=== PATIENT | female | born 1940 | race Two or more races ===

== ENCOUNTER 2017-09-30 10:02 | Inpatient (IN) | payer MEDICARE, MEDICAID ==
[~2017-09-30] VITALS: Ht 162.6 cm; Wt 64.0 kg
[~2017-09-30 10:02] MED LIST: ACET325T82 PO; BUME1TAB PO; CIPR-173 PO; LEVO200I5 IV; METO1TAB9 PO; SPIR50TA23 PO
[2017-09-30] MEDS ORDERED: MORPHINE SULFATE 4 MG/ML SYR/VIAL IV PRN (11:15)
[2017-09-30] MEDS ORDERED: NITROGLYCERIN 0.4 MG SL TAB SL PRN (11:15)
[2017-09-30] MEDS ORDERED: ERTAPENEM SOD INJ 1 GM in SODIUM CHL 0.9% 50 ML IV ONE (11:15)
[2017-09-30 11:34] VITALS: BP 128/70
[2017-09-30 11:45] VITALS: BP 128/70
[2017-09-30] MEDS ORDERED: METO-158 PO (11:56)
[2017-09-30] MEDS ORDERED: LEVO75TA6 PO (11:56)
[2017-09-30] MEDS ORDERED: SPIR25TA89 PO (11:56)
[2017-09-30 12:13] LABS: Basophils # (auto) 0.1 uL; Eosinophils # (auto) 0.2 uL; Eosinophils % (auto) 2.4 % (0.0-7.0); Hematocrit 41.2 % (36.0-46.0); Hemoglobin 13.4 g/dL (12.2-16.2); Lymphocytes # (auto) 3.3 uL; Mean Corpuscular Hemoglobin 27.5 pg (28.0-32.0); Mean Corpuscular Hgb Conc. 32.4 g/dL (32.0-36.0); Mean Corpuscular Volume 84.8 fL (80.0-100.0); Monocytes # (auto) 0.6 uL; Monocytes % (auto) 6.6 % (0.0-12.0); Neutrophils # (auto) 4.7 uL; Nucleated Red Blood Cells % 0.1 %; Platelet Count (auto) 329 10^3/uL (140-450); Red Blood Cells 4.86 10^6/uL (4.0-5.20); Red Cell Distribution Width 14.8 % (11.8-14.3); White Blood Cell 8.8 10^3/uL (4.4-10.8)
[2017-09-30 12:35] LABS: Albumin 3.6 g/dL (3.4-5.0); BUN/Creatinine Ratio 20.8; Calcium 9.3 mg/dL (8.5-10.1); Potassium 4.6 mmol/L (3.5-5.1)
[2017-09-30 12:38] LABS: Bilirubin, Total 0.3 mg/dL (0.2-1.0); Total Protein 7.9 g/dL (6.4-8.2)
[2017-09-30 13:04] LABS: Urine Bacteria NONE SEEN /hpf (None Seen); Urine Blood Negative /uL (Negative); Urine Specific Gravity 1.004 (1.001-1.035); Urine WBC <1 /hpf (0 - 5)
[2017-09-30] MEDS ORDERED: LIDOCAINE 1% HCL (LOCAL ANESTH.) INJ 20ML MDV ID ONE (14:45)
[2017-09-30 17:12] VITALS: BP 117/67
[2017-09-30 22:00] VITALS: BP 111/67
[2017-09-30] MEDS: SODIUM CHLOR 0.9% PF (SALINE LOCK) 10ML VIAL IV SCH (22:00)
[2017-09-30] MEDS: METOPROLOL TARTRATE 25 MG TAB PO SCH (22:15)
[2017-10-01 06:00] VITALS: BP 135/72
[2017-10-01] MEDS ORDERED: LEVOTHYROXINE SODIUM 25 MCG TAB PO SCH (07:00)
[2017-10-01 09:13] VITALS: BP 112/52
[2017-10-01] MEDS: ERTAPENEM SOD INJ 1 GM in SODIUM CHL 0.9% 50 ML IV SCH (11:32)
[2017-10-01] MEDS: BUMETANIDE 1 MG TAB PO SCH (11:33)
[2017-10-01] MEDS: SPIRONOLACTONE 25 MG TAB PO SCH (11:33)
[2017-10-01] MEDS: METOPROLOL TARTRATE 25 MG TAB PO SCH ×2 (11:33→21:21)
[2017-10-01] MEDS: SODIUM CHLOR 0.9% PF (SALINE LOCK) 10ML VIAL IV SCH ×2 (11:34→21:21)
[2017-10-01] MEDS: DOCUSATE SOD 100 MG CAP PO PRN (11:58)
[2017-10-01] MEDS: ACETAMINOPHEN 500 MG TAB PO PRN ×2 (12:17→18:01)
[2017-10-01 12:30] VITALS: BP 127/75
[2017-10-01 17:00] VITALS: BP 109/60
[2017-10-01 21:32] VITALS: BP 120/71
[2017-10-02 05:24] VITALS: BP 109/67
[2017-10-02] MEDS ORDERED: LEVOTHYROXINE SODIUM 25 MCG TAB PO SCH (07:00)
[2017-10-02 08:00] VITALS: BP 124/98
[2017-10-02] MEDS: SPIRONOLACTONE 25 MG TAB PO SCH (10:52)
[2017-10-02] MEDS: DOCUSATE SOD 100 MG CAP PO PRN (10:52)
[2017-10-02] MEDS: BUMETANIDE 1 MG TAB PO SCH (10:53)
[2017-10-02] MEDS: SODIUM CHLOR 0.9% PF (SALINE LOCK) 10ML VIAL IV SCH (10:53)
[2017-10-02] MEDS: ERTAPENEM SOD INJ 1 GM in SODIUM CHL 0.9% 50 ML IV SCH (10:53)
[2017-10-02] MEDS: METOPROLOL TARTRATE 25 MG TAB PO SCH (10:55)
[2017-10-02 12:00] VITALS: BP 105/50
[2017-10-02 12:02] VITALS: BP 124/98
== END 2017-10-02 13:15 | disposition home or self-care (01) | DRG 463 ==
LOC: TELE-WESTW 10:02
PROVIDERS: ADMIT Internal Medicine; ATTEND Internal Medicine
PROC: 02HV33Z Insertion of Infusion Device into Superior Vena Cava, Percutaneous Approach (ICD-10-PCS; principal; 2017-09-30)
DX: N39.0 Urinary tract infection, site not specified (principal); I42.0 Dilated cardiomyopathy; B96.20 Unspecified Escherichia coli [E. coli] as the cause of diseases classified elsewhere; E03.9 Hypothyroidism, unspecified; Z79.899 Other long term (current) drug therapy
CPT/HCPCS: 36415; 36569; 71045; 80053; 81001; 84443; 85025; J1335

== ENCOUNTER 2018-08-30 04:15 | Inpatient (IN) | payer MEDICAID, MEDICARE ==
[~2018-08-30] VITALS: Ht 160 cm; Wt 67.7 kg
[~2018-08-30 04:15] MED LIST changes: -CIPR-173 PO; -LEVO200I5 IV; +LEVO75TA6 PO; +METO-158 PO; -METO1TAB9 PO; +SPIR25TA8 PO; -SPIR50TA23 PO
[2018-08-30 05:48] LABS: Basophils # (auto) 0.1 uL; Basophils % (auto) 0.7 % (0.0-2.0); Eosinophils # (auto) 0.1 uL; Eosinophils % (auto) 1.3 % (0.0-7.0); Hematocrit 41.9 % (36.0-46.0); Hemoglobin 13.6 g/dL (12.2-16.2); Lymphocytes # (auto) 1.7 uL; Lymphocytes % (auto) 21.1 % (10.0-50.0); Mean Corpuscular Hemoglobin 27.8 pg (28.0-32.0); Mean Corpuscular Hgb Conc. 32.4 g/dL (32.0-36.0); Mean Corpuscular Volume 85.7 fL (80.0-100.0); Monocytes # (auto) 0.6 uL; Monocytes % (auto) 7.5 % (0.0-12.0); Neutrophils # (auto) 5.5 uL; Neutrophils % (auto) 69.4 % (37.0-80.0); Platelet Count (auto) 300 10^3/uL (140-450); Red Blood Cells 4.88 10^6/uL (4.0-5.20); Red Cell Distribution Width 15.5 % (11.8-14.3); White Blood Cell 7.9 10^3/uL (4.4-10.8)
[2018-08-30 06:10] LABS: Albumin 3.2 g/dL (3.4-5.0); Calcium 8.3 mg/dL (8.5-10.1); Potassium 4.1 mmol/L (3.5-5.1)
[2018-08-30 06:16] LABS: BUN/Creatinine Ratio 18.3; Bilirubin, Total 0.3 mg/dL (0.2-1.0)
[2018-08-30 07:01] LABS: Urine Bacteria NONE SEEN /hpf (None Seen); Urine Blood Negative /uL (Negative); Urine Specific Gravity 1.013 (1.001-1.035); Urine WBC <1 /hpf (0 - 5)
[2018-08-30] MEDS ORDERED: FUROSEMIDE 20 MG/2 ML VIAL IV ONE (08:15)
[2018-08-30] MEDS ORDERED: ALBUTEROL SULF 2.5 MG/0.5ML(0.5%) NEB SOLN NEB PRN (09:45)
[2018-08-30] MEDS ORDERED: LORazepam 0.5 MG TAB PO PRN (09:45)
[2018-08-30] MEDS ORDERED: ACETAMINOPHEN 500 MG TAB PO PRN (09:45)
[2018-08-30] MEDS ORDERED: TEMAZEPAM 15 MG CAP PO PRN (09:45)
[2018-08-30] MEDS ORDERED: HYDROcodone-ACET 5/325MG TAB PO PRN (09:45)
[2018-08-30] MEDS ORDERED: LACTULOSE 20Gm/30ML SOLN PO PRN (09:45)
[2018-08-30] MEDS ORDERED: PROMETHAZINE HCL 25 MG/ML 1ML IV PRN (09:45)
[2018-08-30] MEDS ORDERED: MORPHINE SULFATE 10 MG/ML INJ 1ML SDV IV PRN ×2 (09:45)
[2018-08-30] MEDS ORDERED: NITROGLYCERIN 0.4 MG SL TAB SL PRN (09:45)
[2018-08-30] MEDS ORDERED: POTASSIUM CHL 20 Meq TABLET PO SCH (10:00)
[2018-08-30] MEDS ORDERED: METOPROLOL TARTRATE 50 MG TAB PO SCH (10:00)
[2018-08-30] MEDS: FUROSEMIDE 40 MG/4 ML VIAL IV SCH (10:00)
--- NOTE | 2018-08-30 10:38 | NUR ---
Respiratory note: ASSESSED PATIENT FOR PRN TX. PATIENT IS SLIGHTLY SHORT OF BREATH, PT IS AWAKE AND ALERT. BREATH SOUNDS ARE CLEAR, HR 88, RR 16, SPO2 100% ON 2 L NASAL CANNULA. PATIENT TOLERATED TX WELL, NO ADVERSE REACTIONS NOTED. PATIENT AND PATIENT FAMILY IS AWARE TO HAVE RESPIRATORY PAGED IF BREATHING TX IS NEEDED. WILL CONTINUE TO MONITOR PATIENT.
[2018-08-30 10:59] VITALS: BP 112/62
[2018-08-30] MEDS: SPIRONOLACTONE 25 MG TAB PO SCH (11:12)
[2018-08-30] MEDS: PANTOPRAZOLE 40 MG TAB PO SCH (11:12)
[2018-08-30] MEDS: ENOXAPARIN SOD 40 MG/0.4 ML SYRINGE SC SCH (11:13)
[2018-08-30] MEDS: SODIUM CHLOR 0.9% PF (SALINE LOCK) 10ML VIAL/SYR IV SCH ×2 (14:13→23:28)
--- NOTE | 2018-08-30 14:45 | NUR ---
Telemetry admit from [facility] admitted to Telemetry unit after SBAR received. Patient oriented to Kenia Ventura, primary RN, unit, room, bed, and unit policies regarding patient care and visiting hours. Patient now on continuous telemetry monitoring, tele box # HC1 and telemetry reading on arrival to unit is . Patient placed on bedside oxygen, weighed by bedscale and encouraged to call if they need something. All questions and concerns addressed, patient verbalized understanding. Note: PT SPEAKS RESTORATION AND CAN ONLY SPEAK AND UNDERSTAND VERY VERY LITTLE JAPANESE. SON WAS AT BEDSIDE TO INTERPRET FOR PT. SON'S CONTACT INFORMATION ON FILE.
[2018-08-30] MEDS ORDERED: ALLO100T PO (15:08)
[2018-08-30] MEDS ORDERED: METO25TA5 PO (15:08)
[2018-08-30] MEDS ORDERED: DOCU100T15 PO (15:08)
[2018-08-30] MEDS ORDERED: LEVO100T8 PO (15:08)
[2018-08-30 16:58] VITALS: BP 104/61
--- NOTE | 2018-08-30 19:00 | NUR ---
Opening Shift Note Assumed care of patient, awake and alert. Family on bedside No S/S of distress/SOB or pain. Instructed on POC and to call for assist PRN, will continue to monitor for changes Q1hr and PRN.
--- NOTE | 2018-08-30 19:28 | NUR ---
Respiratory note: ASSESSMENT FOR MED NEB TX. PT PRESENTING NO RESPIRATORY DISTRESS AT THIS TIME. HR 88, SPO2 96% ON ROOM AIR, RR 20, BS CLEAR/DIMINISHED. MED NEB TX NOT INDICATED AT THIS TIME, WILL CONTINUE TO MONITOR.
[2018-08-30 20:00] VITALS: BP 103/65
[2018-08-30 22:00] VITALS: BP 103/65
[2018-08-31 05:00] VITALS: BP 107/59
[2018-08-31 05:15] LABS: Albumin 3.2 g/dL (3.4-5.0); Calcium 8.4 mg/dL (8.5-10.1); Potassium 4.4 mmol/L (3.5-5.1)
[2018-08-31 05:20] LABS: BUN/Creatinine Ratio 19.3; Bilirubin, Total 0.6 mg/dL (0.2-1.0); Total Protein 6.7 g/dL (6.4-8.2)
[2018-08-31] MEDS: SODIUM CHLOR 0.9% PF (SALINE LOCK) 10ML VIAL/SYR IV SCH (06:39)
[2018-08-31] MEDS ORDERED: LEVOTHYROXINE SODIUM 100 MCG TAB PO SCH (07:00)
--- NOTE | 2018-08-31 07:30 | NUR ---
Opening Shift Note Assumed care of patient, awake and alert. No S/S of distress/SOB or pain. Instructed on POC and to call for assist PRN, will continue to monitor for changes Q1hr and PRN.
[2018-08-31 08:00] VITALS: BP 96/48
[2018-08-31 09:00] VITALS: BP 96/48
[2018-08-31] MEDS ORDERED: METOPROLOL SUCCINATE XL 50 MG TAB PO SCH (10:00)
[2018-08-31] MEDS: ENOXAPARIN SOD 40 MG/0.4 ML SYRINGE SC SCH (10:01)
[2018-08-31] MEDS: FUROSEMIDE 40 MG/4 ML VIAL IV SCH (10:01)
[2018-08-31] MEDS: SPIRONOLACTONE 25 MG TAB PO SCH (10:01)
[2018-08-31] MEDS: PANTOPRAZOLE 40 MG TAB PO SCH (10:01)
--- NOTE | 2018-08-31 10:09 | NUR ---
RT NOTE: NO INDICATION FOR TX NOTED AT THIS TIME. NO SIGNS OF RESPIRATORY DISTRESS. LUNG SOUNDS CLEAR DIMINISHED T/O. ON 1L NC SPO2 97 HR 79 RR 18. FAMILY AND RN AT BEDSIDE. WILL CONTINUE TO MONITOR.
[2018-08-31 13:00] VITALS: BP 102/51
[2018-08-31 14:25] VITALS: BP 96/48
--- NOTE | 2018-08-31 15:49 | NUR ---
Discharge instructions given as ordered. Encourage to follow up with PMD as instructed. All questions and concerns addressed. Patient verbalized understanding. Medication reconciliation form completed and copy given to patient. H. IV removed with catheter intact, pressure dressing applied. Telemetry unit returned to ICU. Patient taken to vehicle via wheelchair with all personal belongings, accompanied by staff and family member. No distress noted at time of departure.
== END 2018-08-31 16:00 | disposition home or self-care (01) | DRG 194 ==
LOC: EDUNIT# 04:15 → ER 04:15 → EDBD 04:15 → EDSEX 04:15 → TELE 09:34 → TELE-WESTW 15:06
PROVIDERS: ADMIT Internal Medicine; ATTEND Internal Medicine
DX: I13.0 Hypertensive heart and chronic kidney disease with heart failure and stage 1 through stage 4 chronic kidney disease, or unspecified chronic kidney disease (principal); J96.20 Acute and chronic respiratory failure, unspecified whether with hypoxia or hypercapnia; R57.9 Shock, unspecified; N18.3 Chronic kidney disease, stage 3 (moderate); E03.9 Hypothyroidism, unspecified; I08.0 Rheumatic disorders of both mitral and aortic valves; I25.10 Atherosclerotic heart disease of native coronary artery without angina pectoris; I42.0 Dilated cardiomyopathy; I50.43 Acute on chronic combined systolic (congestive) and diastolic (congestive) heart failure; R73.9 Hyperglycemia, unspecified; Z91.14 Patient's other noncompliance with medication regimen; Z91.19 Patient's noncompliance with other medical treatment and regimen; Z99.81 Dependence on supplemental oxygen; Z90.49 Acquired absence of other specified parts of digestive tract; Z88.0 Allergy status to penicillin; Z79.899 Other long term (current) drug therapy; Z83.3 Family history of diabetes mellitus
CPT/HCPCS: 36415; 36600; 71045; 80053; 81001; 82550; 82805; 83605; 83880; 84443; 84484; 85025; 85379; 87040; 87804; 93005; 93306; 94640; 94761; 96372; 96374; 96375; G0378

== ENCOUNTER 2019-06-14 10:51 | Inpatient (IN) | payer MEDICARE, MEDICAID ==
[~2019-06-14] VITALS: Ht 160 cm; Wt 67.8 kg
[~2019-06-14 10:51] MED LIST changes: +ALLO100T PO; -BUME1TAB PO; +BUME1TAB3 PO; +DOCU100T15 PO; +LEVO100T8 PO; -LEVO75TA6 PO; -METO-158 PO; +METO25TA5 PO
[2019-06-14 11:25] VITALS: BP 136/73
--- NOTE | 2019-06-14 11:30 | NUR ---
RECEIVED PATIENT TO THE FLOOR, AWAKE ALERT AND ORIENTED. PATIENT AMBULATED TO BATHROOM STAND BY ASSIST. FAMILY AT BEDSIDE PATIENT DOES NOT SPEAK FRISIAN. BED LOCKED IN LOWEST POSITION WITH TWO SIDE RAILS UP AND CALL LIGHT IN REACH. INSTRUCTED ON THE PLAN OF CARE.
[2019-06-14] MEDS ORDERED: cefTRIAXone 1GM/50ML D5W 50 ML IV ONE (11:45)
[2019-06-14] MEDS ORDERED: ACETAMINOPHEN 500 MG TAB PO PRN (11:45)
[2019-06-14] MEDS ORDERED: MORPHINE SULF INJ 2 MG/ML SYRINGE 1ML IV PRN (11:45)
[2019-06-14] MEDS ORDERED: DOCUSATE SOD 100 MG CAP PO PRN (11:45)
[2019-06-14] MEDS ORDERED: NITROGLYCERIN 0.4 MG SL TAB SL PRN (11:45)
[2019-06-14] MEDS ORDERED: AZITHROMYCIN 500MG/ 250ML 250 ML IV ONE (11:45)
[2019-06-14] MEDS: ALBUTEROL SULF 2.5 MG/0.5ML(0.5%) NEB SOLN NEB SCH ×2 (12:20→19:31)
[2019-06-14] MEDS: IPRATROPIUM BROM 0.5 MG/2.5ML INH SOL NEB SCH ×2 (12:20→19:31)
[2019-06-14 13:20] LABS: Basophils # (auto) 0.1 uL; Basophils % (auto) 0.6 % (0.0-2.0); Eosinophils # (auto) 0.1 uL; Eosinophils % (auto) 1.2 % (0.0-7.0); Hemoglobin 14.3 g/dL (12.2-16.2); Lymphocytes # (auto) 3.1 uL; Lymphocytes % (auto) 27.6 % (10.0-50.0); Mean Corpuscular Hemoglobin 27.4 pg (28.0-32.0); Mean Corpuscular Hgb Conc. 32.5 g/dL (32.0-36.0); Mean Corpuscular Volume 84.4 fL (80.0-100.0); Monocytes # (auto) 0.8 uL; Monocytes % (auto) 6.8 % (0.0-12.0); Neutrophils # (auto) 7.1 uL; Neutrophils % (auto) 63.8 % (37.0-80.0); Platelet Count (auto) 341 10^3/uL (140-450); Red Blood Cells 5.22 10^6/uL (4.0-5.20); Red Cell Distribution Width 14.7 % (11.8-14.3); White Blood Cell 11.1 10^3/uL (4.4-10.8)
[2019-06-14 13:37] LABS: Albumin 3.6 g/dL (3.4-5.0); BUN/Creatinine Ratio 20.9; Calcium 8.8 mg/dL (8.5-10.1); Potassium 4.3 mmol/L (3.5-5.1)
[2019-06-14 13:40] LABS: Bilirubin, Total 0.3 mg/dL (0.2-1.0); Total Protein 7.7 g/dL (6.4-8.2)
[2019-06-14] MEDS ORDERED: BUMETANIDE 1 MG TAB PO ONE (16:00)
[2019-06-14 17:00] VITALS: BP 114/67
--- NOTE | 2019-06-14 18:35 | NUR ---
URINE SENT OUT TO LAB AWAITING TO COLLECT RESPIRATORY CULTURE. PER PATIENTS DAUGHTER NO PHLEGM PRESENT.
[2019-06-14 19:32] LABS: Urine Bacteria NONE SEEN /hpf (None Seen); Urine Blood Negative /uL (Negative); Urine Specific Gravity 1.005 (1.001-1.035); Urine WBC <1 /hpf (0 - 5)
--- NOTE | 2019-06-14 19:36 | NUR ---
Opening Shift Note Assumed care of patient, awake and alert. No S/S of distress/SOB or pain. Safety measures in place bed in lowest position, side rails x 2 up, and call light within reach. Instructed on POC and to call for assist PRN, will continue to monitor for changes Q1hr and PRN.
[2019-06-14 20:00] VITALS: BP 120/69
--- NOTE | 2019-06-14 20:15 | NUR ---
DAUGHTER RUTH ANN WILL STAY OVER NIGHT WITH PATIENT APPROVED BY CHARGE NURSE, MARIBELL.
--- NOTE | 2019-06-14 21:27 | NUR ---
Opening Shift Note Assumed care of patient, awake and alert. Family at bed side. No S/S of distress/SOB or pain. Safety measures in place bed in lowest position, side rails x 2 up, and call light within reach. Instructed on POC and to call for assist PRN, will continue to monitor for changes Q1hr and PRN. Addendum: 06/14/19 at 2131 by JERONIMO OSWALD RN RN WRONG TIME
[2019-06-14 21:36] VITALS: BP 120/69
[2019-06-14] MEDS: METOPROLOL TARTRATE 25 MG TAB PO SCH (22:00)
--- NOTE | 2019-06-14 22:00 | NUR ---
220 LOPRESSOR REFUSED PATIENTS DAUGHTER/CAREGIVER RUTH ANN, "WE ONLY GIVE HER HER BLOOD PRESSURE MEDICATION WHEN IT GETS HIGH, ITS OK TO SKIP THIS DOSE" RISKS OF SKIPPING SCHEDULE MEDICATIONS EXPLAINED. CAREGIVER VERBALIZES UNDERSTANDING. CONTINUES TO REFUSE.
[2019-06-14 23:28] VITALS: BP 120/69
[2019-06-15 04:48] VITALS: BP 112/63
[2019-06-15] MEDS: IPRATROPIUM BROM 0.5 MG/2.5ML INH SOL NEB SCH ×2 (05:44→11:45)
[2019-06-15] MEDS: ALBUTEROL SULF 2.5 MG/0.5ML(0.5%) NEB SOLN NEB SCH ×2 (05:44→11:45)
[2019-06-15 06:01] LABS: Basophils # (auto) 0.1 uL; Basophils % (auto) 0.6 % (0.0-2.0); Eosinophils # (auto) 0.1 uL; Eosinophils % (auto) 0.9 % (0.0-7.0); Hematocrit 40.2 % (36.0-46.0); Hemoglobin 13.5 g/dL (12.2-16.2); Lymphocytes # (auto) 3.2 uL; Lymphocytes % (auto) 31.5 % (10.0-50.0); Mean Corpuscular Hemoglobin 28.3 pg (28.0-32.0); Mean Corpuscular Hgb Conc. 33.6 g/dL (32.0-36.0); Mean Corpuscular Volume 84.1 fL (80.0-100.0); Monocytes # (auto) 0.7 uL; Monocytes % (auto) 7.5 % (0.0-12.0); Neutrophils % (auto) 59.5 % (37.0-80.0); Nucleated Red Blood Cells % 0.1 %; Platelet Count (auto) 313 10^3/uL (140-450); Red Blood Cells 4.78 10^6/uL (4.0-5.20); Red Cell Distribution Width 14.3 % (11.8-14.3)
[2019-06-15 06:11] LABS: Potassium 4.4 mmol/L (3.5-5.1)
[2019-06-15 06:17] LABS: BUN/Creatinine Ratio 22.1; Calcium 8.6 mg/dL (8.5-10.1)
[2019-06-15] MEDS ORDERED: LEVOTHYROXINE SODIUM 100 MCG TAB PO SCH (07:00)
--- NOTE | 2019-06-15 07:35 | NUR ---
CARE ENDORSED TO DAY SHIFT RNSANDOR
--- NOTE | 2019-06-15 07:46 | NUR ---
OPENING NOTE Assumed care of patient from NOC RNNicole. Patient awake and alert with no S/S of distress/SOB or pain. Patient's daughter is at bedside and is also retail stocker. Instructed on POC and to call for assist PRN, patient and daughter verbalized understanding. Bed in lowest, locked position with side rails up x2. Fall precautions in place and call light within reach. Will continue to monitor for changes Q1hr and PRN.
[2019-06-15 08:30] VITALS: BP 131/67
[2019-06-15] MEDS ORDERED: cefTRIAXone 1GM/50ML D5W 50 ML IV SCH (09:00)
[2019-06-15] MEDS: METOPROLOL TARTRATE 25 MG TAB PO SCH (09:36)
[2019-06-15] MEDS ORDERED: ALLOPURINOL 100 MG TAB PO SCH (10:00)
[2019-06-15] MEDS ORDERED: AZITHROMYCIN 500MG/ 250ML 250 ML IV SCH (10:00)
[2019-06-15] MEDS ORDERED: BUMETANIDE 1 MG TAB PO SCH (10:00)
[2019-06-15] MEDS ORDERED: SPIRONOLACTONE 25 MG TAB PO SCH (10:00)
--- NOTE | 2019-06-15 10:18 | NUR ---
ROUNDS Patient resting in bed, no S/S of SOB/distress noted. Patient's daughter at bedside. Will continue to monitor.
[2019-06-15 12:30] VITALS: BP 107/64
--- NOTE | 2019-06-15 13:50 | NUR ---
DISCHARGE Discharge instructions given as ordered. Encouraged to follow up with PMD/cardiology as instructed. All questions and concerns addressed, patient/daughter verbalized understanding. Medication reconciliation form completed and copy given to patient. IV removed with catheter intact and pressure dressing applied. Telemetry unit returned to ICU. Patient taken to vehicle via wheelchair with all personal belongings, accompanied by staff and family member. No distress noted at time of departure.
== END 2019-06-15 13:50 | disposition home or self-care (01) | DRG 202 ==
LOC: TELE-EAST 10:51
PROVIDERS: ADMIT Internal Medicine; ATTEND Internal Medicine
DX: J20.9 Acute bronchitis, unspecified (principal); I50.23 Acute on chronic systolic (congestive) heart failure; L02.214 Cutaneous abscess of groin; N18.3 Chronic kidney disease, stage 3 (moderate); E03.9 Hypothyroidism, unspecified; M10.9 Gout, unspecified; G25.81 Restless legs syndrome; Z91.81 History of falling; Z88.0 Allergy status to penicillin
CPT/HCPCS: 36415; 70450; 71045; 80048; 80053; 81001; 83880; 84443; 85025; 87040; 94640; G0378; J0696

== ENCOUNTER 2019-10-11 10:35 | Emergency (ER) | payer MEDICARE, MEDICAID ==
[2019-10-11 11:47] LABS: Basophils # (auto) 0 uL; Basophils % (auto) 0.5 % (0.0-2.0); Eosinophils # (auto) 0.1 uL; Eosinophils % (auto) 1.2 % (0.0-7.0); Hematocrit 38.3 % (36.0-46.0); Hemoglobin 12.6 g/dL (12.2-16.2); Lymphocytes # (auto) 2.7 uL; Lymphocytes % (auto) 30.7 % (10.0-50.0); Mean Corpuscular Hemoglobin 27.9 pg (28.0-32.0); Mean Corpuscular Hgb Conc. 32.9 g/dL (32.0-36.0); Mean Corpuscular Volume 84.9 fL (80.0-100.0); Monocytes # (auto) 0.9 uL; Monocytes % (auto) 9.6 % (0.0-12.0); Neutrophils # (auto) 5.2 uL; Platelet Count (auto) 285 10^3/uL (140-450); Red Blood Cells 4.51 10^6/uL (4.0-5.20); Red Cell Distribution Width 14.9 % (11.8-14.3); White Blood Cell 8.9 10^3/uL (4.4-10.8)
[2019-10-11 12:05] LABS: Albumin 3.1 g/dL (3.4-5.0); Calcium 8.7 mg/dL (8.5-10.1); Potassium 4.1 mmol/L (3.5-5.1)
[2019-10-11 12:11] LABS: BUN/Creatinine Ratio 20.3; Bilirubin, Total 0.3 mg/dL (0.2-1.0); Total Protein 7.2 g/dL (6.4-8.2)
[2019-10-11 13:00] VITALS: BP 112/65
== END 2019-10-11 13:51 | disposition home or self-care (01) ==
LOC: ER 10:35
DX: I13.0 Hypertensive heart and chronic kidney disease with heart failure and stage 1 through stage 4 chronic kidney disease, or unspecified chronic kidney disease (principal); N18.3 Chronic kidney disease, stage 3 (moderate); I50.9 Heart failure, unspecified; Z90.49 Acquired absence of other specified parts of digestive tract
CPT/HCPCS: 36415; 71045; 80053; 83880; 84484; 85025; 93005

== ENCOUNTER 2020-09-27 02:39 | Emergency (ER) | payer MEDICARE, MEDICAID ==
[~2020-09-27] VITALS: Ht 160 cm; Wt 62.6 kg
[2020-09-27 03:14] VITALS: BP 138/78
== END 2020-09-27 03:37 | disposition left against medical advice (07) ==
LOC: EDBD 02:39 → ER 02:43
DX: R51.9 Headache, unspecified (principal); Z53.21 Procedure and treatment not carried out due to patient leaving prior to being seen by health care provider
CPT/HCPCS: 93005

== ENCOUNTER → 2021-01-10 | Outpatient (CLI) | payer MEDICARE, MEDICAID | END | disposition home or self-care (01) | LOC: LAB 17:52 | PROVIDERS: ATTEND Nurse Practitioner Family | DX: Z20.822 Contact with and (suspected) exposure to COVID-19 (principal) | CPT/HCPCS: C9803; U0003 ==

== ENCOUNTER 2021-11-14 14:36 | Inpatient (IN) | payer MEDICARE, MEDICAID ==
[~2021-11-14] VITALS: Ht 162.6 cm; Wt 66.6 kg
[2021-11-14 15:42] LABS: Basophils # (auto) 0.1 10 ^3/uL (0-0.2); Basophils % (auto) 0.7 % (0.0-2.0); Eosinophils # (auto) 0.1 10 ^3/uL (0-0.8); Eosinophils % (auto) 1.4 % (0.0-7.0); Hematocrit 37.2 % (36.0-46.0); Hemoglobin 12.4 g/dL (12.2-16.2); Lymphocytes # (auto) 2.7 10 ^3/uL (0.4-5.4); Lymphocytes % (auto) 28.7 % (10.0-50.0); Mean Corpuscular Hemoglobin 27.6 pg (28.0-32.0); Mean Corpuscular Hgb Conc. 33.4 g/dL (32.0-36.0); Mean Corpuscular Volume 82.5 fL (80.0-100.0); Monocytes # (auto) 0.6 10 ^3/uL (0-1.3); Monocytes % (auto) 6.7 % (0.0-12.0); Neutrophils # (auto) 5.8 10 ^3/uL (1.6-8.6); Neutrophils % (auto) 62.5 % (37.0-80.0); Nucleated Red Blood Cells % 0.1 %; Red Blood Cells 4.51 10^6/uL (4.0-5.20); Red Cell Distribution Width 15.3 % (11.8-14.3); White Blood Cell 9.3 10^3/uL (4.4-10.8)
[2021-11-14 15:59] LABS: Albumin 3.2 g/dL (3.4-5.0); Magnesium 2.3 mg/dL (1.6-2.6); Potassium 4.4 mmol/L (3.5-5.1)
[2021-11-14 16:05] LABS: BUN/Creatinine Ratio 19.5; Bilirubin, Total 0.4 mg/dL (0.2-1.0)
[2021-11-14 16:21] LABS: INR 1.06 (0.9-1.15); Partial Thromboplastin Time 25.3 sec (23.6-33.0)
[2021-11-14] MEDS ORDERED: CIPROFLOXACIN 400MG/200ML 200 ML IV ONE (18:30)
[2021-11-14] MEDS ORDERED: cefTRIAXone 1GM/50ML D5W 50 ML IV ONE (18:30)
[2021-11-14] MEDS ORDERED: BUMETANIDE 1 MG TAB PO ONE (18:30)
[2021-11-14] MEDS ORDERED: ACETAMINOPHEN 325 MG TAB PO PRN (19:00)
[2021-11-14] MEDS ORDERED: TEMAZEPAM 15 MG CAP PO PRN (19:00)
[2021-11-14] MEDS ORDERED: NITROGLYCERIN 0.4 MG SL TAB SL PRN (19:00)
[2021-11-14] MEDS ORDERED: MORPHINE SULFATE INJECTION 2 MG/ML SYRG IV PRN (19:00)
[2021-11-14] MEDS ORDERED: ALUM & MAG HYDROX-SIMETH LIQ(MAALOX) 30 ML PO PRN (19:00)
[2021-11-14] MEDS ORDERED: HYDROcodone-ACET 5/325MG TAB PO PRN (19:00)
[2021-11-14] MEDS ORDERED: ONDANSETRON HCL 4 MG/2 ML VIAL IV PRN (19:00)
[2021-11-14] MEDS ORDERED: ERGOCALCIFEROL 50,000 UNIT(1.25MG) CAP PO SCH (19:45)
[2021-11-14 20:26] LABS: Urine Bacteria NONE SEEN /hpf (None Seen); Urine Blood Negative /uL (Negative); Urine Hyaline Cast FEW /lpf (0 - 2); Urine Specific Gravity 1.015 (1.001-1.035); Urine WBC <1 /hpf (0 - 5)
[2021-11-14] MEDS: SODIUM CHLOR 0.9% PF (SALINE LOCK) 10ML VIAL/SYR IV SCH (21:22)
[2021-11-14 22:00] VITALS: BP 127/65
[2021-11-15] MEDS: SODIUM CHLOR 0.9% PF (SALINE LOCK) 10ML VIAL/SYR IV SCH ×2 (05:04→18:54)
[2021-11-15 06:49] LABS: Basophils # (auto) 0 10 ^3/uL (0-0.2); Basophils % (auto) 0.4 % (0.0-2.0); Eosinophils # (auto) 0.1 10 ^3/uL (0-0.8); Eosinophils % (auto) 1.1 % (0.0-7.0); Hematocrit 37.4 % (36.0-46.0); Hemoglobin 12.9 g/dL (12.2-16.2); Lymphocytes # (auto) 3.4 10 ^3/uL (0.4-5.4); Lymphocytes % (auto) 36.6 % (10.0-50.0); Mean Corpuscular Hemoglobin 28.2 pg (28.0-32.0); Mean Corpuscular Hgb Conc. 34.5 g/dL (32.0-36.0); Mean Corpuscular Volume 81.6 fL (80.0-100.0); Monocytes # (auto) 0.7 10 ^3/uL (0-1.3); Monocytes % (auto) 7.8 % (0.0-12.0); Neutrophils % (auto) 54.1 % (37.0-80.0); Nucleated Red Blood Cells % 0.1 %; Red Blood Cells 4.59 10^6/uL (4.0-5.20); White Blood Cell 9.2 10^3/uL (4.4-10.8)
[2021-11-15 07:01] LABS: Albumin 3.2 g/dL (3.4-5.0); Calcium 9.1 mg/dL (8.5-10.1); Potassium 3.7 mmol/L (3.5-5.1)
[2021-11-15 07:03] LABS: BUN/Creatinine Ratio 20.9
[2021-11-15 07:05] LABS: Bilirubin, Total 0.3 mg/dL (0.2-1.0); Total Protein 7.2 g/dL (6.4-8.2)
[2021-11-15 09:00] VITALS: BP 119/64
[2021-11-15] MEDS ORDERED: OPTISON 3ml Vial for INJ IV ONE (09:55)
[2021-11-15] MEDS ORDERED: cefTRIAXone 1GM/50ML D5W 50 ML IV SCH (10:00)
[2021-11-15 13:00] VITALS: BP 119/63
[2021-11-15] MEDS ORDERED: ALLOPURINOL 100 MG TAB PO ONE (13:15)
[2021-11-15] MEDS ORDERED: BUMETANIDE 1 MG TAB PO ONE (13:15)
[2021-11-15] MEDS ORDERED: SPIRONOLACTONE 25 MG TAB PO ONE (13:15)
[2021-11-15 17:00] VITALS: BP 130/61
[2021-11-15 17:32] VITALS: BP 128/80
[2021-11-16] MEDS ORDERED: LEVOTHYROXINE SODIUM 50 MCG TAB PO SCH (07:00)
[2021-11-16] MEDS ORDERED: ALLOPURINOL 100 MG TAB PO SCH (10:00)
[2021-11-16] MEDS ORDERED: SPIRONOLACTONE 25 MG TAB PO SCH (10:00)
[2021-11-16] MEDS ORDERED: BUMETANIDE 1 MG TAB PO SCH (10:00)
== END 2021-11-15 19:06 | disposition home or self-care (01) | DRG 291 ==
LOC: ER 14:36 → EDBD 14:36 → TELE 18:54 → TELE-WESTW 20:41
PROVIDERS: ADMIT Internal Medicine; ATTEND Internal Medicine
DX: I13.0 Hypertensive heart and chronic kidney disease with heart failure and stage 1 through stage 4 chronic kidney disease, or unspecified chronic kidney disease (principal); I50.23 Acute on chronic systolic (congestive) heart failure; G92.8 Other toxic encephalopathy; N30.00 Acute cystitis without hematuria; I42.0 Dilated cardiomyopathy; E03.9 Hypothyroidism, unspecified; I48.91 Unspecified atrial fibrillation; N18.31 Chronic kidney disease, stage 3a; R59.0 Localized enlarged lymph nodes; Z20.822 Contact with and (suspected) exposure to COVID-19; E55.9 Vitamin D deficiency, unspecified; Z83.3 Family history of diabetes mellitus; Z88.0 Allergy status to penicillin; Z82.49 Family history of ischemic heart disease and other diseases of the circulatory system
CPT/HCPCS: 36415; 70450; 71045; 71250; 73030; 80053; 81001; 82962; 83036; 83615; 83735; 83880; 84439; 84443; 84484; 85025; 85610; 85730; 87086; 93005; 93306; 96365; G0378; J0696; Q9956

== ENCOUNTER 2023-02-21 11:21 | Emergency (ER) | payer MEDICARE, MEDICAID ==
[~2023-02-21] VITALS: Ht 160 cm; Wt 63.6 kg
[~2023-02-21 11:21] MED LIST changes: -ACET325T82 PO; -SPIR25TA8 PO
[2023-02-21 12:23] VITALS: BP 149/72
[2023-02-21] MEDS ORDERED: ACETAMINOPHEN 500 MG TAB PO ONE (13:15)
[2023-02-21 13:41] LABS: Basophils # (auto) 0.1 10 ^3/uL (0-0.2); Basophils % (auto) 0.7 % (0.0-2.0); Eosinophils # (auto) 0.1 10 ^3/uL (0-0.8); Eosinophils % (auto) 1.2 % (0.0-7.0); Hematocrit 40.5 % (36.0-46.0); Hemoglobin 13.2 g/dL (12.2-16.2); Lymphocytes # (auto) 3.1 10 ^3/uL (0.4-5.4); Lymphocytes % (auto) 32.1 % (10.0-50.0); Mean Corpuscular Hemoglobin 27.5 pg (28.0-32.0); Mean Corpuscular Hgb Conc. 32.6 g/dL (32.0-36.0); Mean Corpuscular Volume 84.5 fL (80.0-100.0); Monocytes # (auto) 0.7 10 ^3/uL (0-1.3); Monocytes % (auto) 7.3 % (0.0-12.0); Neutrophils # (auto) 5.6 10 ^3/uL (1.6-8.6); Neutrophils % (auto) 58.7 % (37.0-80.0); Nucleated Red Blood Cells % 0.1 %; Red Blood Cells 4.79 10^6/uL (4.0-5.20); Red Cell Distribution Width 15.1 % (11.8-14.3); White Blood Cell 9.6 10^3/uL (4.4-10.8)
[2023-02-21 13:55] LABS: Albumin 3.1 g/dL (3.4-5.0); Calcium 8.5 mg/dL (8.5-10.1); Potassium 4.2 mmol/L (3.5-5.1)
[2023-02-21 14:00] LABS: Bilirubin, Total 0.4 mg/dL (0.2-1.0); Total Protein 6.6 g/dL (6.4-8.2)
== END 2023-02-21 15:51 | disposition home or self-care (01) ==
LOC: ER 11:21 → EDBD 11:21 → ER 15:47
DX: S29.011A Strain of muscle and tendon of front wall of thorax, initial encounter (principal); S09.8XXA Other specified injuries of head, initial encounter; I48.91 Unspecified atrial fibrillation; I13.0 Hypertensive heart and chronic kidney disease with heart failure and stage 1 through stage 4 chronic kidney disease, or unspecified chronic kidney disease; N18.9 Chronic kidney disease, unspecified; I50.1 Left ventricular failure, unspecified; M10.9 Gout, unspecified; Z90.49 Acquired absence of other specified parts of digestive tract; Z88.0 Allergy status to penicillin; Z79.899 Other long term (current) drug therapy; W18.39XA Other fall on same level, initial encounter; Y93.01 Activity, walking, marching and hiking; Y92.89 Other specified places as the place of occurrence of the external cause; Y99.8 Other external cause status
CPT/HCPCS: 36415; 70450; 71250; 80053; 83880; 84484; 85025; 93005

== ENCOUNTER 2023-05-06 09:35 | Inpatient (IN) | payer MEDICARE, MEDICAID ==
[~2023-05-06] VITALS: Ht 157.5 cm; Wt 62.7 kg
[2023-05-06 10:04] LABS: Basophils # (auto) 0 10 ^3/uL (0-0.2); Basophils % (auto) 0.4 % (0.0-2.0); Eosinophils # (auto) 0 10 ^3/uL (0-0.8); Eosinophils % (auto) 0.4 % (0.0-7.0); Hematocrit 41.5 % (36.0-46.0); Hemoglobin 13.5 g/dL (12.2-16.2); Lymphocytes # (auto) 3.9 10 ^3/uL (0.4-5.4); Lymphocytes % (auto) 51.6 % (10.0-50.0); Mean Corpuscular Hemoglobin 27.9 pg (28.0-32.0); Mean Corpuscular Hgb Conc. 32.6 g/dL (32.0-36.0); Mean Corpuscular Volume 85.6 fL (80.0-100.0); Monocytes # (auto) 0.6 10 ^3/uL (0-1.3); Monocytes % (auto) 7.7 % (0.0-12.0); Neutrophils % (auto) 39.9 % (37.0-80.0); Nucleated Red Blood Cells % 0.3 %; Red Blood Cells 4.85 10^6/uL (4.0-5.20); Red Cell Distribution Width 15.6 % (11.8-14.3); White Blood Cell 7.6 10^3/uL (4.4-10.8)
[2023-05-06 10:16] LABS: INR 1.07 (0.9-1.15); Partial Thromboplastin Time 30.7 SEC (24.5-34.5); Prothrombin Time 11.2 sec (9.3-11.8)
[2023-05-06 10:26] VITALS: O2SAT 96
[2023-05-06 10:27] LABS: Alanine Aminotransferase 12 U/L (7-40); Albumin 3.8 g/dL (3.2-4.8); Alkaline Phosphatase 75 U/L (46-116); Aspartate Aminotransferase 16 U/L (13-40); BUN/Creatinine Ratio 13.7 (10.0-20.0); Bilirubin, Total 0.2 mg/dL (0.2-1.0); Blood Urea Nitrogen 16 mg/dL (9-23); Calcium 8.4 mg/dL (8.5-10.1); Carbon Dioxide 21 mmol/L (20-30); Glucose 157 mg/dL (74-106); Total Protein 6.1 g/dL (5.7-8.2)
[2023-05-06 10:41] LABS: Anion Gap 8 (5-15); Chloride 106 mmol/L (98-107); Potassium 4.3 mmol/L (3.5-5.1); Sodium 135 mmol/L (136-145)
[2023-05-06] MEDS ORDERED: ACETAMINOPHEN 325 MG TAB PO ONE (12:45)
[2023-05-06] MEDS ORDERED: SODIUM CHLORIDE 0.9% 1,000 ML IV SCH (12:45)
[2023-05-06] MEDS ORDERED: ACETAMINOPHEN 325 MG TAB PO PRN (12:45)
[2023-05-06 12:47] LABS: Rapid Influenza A Negative (Negative); Rapid Influenza B Negative (Negative)
[2023-05-06 12:52] LABS: COVID19 ANTIGEN SOFIA FIA NEGATIVE (NEGATIVE)
[2023-05-06 13:13] LABS: Triglycerides 151 mg/dL (< 150)
[2023-05-06 13:14] LABS: LDL Cholesterol 69 mg/dL (< 100)
[2023-05-06 13:15] LABS: Cholesterol 138 mg/dL (< 200); HDL Cholesterol 38 mg/dL (40-59)
[2023-05-06] MEDS ORDERED: FUROSEMIDE 100 MG/10ML VIAL IV ONE (13:15)
[2023-05-06 14:33] LABS: Amphetamine Screen, Urine Neg (NEGATIVE); Benzodiazephine Screen, Urine Neg (NEGATIVE)
[2023-05-06 14:34] LABS: Barbiturate Scree,Urine Neg (NEGATIVE); Cannabinoid Screen, Urine Neg (NEGATIVE); Cocaine Screen, Urine Neg (NEGATIVE); Opiate Scree,Urine Neg (NEGATIVE); Phencyclidine Screen, Urine Neg (NEGATIVE)
[2023-05-06 14:37] LABS: Urine Bacteria NONE SEEN /hpf (None Seen); Urine Blood Negative /uL (Negative); Urine Clarity Clear (Clear); Urine Color Yellow (Yellow); Urine Mucus FEW (None Seen); Urine Protein, UAD TRACE (Negative); Urine Specific Gravity 1.022 (1.001-1.035); Urine Urobilinogen Normal (Negative); Urine WBC 8 /hpf (0 - 5); Urine pH 5.5 (5.0-8.0)
[2023-05-06] MEDS ORDERED: DEXTROSE (50%) 50ML SYRG IV PRN (16:30)
[2023-05-06 17:15] VITALS: BP 107/68; PULSE 80; RESP 20; TEMP 97.9; O2SAT 98
[2023-05-06] MEDS: InsuLIN REG 1unit/0.01ml Soln (100units/ml) SC SCH (18:00)
[2023-05-06] MEDS: ACCU-CHEK COMFORT CURVE STRIP VI SCH (18:20)
[2023-05-06 18:35] VITALS: PULSE 87; RESP 20; O2SAT 100
[2023-05-06 18:45] VITALS: PULSE 87; RESP 20; O2SAT 100
[2023-05-06] MEDS: IPRATROPIUM BROM 0.5 MG/2.5ML INH SOL NEB SCH (18:58)
[2023-05-06] MEDS: ALBUTEROL SULF 2.5 MG/0.5ML(0.5%) NEB SOLN NEB SCH (18:58)
[2023-05-06 19:09] VITALS: PULSE 84; RESP 18; O2SAT 2
[2023-05-06] MEDS: METOPROLOL TARTRATE 25 MG TAB PO SCH (21:59)
[2023-05-06 22:00] VITALS: BP 120/66; PULSE 84; RESP 17; TEMP 98; O2SAT 100
[2023-05-06] MEDS ORDERED: ATORVASTATIN 20 MG TAB PO SCH (22:00)
[2023-05-07] VITALS (14 sets, daily range): BP systolic 97–115; BP diastolic 52–61; PULSE 69–90; RESP 12–22; TEMP 97.8–99.2; O2SAT 94–100
[2023-05-07] MEDS: ACCU-CHEK COMFORT CURVE STRIP VI SCH ×4 (00:15→17:14)
[2023-05-07] MEDS: ALBUTEROL SULF 2.5 MG/0.5ML(0.5%) NEB SOLN NEB SCH ×4 (00:23→19:30)
[2023-05-07] MEDS: IPRATROPIUM BROM 0.5 MG/2.5ML INH SOL NEB SCH ×4 (00:23→19:30)
[2023-05-07] MEDS: InsuLIN REG 1unit/0.01ml Soln (100units/ml) SC SCH ×4 (06:00→17:14)
[2023-05-07 06:17] LABS: Basophils # (auto) 0 10 ^3/uL (0-0.2); Basophils % (auto) 0.5 % (0.0-2.0); Eosinophils # (auto) 0 10 ^3/uL (0-0.8); Eosinophils % (auto) 0.3 % (0.0-7.0); Hemoglobin 13.7 g/dL (12.2-16.2); Lymphocytes # (auto) 2.4 10 ^3/uL (0.4-5.4); Lymphocytes % (auto) 39.5 % (10.0-50.0); Mean Corpuscular Hemoglobin 27.5 pg (28.0-32.0); Mean Corpuscular Hgb Conc. 31.9 g/dL (32.0-36.0); Mean Corpuscular Volume 86.2 fL (80.0-100.0); Monocytes # (auto) 0.5 10 ^3/uL (0-1.3); Monocytes % (auto) 8.6 % (0.0-12.0); Neutrophils # (auto) 3.1 10 ^3/uL (1.6-8.6); Neutrophils % (auto) 51.1 % (37.0-80.0); Nucleated Red Blood Cells % 0.3 %; Red Blood Cells 4.99 10^6/uL (4.0-5.20); Red Cell Distribution Width 15.5 % (11.8-14.3); White Blood Cell 6.1 10^3/uL (4.4-10.8)
[2023-05-07] MEDS: LEVOTHYROXINE SODIUM 100 MCG TAB PO SCH (06:26)
[2023-05-07] MEDS: EMPAGLIFLOZIN 10 MG TAB PO SCH (06:26)
[2023-05-07 06:30] LABS: Alanine Aminotransferase 13 U/L (7-40); Albumin 4.5 g/dL (3.2-4.8); Alkaline Phosphatase 81 U/L (46-116); Anion Gap 6 (5-15); Aspartate Aminotransferase 21 U/L (13-40); BUN/Creatinine Ratio 11.7 (10.0-20.0); Bilirubin, Total 0.2 mg/dL (0.2-1.0); Blood Urea Nitrogen 15 mg/dL (9-23); Calcium 8.2 mg/dL (8.7-10.4); Carbon Dioxide 24 mmol/L (20-30); Chloride 104 mmol/L (98-107); Glucose 151 mg/dL (74-106); Potassium 4.5 mmol/L (3.5-5.1); Sodium 134 mmol/L (136-145); Total Protein 6.7 g/dL (5.7-8.2)
[2023-05-07] MEDS ORDERED: FUROSEMIDE 40 MG/4 ML VIAL IV SCH (10:00)
[2023-05-07] MEDS: ALLOPURINOL 100 MG TAB PO SCH (10:42)
[2023-05-07] MEDS: METOPROLOL TARTRATE 25 MG TAB PO SCH ×2 (10:42→22:05)
[2023-05-07] MEDS: ENOXAPARIN SOD 40 MG/0.4 ML SYRINGE SC SCH (10:42)
[2023-05-07] MEDS: SPIRONOLACTONE 25 MG TAB PO SCH (10:42)
[2023-05-08] VITALS (8 sets, daily range): BP systolic 100–137; BP diastolic 53–78; PULSE 74–94; RESP 16–20; TEMP 97.5–98; O2SAT 92–100
[2023-05-08] MEDS: ACCU-CHEK COMFORT CURVE STRIP VI SCH ×3 (00:07→11:43)
[2023-05-08] MEDS: InsuLIN REG 1unit/0.01ml Soln (100units/ml) SC SCH ×3 (06:00→12:06)
[2023-05-08 06:45] LABS: Basophils # (auto) 0 10 ^3/uL (0-0.2); Basophils % (auto) 0.5 % (0.0-2.0); Eosinophils # (auto) 0 10 ^3/uL (0-0.8); Eosinophils % (auto) 0.4 % (0.0-7.0); Hematocrit 41.8 % (36.0-46.0); Hemoglobin 13.6 g/dL (12.2-16.2); Lymphocytes # (auto) 2.7 10 ^3/uL (0.4-5.4); Lymphocytes % (auto) 48.5 % (10.0-50.0); Mean Corpuscular Hemoglobin 27.5 pg (28.0-32.0); Mean Corpuscular Hgb Conc. 32.5 g/dL (32.0-36.0); Mean Corpuscular Volume 84.6 fL (80.0-100.0); Monocytes # (auto) 0.5 10 ^3/uL (0-1.3); Monocytes % (auto) 8.5 % (0.0-12.0); Neutrophils # (auto) 2.3 10 ^3/uL (1.6-8.6); Neutrophils % (auto) 42.1 % (37.0-80.0); Nucleated Red Blood Cells % 0.2 %; Red Blood Cells 4.94 10^6/uL (4.0-5.20); Red Cell Distribution Width 15.3 % (11.8-14.3); White Blood Cell 5.5 10^3/uL (4.4-10.8)
[2023-05-08] MEDS: LEVOTHYROXINE SODIUM 100 MCG TAB PO SCH (07:04)
[2023-05-08] MEDS: EMPAGLIFLOZIN 10 MG TAB PO SCH (07:04)
[2023-05-08] MEDS: IPRATROPIUM BROM 0.5 MG/2.5ML INH SOL NEB SCH (07:10)
[2023-05-08] MEDS: ALBUTEROL SULF 2.5 MG/0.5ML(0.5%) NEB SOLN NEB SCH (07:10)
[2023-05-08 07:32] LABS: Alanine Aminotransferase 14 U/L (7-40); Albumin 4.6 g/dL (3.2-4.8); Alkaline Phosphatase 81 U/L (46-116); Anion Gap 7 (5-15); Aspartate Aminotransferase 20 U/L (13-40); BUN/Creatinine Ratio 12.9 (10.0-20.0); Blood Urea Nitrogen 16 mg/dL (9-23); Calcium 8.5 mg/dL (8.7-10.4); Carbon Dioxide 24 mmol/L (20-30); Chloride 100 mmol/L (98-107); Glucose 123 mg/dL (74-106); Sodium 131 mmol/L (136-145)
[2023-05-08 07:33] LABS: Bilirubin, Total 0.3 mg/dL (0.2-1.0); Total Protein 6.9 g/dL (5.7-8.2)
[2023-05-08] MEDS ORDERED: FUROSEMIDE 20 MG/2 ML VIAL IV SCH (10:00)
[2023-05-08] MEDS: ENOXAPARIN SOD 40 MG/0.4 ML SYRINGE SC SCH (10:00)
[2023-05-08] MEDS: ALLOPURINOL 100 MG TAB PO SCH (10:22)
[2023-05-08] MEDS: SPIRONOLACTONE 25 MG TAB PO SCH (10:22)
[2023-05-08] MEDS: METOPROLOL TARTRATE 25 MG TAB PO SCH (10:23)
[2023-05-08] MEDS ORDERED: EMPA1TAB PO (12:13)
== END 2023-05-08 14:20 | disposition home or self-care (01) | DRG 291 ==
LOC: EDUNIT# 09:35 → ER 09:35 → EDBD 09:35 → OVERFLOW 12:43 → CENTRAL 18:46
PROVIDERS: ADMIT Internal Medicine
DX: I13.0 Hypertensive heart and chronic kidney disease with heart failure and stage 1 through stage 4 chronic kidney disease, or unspecified chronic kidney disease (principal); I50.43 Acute on chronic combined systolic (congestive) and diastolic (congestive) heart failure; J96.01 Acute respiratory failure with hypoxia; N18.31 Chronic kidney disease, stage 3a; E03.9 Hypothyroidism, unspecified; E78.5 Hyperlipidemia, unspecified; Z66 Do not resuscitate; M1A.9XX0 Chronic gout, unspecified, without tophus (tophi); Z20.822 Contact with and (suspected) exposure to COVID-19; E11.22 Type 2 diabetes mellitus with diabetic chronic kidney disease
CPT/HCPCS: 36415; 71045; 80053; 80061; 80307; 81001; 82962; 83036; 83880; 84443; 84484; 85025; 85610; 85730; 87426; 87804; 93005; 93306; 94640; 96361; 96374; 96376; G0378; J1815

== ENCOUNTER 2024-05-11 12:47 | Inpatient (IN) | payer MEDICARE, MEDICAID ==
[~2024-05-11] VITALS: Ht 152.4 cm; Wt 70.0 kg
[~2024-05-11 12:47] MED LIST changes: +EMPA1TAB PO
[2024-05-11 13:26] LABS: Basophils # (auto) 0.1 10 ^3/uL (0-0.2); Basophils % (auto) 0.8 % (0.0-2.0); Eosinophils # (auto) 0.2 10 ^3/uL (0-0.8); Eosinophils % (auto) 1.8 % (0.0-7.0); Hematocrit 39.1 % (36.0-46.0); Hemoglobin 12.8 g/dL (12.2-16.2); Lymphocytes # (auto) 2.6 10 ^3/uL (0.4-5.4); Lymphocytes % (auto) 27.5 % (10.0-50.0); Mean Corpuscular Hemoglobin 27.8 pg (28.0-32.0); Mean Corpuscular Hgb Conc. 32.6 g/dL (32.0-36.0); Mean Corpuscular Volume 85.3 fL (80.0-100.0); Monocytes # (auto) 0.7 10 ^3/uL (0-1.3); Neutrophils # (auto) 5.8 10 ^3/uL (1.6-8.6); Neutrophils % (auto) 61.9 % (37.0-80.0); Nucleated Red Blood Cells % 0.1 %; Platelet Count (auto) 349 10^3/uL (140-450); Red Blood Cells 4.58 10^6/uL (4.0-5.20); Red Cell Distribution Width 17.6 % (11.8-14.3); White Blood Cell 9.4 10^3/uL (4.4-10.8)
[2024-05-11] MEDS: NITROGLYCERIN 0.4 MG SL TAB SL ONE (13:30)
[2024-05-11 13:49] LABS: Alanine Aminotransferase 11 U/L (7-40); Albumin 3.9 g/dL (3.2-4.8); Alkaline Phosphatase 82 U/L (46-116); Anion Gap 11 (5-15); Aspartate Aminotransferase 14 U/L (13-40); BUN/Creatinine Ratio 19.5 (10.0-20.0); Bilirubin, Total 0.2 mg/dL (0.2-1.0); Blood Urea Nitrogen 24 mg/dL (9-23); Calcium 9.9 mg/dL (8.7-10.4); Carbon Dioxide 21 mmol/L (20-30); Chloride 105 mmol/L (98-107); Glucose 151 mg/dL (74-106); Potassium 4.3 mmol/L (3.5-5.1); Sodium 137 mmol/L (136-145); Total Protein 6.5 g/dL (5.7-8.2)
[2024-05-11] MEDS ORDERED: HYDROmorphone HCL 2 MG/ML VL/or syr IV PRN (14:30)
[2024-05-11] MEDS ORDERED: ONDANSETRON HCL 4 MG/2 ML VIAL IV PRN (14:30)
[2024-05-11] MEDS ORDERED: ACETAMINOPHEN 325 MG TAB PO PRN (14:30)
[2024-05-11] MEDS ORDERED: HYDROcodone-ACET 5/325MG TAB PO PRN (14:30)
[2024-05-11] MEDS ORDERED: FUROSEMIDE 100 MG/10ML VIAL IV ONE (15:30)
[2024-05-11] MEDS: FUROSEMIDE 40 MG/4 ML VIAL IV ONE (17:00)
[2024-05-11] MEDS ORDERED: DEXTROSE (50%) 50ML SYRG IV PRN (17:15)
[2024-05-11 17:50] VITALS: BP 118/70; PULSE 87; RESP 16; TEMP 97.9; O2SAT 96
[2024-05-11 18:27] VITALS: PULSE 85; RESP 18; O2SAT 96
[2024-05-11 20:00] VITALS: PULSE 95
[2024-05-11] MEDS: FUROSEMIDE 20 MG/2 ML VIAL IV ONE (20:30)
[2024-05-11 20:39] VITALS: BP 104/58; PULSE 89; RESP 16; TEMP 98.9; O2SAT 93
[2024-05-11] MEDS: SODIUM CHLOR 0.9% PF (SALINE LOCK) 10ML VIAL/SYR IV SCH (21:28)
[2024-05-11] MEDS: ACCU-CHEK COMFORT CURVE STRIP VI SCH (21:28)
[2024-05-11] MEDS: InsuLIN REG 1unit/0.01ml Soln (100units/ml) SC SCH (21:43)
[2024-05-12] VITALS (7 sets, daily range): BP systolic 88–124; BP diastolic 44–72; PULSE 78–93; RESP 16–18; TEMP 97.7–98.4; O2SAT 94–97
[2024-05-12 04:51] LABS: Urine Bacteria FEW /hpf (None Seen); Urine Blood Negative /uL (Negative); Urine Clarity Clear (Clear); Urine Color Light-Yellow (Yellow); Urine Protein, UAD Negative (Negative); Urine Specific Gravity 1.007 (1.001-1.035); Urine Urobilinogen Normal (Negative); Urine WBC 17 /hpf (0 - 5); Urine pH 5.5 (5.0-9.0)
[2024-05-12] MEDS: LEVOTHYROXINE SODIUM 50 MCG TAB PO SCH (06:09)
[2024-05-12 07:48] LABS: Basophils # (auto) 0.1 10 ^3/uL (0-0.2); Basophils % (auto) 0.8 % (0.0-2.0); Eosinophils # (auto) 0.1 10 ^3/uL (0-0.8); Hematocrit 39.9 % (36.0-46.0); Hemoglobin 13.1 g/dL (12.2-16.2); Lymphocytes # (auto) 2.6 10 ^3/uL (0.4-5.4); Mean Corpuscular Hemoglobin 27.3 pg (28.0-32.0); Mean Corpuscular Hgb Conc. 32.8 g/dL (32.0-36.0); Mean Corpuscular Volume 83.4 fL (80.0-100.0); Monocytes # (auto) 0.8 10 ^3/uL (0-1.3); Monocytes % (auto) 8.3 % (0.0-12.0); Neutrophils % (auto) 62.9 % (37.0-80.0); Nucleated Red Blood Cells % 0.2 %; Platelet Count (auto) 385 10^3/uL (140-450); Red Blood Cells 4.78 10^6/uL (4.0-5.20); Red Cell Distribution Width 17.5 % (11.8-14.3); White Blood Cell 9.5 10^3/uL (4.4-10.8)
[2024-05-12 08:14] LABS: Anion Gap 11 (5-15); Carbon Dioxide 22 mmol/L (20-30); Chloride 104 mmol/L (98-107); Potassium 3.9 mmol/L (3.5-5.1); Sodium 137 mmol/L (136-145)
[2024-05-12 08:15] LABS: Calcium 9.9 mg/dL (8.7-10.4)
[2024-05-12 08:20] LABS: BUN/Creatinine Ratio 16.9 (10.0-20.0); Blood Urea Nitrogen 20 mg/dL (9-23); Glucose 139 mg/dL (74-106)
[2024-05-12] MEDS: METOPROLOL SUCCINATE XL 50 MG TAB PO SCH (09:26)
[2024-05-12] MEDS: SPIRONOLACTONE 25 MG TAB PO SCH (09:26)
[2024-05-12] MEDS: EMPAGLIFLOZIN 10 MG TAB PO SCH (09:26)
[2024-05-12] MEDS: ALLOPURINOL 100 MG TAB PO SCH (09:26)
[2024-05-12] MEDS: FUROSEMIDE 40 MG/4 ML VIAL IV SCH (10:37)
[2024-05-12] MEDS: CYANOCOBALAMIN (B-12) 1000 MCG/1 ML VIAL IM ONE (15:05)
== END 2024-05-12 15:28 | disposition home or self-care (01) | DRG 291 ==
LOC: EDBD 12:47 → ER 12:47 → OVERFLOW 14:22 → TELE-CENTR 17:39
PROVIDERS: ADMIT Internal Medicine; ATTEND Internal Medicine
DX: I13.0 Hypertensive heart and chronic kidney disease with heart failure and stage 1 through stage 4 chronic kidney disease, or unspecified chronic kidney disease (principal); I50.23 Acute on chronic systolic (congestive) heart failure; E11.22 Type 2 diabetes mellitus with diabetic chronic kidney disease; I48.91 Unspecified atrial fibrillation; N18.30 Chronic kidney disease, stage 3 unspecified; E03.9 Hypothyroidism, unspecified; E78.5 Hyperlipidemia, unspecified; M10.9 Gout, unspecified; Z88.0 Allergy status to penicillin; Z79.899 Other long term (current) drug therapy
CPT/HCPCS: 36415; 71045; 80048; 80053; 81001; 82962; 83036; 83880; 84443; 84484; 85025; 93005; 93306; G0378; J1815

== ENCOUNTER 2025-02-24 16:12 | Inpatient (IN) | payer MEDICARE, MEDICAID ==
[~2025-02-24] VITALS: Ht 160 cm; Wt 61.2 kg
--- NOTE | 2025-02-24 16:28 | ED.PDOC ---
SOB-HPI HPI Comments HPI: Poor Historian. 85-year-old female presents to emergency department by ambulance from home for evaluation of two day history of shortness of breath constant. Patient takes Bumex and metoprolol at home. Patient uses 2 L nasal cannula at home. Patient is at baseline with her supplemental oxygen. Denies any other acute symptoms. Past Medical History: CHF EF 10-15%, gout, diabetes, Past Surgical History: REVIEW OF SYSTEMS: CONSTITUTIONAL: Denies acute: fever, diaphoresis, chills, HEAD: Denies acute: headache, photophobia Eyes: Denies acute: Double vision, vision loss, eye pain, eye discharge. EARS: Denies acute: tinnitus, hearing loss, ear discharge, ear pain, THROAT: Denies acute: sore throat, swelling, difficulty swallowing , pain with swallowing, change in voice. NECK: Denies acute: neck pain, neck swelling, stiff neck. HEART: Denies acute : chest pain, palpitations, LUNGS: Denies acute: wheezing, cough, hemoptysis ABDOMEN: Denies acute: abdominal pain, Nausea, Vomiting, diarrhea, melena , hematemesis, hematochezia SKIN: Denies acute: rash, redness, lesions, itchiness. EXTREMITIES: Denies acute: calf pain, numbness, tingling, weakness, denies pain in extremity. Denies acute: Low back pain. Neuro: Denies acute: focal neurological deficit, motor or sensory focal neurological deficit, tremors, seizure like activity, confusion, dizziness, change in mental status, loss of bowel or bladder function, cauda equina like symptoms. : Denies acute: dysuria, hematuria, flank pain, increase in urinary frequency. PSYCH: Denies acute: hallucination, suicidal ideation, homicidal ideation. FEMALE: Denies acute: abnormal vaginal bleeding, foul odor, unusual discharge. PHYSICAL EXAM: General: ----mild----acute distress, awake and alert. Head: normocephalic, atraumatic. Neck: supple, trachea is midline, no swelling. Throat: Normal phonation. Eyes:, no erythema, no purulent discharge, no proptosis, no icterus. Heart: regular rate, regular rhythm, slight murmur appreciated. Lungs: no apparent respiratory distress, Minimal bilateral wheezing, no rhonchi, no crackles. No stridors Clear to auscultation bilaterally. Abdomen: non tender to palpation, non distended, soft, no guarding, no rebound, + bowel sounds. Neuro: Awake, Alert, oriented to name, self, situation, follows commands GCS=15. Speech is normal. Skin: no petechia, no purpura, no cyanosis, non-pale, not jaundice. Lower extremities: --trace bilateral - Pitting edema no deformity, no focal swelling, no calf TTP. Makes eye contact. moves all four extremities. Face: no apparent facial droop. ED COURSE: DISCLAIMER: This medical document was created using an electronic medical record system with voice recognition software and computerized dictation system. Although this document has been carefully reviewed, there might still be some phonetic and typographical errors. Occasional wrong-word or "sound-alike" substitutions may have occurred due to the inherent limitations of voice recognition software. These areas are purely typographical due to imperfections of the software programs and do not reflect any compromise in the patient's medical care. Please read the chart carefully and recognize, using context, where these substitutions have occurred. Chief Complaint: Shortness of Breath Time Seen by MD: 16:15 Reviewed notes: Nurses Notes Information Source: Patient, Relative X-Ray, Labs, Meds, VS Vital Signs Date Time Temp Pulse Resp B/P (MAP) Pulse Ox O2 Delivery O2 Flow Rate FiO2 02/24/25 17:25 130/69 02/24/25 16:39 18 97 Nasal Cannula* 4 36 02/24/25 16:30 98.7 95 18 121/56 (77) 100 98.7 02/24/25 16:23 98.7 88 22 125/60 (81) 100 98.7 Lab Test 02/24/25 17:53 02/24/25 16:48 Range/Units Troponin I High Sensitivity 22 22 </=34 ng/L White Blood Count 10.1 4.4-10.8 10^3/uL Red Blood Count 4.94 4.0-5.20 10^6/uL Hemoglobin 13.4 12.2-16.2 g/dL Hematocrit 41.6 36.0-46.0 % Mean Corpuscular Volume 84.3 80.0-100.0 fL Mean Corpuscular Hemoglobin 27.2 L 28.0-32.0 pg Mean Corpuscular Hemoglobin Concent 32.3 32.0-36.0 g/dL Red Cell Distribution Width 17.3 H 11.8-14.3 % Platelet Count 277 140-450 10^3/uL Mean Platelet Volume 7.2 6.9-10.8 fL Neutrophils (%) (Auto) 47.6 37.0-80.0 % Lymphocytes (%) (Auto) 43.9 10.0-50.0 % Monocytes (%) (Auto) 7.4 0.0-12.0 % Eosinophils (%) (Auto) 0.7 0.0-7.0 % Basophils (%) (Auto) 0.4 0.0-2.0 % Neutrophils # (Auto) 4.8 1.6-8.6 10 ^3/uL Lymphocytes # (Auto) 4.4 0.4-5.4 10 ^3/uL Monocytes # (Auto) 0.8 0-1.3 10 ^3/uL Eosinophils # (Auto) 0.1 0-0.8 10 ^3/uL Basophils # (Auto) 0 0-0.2 10 ^3/uL Nucleated Red Blood Cells 0.0 % Sodium Level 139 136-145 mmol/L Potassium Level 4.1 3.5-5.1 mmol/L Chloride Level 106 98-107 mmol/L Carbon Dioxide Level 24 20-31 mmol/L Anion Gap 9 5-15 Blood Urea Nitrogen 20 9-23 mg/dL Creatinine 1.45 H 0.550-1.02 mg/dL Glomerular Filtration Rate Calc 35 >90 mL/min BUN/Creatinine Ratio 13.8 10.0-20.0 Serum Glucose 161 H 74-106 mg/dL Calcium Level 10.0 8.7-10.4 mg/dL Total Bilirubin 0.3 0.2-1.0 mg/dL Aspartate Amino Transferase (AST) 19 13-40 U/L Alanine Aminotransferase (ALT) < 9 7-40 U/L Alkaline Phosphatase 86 46-116 U/L B-Type Natriuretic Peptide 1184.33 0-100 pg/mL Total Protein 7.1 5.7-8.2 g/dL Albumin 4.5 3.2-4.8 g/dL Current Medications Medications (Trade) Dose Ordered Sig/Carl Route Start Time Stop Time Status Last Admin Furosemide (Lasix Injection) 40 mg ONCE ONCE IV 02/24/25 16:30 02/24/25 16:31 DC 02/24/25 17:25 Albuterol (Ventolin Medneb) 2.5 mg ONCE ONCE NEB 02/24/25 16:30 02/24/25 16:31 DC 02/24/25 16:39 Ipratropium [place] (Atrovent Medneb) 1 mg ONCE ONCE NEB 02/24/25 16:30 02/24/25 16:31 DC 02/24/25 16:38 Methylprednisolone Sodium Succinate (Solu Medrol) 125 mg ONCE ONCE IV 02/24/25 16:30 02/24/25 16:31 DC 02/24/25 17:25 [place] [id number] Ph: [phone] DIAGNOSTIC IMAGING Diagnostic Imaging Report : [id number] Signed PATIENT: CAMILO LIRIANO ACCT: [id number] UNIT: [id number] : 1940 LOC: ER ROOM / BED: / AGE / SEX: 85 / F ADM STATUS: REG ER SERVICE 18 ORDERING PHYSICIAN: CAROLINA MANCILLA DO PROCEDURE(s): CXRP - CHEST PORTABLE REASON: SOB, H/O CHF ORDER NUMBER(s): [id number], ACCESSION NUMBER(s): [id number] CHEST RADIOGRAPH Indication: SOB, H/O CHF Technique: Single frontal view of the chest was obtained Comparison: None FINDINGS: Lines and Tubes: None Lungs: No focal consolidation. Pleura: No effusion. No pneumothorax. Cardiomediastinal contours: Unremarkable Bones: No acute osseous abnormality. IMPRESSION: 1. No acute cardiopulmonary disease. 2. Right hand and wrist superimposed over the right upper lung field. ATED BY: BRUNILDA FERRARO Jr., DO DICTATED DATE/TIME: 02/24/251702 SIGNED BY: BRUNILDA FERRARO Jr., SIGNED DATE/TIME: 02/24/251702 CC: SEPSIS Sepsis Screen Physician Orders Product Development Technician (02/24/25 ) Chest Portable (02/24/25 16:19) Electrocardigram (02/24/25 16:19) Vital Signs Date Time Temp Pulse Resp B/P (MAP) Pulse Ox O2 Delivery O2 Flow Rate FiO2 02/24/25 17:25 130/69 02/24/25 16:39 18 97 Nasal Cannula* 4 36 02/24/25 16:30 98.7 95 18 121/56 (77) 100 98.7 02/24/25 16:23 98.7 88 22 125/60 (81) 100 98.7 Laboratory Tests Test 02/24/25 16:48 White Blood Count 10.1 10^3/uL (4.4-10.8) Medications Medications Dose Ordered Sig/Carl Route Start Time Stop Time Status Last Admin Dose Admin Albuterol 2.5 mg ONCE ONCE NEB 02/24/25 16:30 02/24/25 16:31 DC 02/24/25 16:39 Furosemide 40 mg ONCE ONCE IV 02/24/25 16:30 02/24/25 16:31 DC 02/24/25 17:25 Ipratropium [place] 1 mg ONCE ONCE NEB 02/24/25 16:30 02/24/25 16:31 DC 02/24/25 16:38 Methylprednisolone Sodium Succinate 125 mg ONCE ONCE IV 02/24/25 16:30 02/24/25 16:31 DC 02/24/25 17:25 Departure 1 Departure Time of Disposition: 16:27 Impression: Primary Impression: CHF exacerbation Disposition: ADMITTED INPATIENT Admit to: Tele Condition: Guarded Discharged With: Self I personally scribed for CAROLINA MANCILLA DO ([email or web address]) on 02/24/25 at 17:46. Electronically submitted by Christopher Mora ([email or web address]). I personally scribed for CAROLINA MANCILLA DO ([email or web address]) on 02/24/25 at 20:21. Electronically submitted by Christopher Mora ([email or web address]). CAROLINA MANCILLA DO Feb 24, 2025 16:28
[2025-02-24] MEDS: IPRATROPIUM BROM 0.5 MG/2.5ML INH SOL NEB ONE (16:38)
[2025-02-24] MEDS: ALBUTEROL SULF 2.5 MG/0.5ML(0.5%) NEB SOLN NEB ONE (16:39)
[2025-02-24 16:58] LABS: Hemoglobin 13.4 g/dL (12.2-16.2)
[2025-02-24 16:59] LABS: Hematocrit 41.6 % (36.0-46.0); Mean Corpuscular Hemoglobin 27.2 pg (28.0-32.0); Mean Corpuscular Volume 84.3 fL (80.0-100.0); Nucleated Red Blood Cells % 0.0 %
--- NOTE | 2025-02-24 17:05 | DVH ---
CHEST RADIOGRAPH Indication: SOB, H/O CHF Technique: Single frontal view of the chest was obtained Comparison: None FINDINGS: Lines and Tubes: None Lungs: No focal consolidation. Pleura: No effusion. No pneumothorax. Cardiomediastinal contours: Unremarkable Bones: No acute osseous abnormality. IMPRESSION: 1. No acute cardiopulmonary disease. 2. Right hand and wrist superimposed over the right upper lung field.
[2025-02-24 17:13] LABS: Alanine Aminotransferase < 9 U/L (7-40); Albumin 4.5 g/dL (3.2-4.8); Alkaline Phosphatase 86 U/L (46-116); Anion Gap 9 (5-15); BUN/Creatinine Ratio 13.8 (10.0-20.0); Bilirubin, Total 0.3 mg/dL (0.2-1.0); Blood Urea Nitrogen 20 mg/dL (9-23); Calcium 10.0 mg/dL (8.7-10.4); Carbon Dioxide 24 mmol/L (20-31); Chloride 106 mmol/L (98-107); Glucose 161 mg/dL (74-106); Potassium 4.1 mmol/L (3.5-5.1); Sodium 139 mmol/L (136-145); Total Protein 7.1 g/dL (5.7-8.2)
[2025-02-24] MEDS: FUROSEMIDE 40 MG/4 ML VIAL IV ONE (17:25)
[2025-02-24] MEDS: methylPREDNISolone SOD SUCC 125 MG/2 ML VL IV ONE (17:25)
--- NOTE | 2025-02-24 18:13 | DVHHP2 ---
History of Present Illness Reason for Visit: Shortness of breaths History of Present Illness 85-year-old female presents for evaluation of shortness for breath. Patient with a history of congestive heart failure reports a two day history of worsening shortness for breath. Patient's daughter reports patient being n oncompliant with her Bumex. Patient uses oxygen intermittently at home. Denies chest pain or palpitations. Past Medical History Congestive heart failure, gout, thyroid, prediabetic Past Surgical History None Family History Noncontributory Smoke: No ALCOHOL: none Drugs: None Lives: with Family Review of Systems Review of Systems Review of systems are currently negative otherwise addressed in HPI. Allergies: Coded Allergies: Penicillins (Verified Allergy, Severe, 07/14/13) Exam Vital Signs Vital Signs Date Time Temp Pulse Resp B/P (MAP) Pulse Ox O2 Delivery O2 Flow Rate FiO2 02/24/25 16:39 18 97 Nasal Cannula* 4 36 02/24/25 16:30 98.7 95 121/56 (77) 98.7 Exam Gen: 85-year-old female in mild distress. Skin: Warm, dry, normal color and texture, no rash. HEENT: Normocephalic atraumatic, mucous membranes moist and pink. Neck: Cervical and supraclavicular nodes normal without enlargement, trachea is midline, thyroid gland is normal without masses. Pulmonary: Bilateral rhonchi Cardiac: Regular rate and rhythm. No murmur Abdomen: Soft, nontender, nondistended, bowel sounds present all 4 quadrants, no guarding, no rigidity, no organomegaly. Extremities: No cyanosis, clubbing, no edema Neuro: Cranial nerves II through XII grossly intact, normal affect and speech, no focal motor deficits. Labs/Xrays ORDERING PHYSICIAN: DELLA KENNY MD PROCEDURE(s): ECIDC - ECHO 2D MODE CARDIAC DOP REASON: CHF ORDER NUMBER(s): [id number], ACCESSION NUMBER(s): [id number] APPROVED REPORT EXAM: Two-dimensional and M-mode echocardiogram with Doppler and color Doppler. Blood Pressure: 105/68 mmHg INDICATION Heart Failure RISK FACTORS Height: 5', Weight: 154 DIMENSIONS LVDd 6.5 (3.8-5.7cm) LA (2D) 3.6 (1.9-4.0cm) Aortic Root (2.0- 3.7cm) LVDs 6.2 (2.5-4.0cm) LA (MM) (1.9-4.0cm) Aortic Cusp Exc (1.5- 2.0cm) EF (%) 11.0 (55-70%) Rt. Atrium 4.0 (1.9-4.0cm) Asc. Aorta cm IVSd 1.0 (0.7-1.1cm) RV (D) (1.8-2.4cm) Mitral Valve Mitral Mitral Stenosis A wave m/s MV Peak GR. 102mmHg E/A ratio 0.0 2D MVA cm2 Aortic Valve Aortic Valve Aortic Stenosis V1 0.48m/s AO Mean GR. 3mmHg V2 1.05m/s AO Peak GR. 4mmHg LVOT Diameter 2.0 (1.8-2.4cm) Doppler YONI 1.44cm2 AI P 1/2 Time 272.23ms Tricuspid Valve TR Velocity 2.76m/s RVSP 30mmHg Other Information Quality : Technically Limited Rhythm : Technically limited study due to body habitus. Conclusion Severely dilated left ventricle. Severely reduced left ventricular systolic function estimated ejection fraction of 10-15%. There is global wall hypokinesia. There is grade 2 diastolic dysfunction. Moderately reduced right ventricular systolic function. Mildly elevated right ventricular systolic pressure at 30 mm of mercury. Moderately dilated right and left atria. Severe mitral valve regurgitation. Knke-ez-mkaespre aortic valve regurgitation. Mild tricuspid valve regurgitation. The pulmonary valve is grossly normal. No pericardial. New SIGNED BY: MARITZA PRYOR MD ORDERING PHYSICIAN: CAROLINA MANCILLA DO PROCEDURE(s): CXRP - CHEST PORTABLE REASON: SOB, H/O CHF ORDER NUMBER(s): [id number], ACCESSION NUMBER(s): [id number] CHEST RADIOGRAPH Indication: SOB, H/O CHF Technique: Single frontal view of the chest was obtained Comparison: None FINDINGS: Lines and Tubes: None Lungs: No focal consolidation. Pleura: No effusion. No pneumothorax. Cardiomediastinal contours: Unremarkable Bones: No acute osseous abnormality. IMPRESSION: 1. No acute cardiopulmonary disease. 2. Right hand and wrist superimposed over the right upper lung field. Labs Test 02/24/25 17:53 02/24/25 16:48 Range/Units White Blood Count 10.1 4.4-10.8 10^3/uL Red Blood Count 4.94 4.0-5.20 10^6/uL Hemoglobin 13.4 12.2-16.2 g/dL Hematocrit 41.6 36.0-46.0 % Mean Corpuscular Volume 84.3 80.0-100.0 fL Mean Corpuscular Hemoglobin 27.2 L 28.0-32.0 pg Mean Corpuscular Hemoglobin Concent 32.3 32.0-36.0 g/dL Red Cell Distribution Width 17.3 H 11.8-14.3 % Platelet Count 277 140-450 10^3/uL Mean Platelet Volume 7.2 6.9-10.8 fL Neutrophils (%) (Auto) 47.6 37.0-80.0 % Lymphocytes (%) (Auto) 43.9 10.0-50.0 % Monocytes (%) (Auto) 7.4 0.0-12.0 % Eosinophils (%) (Auto) 0.7 0.0-7.0 % Basophils (%) (Auto) 0.4 0.0-2.0 % Neutrophils # (Auto) 4.8 1.6-8.6 10 ^3/uL Lymphocytes # (Auto) 4.4 0.4-5.4 10 ^3/uL Monocytes # (Auto) 0.8 0-1.3 10 ^3/uL Eosinophils # (Auto) 0.1 0-0.8 10 ^3/uL Basophils # (Auto) 0 0-0.2 10 ^3/uL Nucleated Red Blood Cells 0.0 % Sodium Level 139 136-145 mmol/L Potassium Level 4.1 3.5-5.1 mmol/L Chloride Level 106 98-107 mmol/L Carbon Dioxide Level 24 20-31 mmol/L Anion Gap 9 5-15 Blood Urea Nitrogen 20 9-23 mg/dL Creatinine 1.45 H 0.550-1.02 mg/dL Glomerular Filtration Rate Calc 35 >90 mL/min BUN/Creatinine Ratio 13.8 10.0-20.0 Serum Glucose 161 H 74-106 mg/dL Calcium Level 10.0 8.7-10.4 mg/dL Total Bilirubin 0.3 0.2-1.0 mg/dL Aspartate Amino Transferase (AST) 19 13-40 U/L Alanine Aminotransferase (ALT) < 9 7-40 U/L Alkaline Phosphatase 86 46-116 U/L B-Type Natriuretic Peptide 1184.33 0-100 pg/mL Total Protein 7.1 5.7-8.2 g/dL Albumin 4.5 3.2-4.8 g/dL SEPSIS Sepsis Screen Date sepsis recognized/suspect: Feb 24, 2025 Time Sepsis recognized/suspect: 1614 Recent Procedure: No On Antibiotic Therapy: No Respiratory Rate >20: Yes Heart Rate >90: No Temp<36 C (96.8 F) or >38.3 C: No SBP <90 or MAP <65 mmHG: No New Acute Mental Status Change: No Is the patient on CPAP, BIPAP,: No Physician Orders City Planning Aide (02/24/25 ) Urinalysis (02/24/25 16:19) Chest Portable (02/24/25 16:19) Electrocardigram (02/24/25 16:19) Troponin-I Hs (02/24/25 17:19) Troponin-I Hs (02/24/25 19:19) Vital Signs Date Time Temp Pulse Resp B/P (MAP) Pulse Ox O2 Delivery O2 Flow Rate FiO2 02/24/25 16:39 18 97 Nasal Cannula* 4 36 02/24/25 16:30 98.7 95 18 121/56 (77) 100 98.7 02/24/25 16:23 98.7 88 22 125/60 (81) 100 98.7 Laboratory Tests Test 02/24/25 16:48 White Blood Count 10.1 10^3/uL (4.4-10.8) Medications Medications Dose Ordered Sig/Carl Route Start Time Stop Time Status Last Admin Dose Admin Albuterol 2.5 mg ONCE ONCE NEB 02/24/25 16:30 02/24/25 16:31 DC 02/24/25 16:39 2.5 MG Ipratropium [place] 1 mg ONCE ONCE NEB 02/24/25 16:30 02/24/25 16:31 DC 02/24/25 16:38 1 MG Assessment/Plan Assessment/Plan Assessment Acute on chronic congestive heart failure Diabetes mellitus Thyroid Plan Admit the patient to Med surge to the hospitalist IV Lasix Med nebs Resume home medications Continue treatment per orders. Plan discussed with: Patient Date of Service: Feb 24, 2025 Billing Provider: DELLA EAST Common Visit Codes: [id number] INP/OBS CARE (HIGH) DELLA EAST Feb 24, 2025 18:13
[2025-02-24] MEDS ORDERED: ALBUTEROL SULF 2.5 MG/0.5ML(0.5%) NEB SOLN NEB PRN (18:15)
[2025-02-24] MEDS ORDERED: ONDANSETRON HCL 4 MG/2 ML VIAL IV PRN (18:15)
[2025-02-24 19:11] VITALS: O2SAT 97
[2025-02-24 19:12] VITALS: BP 130/69; PULSE 95; RESP 18; TEMP 98.7; O2SAT 97
[2025-02-24 19:43] LABS: Urine Protein, UAD Negative (Negative)
[2025-02-24 20:15] VITALS: PULSE 103; RESP 22; O2SAT 99
[2025-02-24] MEDS: ACETAMINOPHEN 325 MG TAB PO PRN (20:36)
[2025-02-24 21:00] VITALS: BP 111/54; PULSE 95; RESP 19; TEMP 98.2; O2SAT 97
[2025-02-24] MEDS ORDERED: DOCU-265 PO (22:18)
[2025-02-24] MEDS ORDERED: SPIR25TA8 PO (22:18)
[2025-02-24] MEDS ORDERED: LEVO75TA6 PO (22:18)
[2025-02-24] MEDS ORDERED: ALLO100T PO (22:18)
[2025-02-24] MEDS ORDERED: METO25TA93 PO (22:18)
[2025-02-24] MEDS ORDERED: PANT40T PO (23:30)
[2025-02-25] VITALS (11 sets, daily range): BP systolic 104–129; BP diastolic 55–97; PULSE 66–92; RESP 18–20; TEMP 96.4–98; O2SAT 96–100
[2025-02-25] MEDS: LEVOTHYROXINE SODIUM 25 MCG TAB PO SCH (05:27)
[2025-02-25] MEDS: FUROSEMIDE 20 MG/2 ML VIAL IV SCH (05:27)
[2025-02-25] MEDS: LEVOTHYROXINE SODIUM 100 MCG TAB PO SCH (05:27)
[2025-02-25 06:13] LABS: Chloride 100 mmol/L (98-107); Potassium 4.4 mmol/L (3.5-5.1)
[2025-02-25 06:14] LABS: Anion Gap 11 (5-15); Calcium 8.9 mg/dL (8.7-10.4); Carbon Dioxide 22 mmol/L (20-31)
[2025-02-25 06:15] LABS: Sodium 133 mmol/L (136-145)
[2025-02-25 06:19] LABS: BUN/Creatinine Ratio 16.1 (10.0-20.0); Blood Urea Nitrogen 22 mg/dL (9-23)
[2025-02-25 06:39] LABS: Glucose 332 mg/dL (74-106)
[2025-02-25] MEDS: EMPAGLIFLOZIN 10 MG TAB PO SCH (09:12)
[2025-02-25] MEDS: ALLOPURINOL 100 MG TAB PO SCH (09:12)
[2025-02-25] MEDS: METOPROLOL SUCCINATE XL 50 MG TAB PO SCH (09:13)
--- NOTE | 2025-02-25 13:34 | DVHPN2 ---
Subjective Patient continues to have some shortness of breath Reviewed: Care Plan, H&P, Labs, Medications Changes from previous H/P or p: No Changes General: Per HPI Objective Vitals Vital Signs Date Time Temp Pulse Resp B/P (MAP) Pulse Ox O2 Delivery O2 Flow Rate FiO2 02/25/25 09:13 91 129/97 02/25/25 08:31 96.4 19 100 96.4 02/25/25 07:30 Nasal Cannula* 2 28 Intake/Output Intake and Output 02/25/25 07:00 Intake Total 400 ml Output Total 750 ml Balance -350 ml Intake Oral 400 ml Output Urine Total 750 ml General Appearance: Alert, Oriented X3, Cooperative, mild distress HEENT: Atraumatic, PERRLA Lungs: Other (Inspiratory and expiratory wheezing, more prominent in left upper lobe) Cardiovascular: Normal S1, Normal S2 Abdomen: Normal bowel sounds, Soft, No tenderness, No hepatospenomegaly Musculoskeletal: Normal sensory function, Normal motor function Extremities: No clubbing, No cyanosis Neuro: Normal gait, Normal speech Skin: Dry, Intact Psych/Mental Status: Mental status NL, Mood NL Medications Current Medications Medications Dose Ordered Sig/Carl Route Start Time Stop Time Status Last Admin Dose Admin Furosemide 20 mg BIDD IV 02/25/25 06:00 02/25/25 05:27 20 MG Metoprolol Succinate 25 mg DAILY PO 02/25/25 10:00 02/25/25 09:13 25 MG Allopurinol 100 mg DAILY PO 02/25/25 10:00 02/25/25 09:12 100 MG Empaglifozin 10 mg DAILY PO 02/25/25 10:00 02/25/25 09:12 10 MG Levothyroxine Sodium 100 mcg QAM@0600 PO 02/25/25 06:00 02/25/25 05:27 100 MCG Ondansetron HCl 4 mg Q4HP PRN IV 02/24/25 18:15 Acetaminophen 650 mg Q6HP PRN PO 02/24/25 18:15 02/25/25 09:12 650 MG Levothyroxine Sodium 25 mcg QAM@0600 PO 02/25/25 06:00 02/25/25 05:27 25 MCG Levalbuterol HCl 0.625 mg Q6HR NEB 02/25/25 18:00 UNV Ipratropium [place] 0.5 mg Q6HR NEB 02/25/25 18:00 UNV Laboratory Results Laboratory Tests 02/24/25 16:48 02/25/25 04:51 Chemistry Test 02/24/25 16:48 02/25/25 04:51 Albumin 4.5 g/dL (3.2-4.8) Calcium Level 10.0 mg/dL (8.7-10.4) 8.9 mg/dL (8.7-10.4) Total Protein 7.1 g/dL (5.7-8.2) Cardiac Markers Test 02/24/25 16:48 B-Type Natriuretic Peptide 1184.33 pg/mL (0-100) LFT Test 02/24/25 16:48 Alanine Aminotransferase (ALT) < 9 U/L (7-40) Alkaline Phosphatase 86 U/L (46-116) Aspartate Amino Transferase (AST) 19 U/L (13-40) Total Bilirubin 0.3 mg/dL (0.2-1.0) Urinalysis Test 02/24/25 19:10 Urine Color Light-yellow (Yellow) Urine Clarity Turbid (Clear) H Urine pH 5.5 (5.0-9.0) Urine Specific [place] 1.013 (1.001-1.035) Urine Protein Negative (Negative) Urine Ketones Negative (Negative) Urine Blood Negative /uL (Negative) Urine Nitrite 2+ (Negative) H Urine Bilirubin Negative (Negative) Urine Urobilinogen Normal mg/dL (Negative) Urine Leukocyte Esterase 3+ /uL (Negative) Urine RBC 3 /hpf (0 - 4) Urine Microscopic WBC 94 /HPF (0-5) H Urine Squamous Epithelial Cells Few /hpf (<5) Urine Bacteria Many /hpf (None Seen) H Urine Mucus Few (None Seen) Urine Glucose Trace mg/dL (Normal) Labs and/or images reviewed: Labs reviewed by me, Image(s) reviewed by me Assessment/Plan Assessment/Plan Impression: -acute hypoxic respiratory failure -acute on chronic decompensated systolic heart failure -UTI -? Asthma -hypothyroidism -medication noncompliance -CKD stage IIIB Plan: -O2 supplementation to keep saturation greater than 93% -start bronchodilators scheduled, q.6 hours and Xopenex and ipratropium -start antibiotic therapy with p.o. ciprofloxacin -continue IV diuresis, Jardiance, metoprolol tartrate -hold JUSTINE inhibitor given -continue thyroid supplementation -repeat labs and chest x-ray in a.m. Total time spent with patient discussing and formulating plan of care: 35 minutes. This medical document was created using an electronic medical record system with [employer] dictation system. Although this document has been carefully reviewed, there may still be some phonetic and typographical errors. These areas are purely typographical due to imperfections of the software programs, and do not reflect any compromise in the patient's medical care. Plan discussed with: Patient, Other (RN) My Orders Orders - KRANTHI INMAN NP Procedure Category Date Status Time Levalbuterol Hcl PHA 02/25/25 Logged (Xopenex Medneb) 18:00 Ipratropium Medneb PHA 02/25/25 Logged (Atrovent Medneb) 18:00 Ciprofloxacin Tablet PHA 02/25/25 Transmitted (Cipro Tablet) 22:00 D/C Laurence DOCKERY 02/25/25 In Process 13:22 Date of Service: Feb 25, 2025 Billing Provider: KRANTHI INMAN NP Common Visit Codes: [id number] INP/OBS CARE(HIGH) KRANTHI INMAN NP Feb 25, 2025 13:34
[2025-02-25] MEDS: LEVALBUTEROL HCL 1.25 MG/3 ML NEB NEB SCH (16:31)
[2025-02-25] MEDS: IPRATROPIUM BROM 0.5 MG/2.5ML INH SOL NEB SCH (16:31)
[2025-02-25] MEDS ORDERED: ALBUTEROL SULF 2.5 MG/0.5ML(0.5%) NEB SOLN NEB PRN (20:00)
[2025-02-25] MEDS: CIPROFLOXACIN HCL 500 MG TAB PO SCH (21:06)
[2025-02-26] VITALS (15 sets, daily range): BP systolic 101–127; BP diastolic 66–81; PULSE 76–96; RESP 16–20; TEMP 97.3–98.1; O2SAT 94–100
[2025-02-26 06:11] LABS: Anion Gap 11 (5-15); Calcium 9.2 mg/dL (8.7-10.4); Carbon Dioxide 27 mmol/L (20-31); Chloride 100 mmol/L (98-107); Potassium 3.8 mmol/L (3.5-5.1); Sodium 138 mmol/L (136-145)
[2025-02-26 06:17] LABS: BUN/Creatinine Ratio 21.3 (10.0-20.0); Blood Urea Nitrogen 29 mg/dL (9-23); Glucose 127 mg/dL (74-106)
--- NOTE | 2025-02-26 08:04 | DVH ---
CHEST RADIOGRAPH Indication: chf Technique: Single frontal view of the chest was obtained COMPARISON: None FINDINGS: The cardiac silhouette is enlarged. The lungs demonstrate bilateral patchy airspace opacities. The pu lmonary vasculature is prominent. There is no pleural effusion. There is no pneumothorax. IMPRESSION: Cardiomegaly with pulmonary vascular congestion and bilateral patchy airspace opacities.
[2025-02-26] MEDS: ALBUTEROL SULF 2.5 MG/0.5ML(0.5%) NEB SOLN NEB PRN (11:08)
--- NOTE | 2025-02-26 11:47 | DVHPN2 ---
Subjective Patient continues to have some shortness of breath Reviewed: Care Plan, H&P, Labs, Medications Changes from previous H/P or p: No Changes General: Per HPI Objective Vitals Vital Signs Date Time Temp Pulse Resp B/P (MAP) Pulse Ox O2 Delivery O2 Flow Rate FiO2 02/26/25 11:17 96 18 100 02/26/25 11:08 Nasal Cannula 2.0 02/26/25 11:08 28 02/26/25 08:40 97.3 109/81 (90) 97.3 Intake/Output Intake and Output 02/26/25 07:00 Intake Total 250 ml Output Total 1000 ml Balance -750 ml Intake Oral 250 ml Output Urine Total 1000 ml # Voids 4 # Bowel Movements 1 General Appearance: Alert, Oriented X3, Cooperative, mild distress HEENT: Atraumatic, PERRLA Lungs: Other (Persistent inspiratory and expiratory wheezing, more prominent in left lobes) Cardiovascular: Normal S1, Normal S2 Abdomen: Normal bowel sounds, Soft, No tenderness, No hepatospenomegaly Musculoskeletal: Normal sensory function, Normal motor function Extremities: No clubbing, No cyanosis Neuro: Normal gait, Normal speech Skin: Dry, Intact Psych/Mental Status: Mental status NL, Mood NL Medications Current Medications Medications Dose Ordered Sig/Carl Route Start Time Stop Time Status Last Admin Dose Admin Furosemide 20 mg BIDD IV 02/25/25 06:00 02/26/25 05:40 20 MG Metoprolol Succinate 25 mg DAILY PO 02/25/25 10:00 02/25/25 09:13 25 MG Allopurinol 100 mg DAILY PO 02/25/25 10:00 02/25/25 09:12 100 MG Empaglifozin 10 mg DAILY PO 02/25/25 10:00 02/25/25 09:12 10 MG Levothyroxine Sodium 100 mcg QAM@0600 PO 02/25/25 06:00 02/26/25 05:40 100 MCG Ondansetron HCl 4 mg Q4HP PRN IV 02/24/25 18:15 Acetaminophen 650 mg Q6HP PRN PO 02/24/25 18:15 02/25/25 16:13 650 MG Levothyroxine Sodium 25 mcg QAM@0600 PO 02/25/25 06:00 02/26/25 05:40 25 MCG Levalbuterol HCl 0.625 mg Q6HR NEB 02/25/25 18:00 02/26/25 05:36 0.625 MG Ipratropium [place] 0.5 mg Q6HR NEB 02/25/25 18:00 02/26/25 11:08 0.5 MG Albuterol 1.25 mg Q4HPRN PRN NEB 02/25/25 21:00 02/26/25 11:08 1.25 MG Levofloxacin/ Dextrose 100 ml @ 100 mls/hr DAILY IV 02/27/25 10:00 UNV Meropenem 50 ml @ 17 mls/hr Q8HR IV 02/26/25 14:00 UNV Laboratory Results Laboratory Tests 02/24/25 16:48 02/26/25 05:00 Chemistry Test 02/26/25 05:00 Calcium Level 9.2 mg/dL (8.7-10.4) HgA1c, TSH Test 02/26/25 05:00 Thyroid Stimulating Hormone (TSH) 5.60 uIU/mL (0.55-4.78) H Urinalysis Test 02/24/25 19:10 Urine Color Light-yellow (Yellow) Urine Clarity Turbid (Clear) H Urine pH 5.5 (5.0-9.0) Urine Specific [place] 1.013 (1.001-1.035) Urine Protein Negative (Negative) Urine Ketones Negative (Negative) Urine Blood Negative /uL (Negative) Urine Nitrite 2+ (Negative) H Urine Bilirubin Negative (Negative) Urine Urobilinogen Normal mg/dL (Negative) Urine Leukocyte Esterase 3+ /uL (Negative) Urine RBC 3 /hpf (0 - 4) Urine Microscopic WBC 94 /HPF (0-5) H Urine Squamous Epithelial Cells Few /hpf (<5) Urine Bacteria Many /hpf (None Seen) H Urine Mucus Few (None Seen) Urine Glucose Trace mg/dL (Normal) Labs and/or images reviewed: Labs reviewed by me, Image(s) reviewed by me Assessment/Plan Assessment/Plan Impression: -acute hypoxic respiratory failure -acute on chronic decompensated systolic heart failure -UTI -? Asthma -hypothyroidism -medication noncompliance -CKD stage IIIB Plan: Events: Patient continues to have wheezing despite schedule bronchodilators, IV diuresis. Discussion made with Dr. Barahona regarding treatment plan of patient. Reported that patient has frequent UTIs. No history of COPD that is documented. -CT scan of the chest -change bronchodilators to q.4 hours with Xopenex and ipratropium. Add Mucomyst to every other treatment -pulse dose of IV Solu-Medrol -change antibiotic therapy to Meropenem to cover for possible ESBL as were as questionable pneumonia -O2 supplementation to keep saturation greater than 93% -urine culture -continue Lasix, add metolazone -hold JUSTINE inhibitor and stop Jardiance given UTI -continue thyroid supplementation -repeat labs and chest x-ray in a.m. Total time spent with patient discussing and formulating plan of care: 35 minutes. This medical document was created using an electronic medical record system with [employer] dictation system. Although this document has been carefully reviewed, there may still be some phonetic and typographical errors. These areas are purely typographical due to imperfections of the software programs, and do not reflect any compromise in the patient's medical care. Plan discussed with: Patient, Other (RN) My Orders Orders - KRANHTI INMAN [employer] Procedure Category Date Status Time Levalbuterol Hcl PHA 02/25/25 In Process (Xopenex Medneb) 18:00 Ipratropium Medneb PHA 02/25/25 In Process (Atrovent Medneb) 18:00 D/C Dang SARKIS 02/25/25 In Process 13:22 Chest Portable XY 02/26/25 Resulted 04:00 Levofloxacin 500mg PHA 02/27/25 Logged (Levaquin 500mg/ 100m 10:00 Transfer Orders XFER 02/26/25 Transmitted 11:33 Continous Pulse SARKIS 02/26/25 In Process Oximetry 11:[address] 02/26/25 Logged 11:33 Methylprednisolone PHA 02/26/25 Logged Sod Succ (Solu Medrol 11:45 Budesonide PHA 02/26/25 Logged (Inhalation) 22:00 Acetylcysteine PHA 02/26/25 Logged Inhalation 10% 12:00 B-Type Natriuretic LAB 02/26/25 Logged Peptide 11:33 Erythrocyte LAB 02/26/25 Logged Sedimentation Rate 11:33 C-Reactive Protein LAB 02/26/25 Logged 11:33 Urine Bacterial MEGHAN 02/26/25 Logged Culture 11:33 Meropenem 1gm Ivpb PHA 02/26/25 Logged (Merrem 1gm/ Ns) 14:00 Basic Metabolic Panel LAB 02/27/25 Verified 05:00 Basic Metabolic Panel LAB 02/28/25 Verified 05:00 Basic Metabolic Panel LAB 03/01/25 Verified 05:00 Magnesium Sulfate PHA 02/26/25 Logged 1gm/100ml 11:45 Complete Blood Count LAB 02/27/25 Verified 05:00 Complete Blood Count LAB 02/28/25 Verified 05:00 Complete Blood Count LAB 03/01/25 Verified 05:00 Metolazone (Zaroxolyn) PHA 02/27/25 Logged 10:00 Date of Service: Feb 26, 2025 Billing Provider: KRANTHI INMAN NP Common Visit Codes: [id number] INP/OBS CARE(HIGH) KRANTHI INMAN NP Feb 26, 2025 11:47
[2025-02-26] MEDS ORDERED: ACETYLCYSTEINE 10 %(100MG/ML) SOL 4ML NEB SCH (12:00)
[2025-02-26] MEDS: methylPREDNISolone SOD SUCC 125 MG/2 ML VL IV ONE (12:45)
[2025-02-26] MEDS: MAGNESIUM SULFATE 1GM/100ML 100 ML IV ONE (12:45)
[2025-02-26] MEDS: MEROPENEM 1GM IVPB 50 ML IV SCH (13:52)
--- NOTE | 2025-02-26 16:38 | DVH ---
Procedure: CT CHEST WITHOUT CONTRAST Study Date and Requested Time: 02/26 12:29 PM History: Chf, pna Comparison: CT CHEST WITHOUT CONTRAST on DOS: 02/21/23, CHEST WITHOUT CONTRAST on DOS: 11/15/21, CX2CT o n DOS: 11/15/21 Dose: CTDI: 7.7 mGy DLP: 238.41 mGycm Technique: Multiplanar images obtained through the chest without contrast. Findings: Thyroid gland is unremarkable. Moderate cardiomegaly. No evidence of aortic aneurysm. Mild atherosclerotic calcification of the aort a. Prominence of the pulmonary trunk measuring up to 35 mm. Mediastinal lymphadenopathy measuring up to 1.2 cm. No pneumothorax or pleural effusion. Scattered bilateral lung atelectasis with ground-glass opacitie s of the hkizm-pcrpzic-bvyj-left lower lobes. 5 mm Left upper lobe solid nodule Status post cholecyst ectomy. Small hiatal hernia. Partial view of the upper abdomen is unremarkable. Left asymmetric breast tissue. Otherwise, soft tissues are unremarkable. No evidence of acute osseou s abnormalities. Old fracture deformity of the sternomanubrial joint. Impression: Moderate cardiomegaly. Prominence of the pulmonary trunk up to 35 mm. Correlate for pulmonary arteri al hypertension. Scattered bilateral lung atelectasis with patchy tcfox-snievac-fbtf-left lower lobe ground-glass opac ities which may represent atelectasis/pneumonia. Mediastinal lymphadenopathy measuring up to 1.2 cm which may be reactive. 5 mm left upper lobe solid nodule. Recommend follow-up per Fleischner criteria.
[2025-02-26] MEDS ORDERED: DOCUSATE SOD 100 MG CAP PO PRN (17:15)
[2025-02-26] MEDS: BUDESONIDE (INHALATION) 0.5 MG/2 ML NEB NEB SCH (18:15)
[2025-02-26] MEDS: ACETYLCYSTEINE 10 %(100MG/ML) SOL 4ML NEB SCH (18:15)
[2025-02-27] VITALS (16 sets, daily range): BP systolic 102–124; BP diastolic 53–76; PULSE 65–87; RESP 11–20; TEMP 97.2–98.4; O2SAT 92–100
[2025-02-27 06:55] LABS: Chloride 99 mmol/L (98-107); Potassium 4.3 mmol/L (3.5-5.1); Sodium 136 mmol/L (136-145)
[2025-02-27 06:56] LABS: Anion Gap 8 (5-15); Calcium 9.5 mg/dL (8.7-10.4); Carbon Dioxide 29 mmol/L (20-31); Hematocrit 39.3 % (36.0-46.0); Hemoglobin 12.8 g/dL (12.2-16.2); Mean Corpuscular Hemoglobin 27.1 pg (28.0-32.0); Mean Corpuscular Volume 83.1 fL (80.0-100.0); Nucleated Red Blood Cells % 0.0 %
[2025-02-27 07:01] LABS: BUN/Creatinine Ratio 22.7 (10.0-20.0)
[2025-02-27 07:13] LABS: Blood Urea Nitrogen 34 mg/dL (9-23); Glucose 224 mg/dL (74-106)
--- NOTE | 2025-02-27 12:17 | DVHPN2 ---
Subjective Shortness of breath has improved Reviewed: Care Plan, H&P, Labs, Medications Changes from previous H/P or p: No Changes General: Per HPI Objective Vitals Vital Signs Date Time Temp Pulse Resp B/P (MAP) Pulse Ox O2 Delivery O2 Flow Rate FiO2 02/27/25 11:40 75 18 96 02/27/25 11:34 Nasal Cannula 4.0 02/27/25 11:34 36 02/27/25 08:26 103/53 02/27/25 05:00 98.4 98.4 Intake/Output Intake and Output 02/27/25 07:00 Intake Total 1651 ml Balance 1651 ml Intake Oral 1350 ml IV Total 301 ml # Voids 5 # Bowel Movements 2 General Appearance: Alert, Oriented X3, Cooperative, mild distress HEENT: Atraumatic, PERRLA Lungs: Other (Improve inspiratory and expiratory wheezing) Cardiovascular: Normal S1, Normal S2 Abdomen: Normal bowel sounds, Soft, No tenderness, No hepatospenomegaly Musculoskeletal: Normal sensory function, Normal motor function Extremities: No clubbing, No cyanosis Neuro: Normal gait, Normal speech Skin: Dry, Intact Psych/Mental Status: Mental status NL, Mood NL Medications Current Medications Medications Dose Ordered Sig/Carl Route Start Time Stop Time Status Last Admin Dose Admin Furosemide 20 mg BIDD IV 02/25/25 06:00 02/27/25 05:55 20 MG Metoprolol Succinate 25 mg DAILY PO 02/25/25 10:00 02/27/25 08:26 25 MG Allopurinol 100 mg DAILY PO 02/25/25 10:00 02/27/25 08:25 100 MG Empaglifozin 10 mg DAILY PO 02/25/25 10:00 02/27/25 08:24 10 MG Levothyroxine Sodium 100 mcg QAM@0600 PO 02/25/25 06:00 02/27/25 05:55 100 MCG Ondansetron HCl 4 mg Q4HP PRN IV 02/24/25 18:15 Acetaminophen 650 mg Q6HP PRN PO 02/24/25 18:15 02/26/25 17:34 650 MG Levothyroxine Sodium 25 mcg QAM@0600 PO 02/25/25 06:00 02/27/25 05:56 25 MCG Levalbuterol HCl 0.625 mg Q6HR NEB 02/25/25 18:00 02/27/25 11:34 0.625 MG Ipratropium [place] 0.5 mg Q6HR NEB 02/25/25 18:00 02/27/25 11:34 0.5 MG Albuterol 1.25 mg Q4HPRN PRN NEB 02/25/25 21:00 02/26/25 11:08 1.25 MG Budesonide 0.5 mg BID NEB 02/26/25 22:00 02/27/25 06:45 0.5 MG Meropenem 50 ml @ 17 mls/hr Q12HR IV 02/26/25 14:00 02/27/25 09:47 17 MLS/HR Metolazone 5 mg DAILY PO 02/27/25 10:00 02/27/25 08:24 5 MG Levofloxacin 50 ml @ 50 mls/hr DAILY IV 02/27/25 10:00 02/27/25 08:23 50 MLS/HR Docusate Sodium 100 mg BIDPRN PRN PO 02/26/25 17:15 Laboratory Results Laboratory Tests 02/27/25 04:50 Chemistry Test 02/27/25 04:50 Calcium Level 9.5 mg/dL (8.7-10.4) Urinalysis Test 02/24/25 19:10 Urine Color Light-yellow (Yellow) Urine Clarity Turbid (Clear) H Urine pH 5.5 (5.0-9.0) Urine Specific [place] 1.013 (1.001-1.035) Urine Protein Negative (Negative) Urine Ketones Negative (Negative) Urine Blood Negative /uL (Negative) Urine Nitrite 2+ (Negative) H Urine Bilirubin Negative (Negative) Urine Urobilinogen Normal mg/dL (Negative) Urine Leukocyte Esterase 3+ /uL (Negative) Urine RBC 3 /hpf (0 - 4) Urine Microscopic WBC 94 /HPF (0-5) H Urine Squamous Epithelial Cells Few /hpf (<5) Urine Bacteria Many /hpf (None Seen) H Urine Mucus Few (None Seen) Urine Glucose Trace mg/dL (Normal) Labs and/or images reviewed: Labs reviewed by me, Image(s) reviewed by me Assessment/Plan Assessment/Plan Impression: -acute hypoxic respiratory failure -acute on chronic decompensated systolic heart failure -UTI -? Asthma -hypothyroidism -medication noncompliance -CKD stage IIIB Plan: Events: CT of the chest reviewed. Discussed findings with patient's family. Continues to have inspiratory and expiratory wheezing, but reports her respiratory status has improved. -continue bronchodilators q.4 hours with Xopenex and ipratropium, Mucomyst every other treatment, Pulmicort b.i.d. -low-dose IV Solu-Medrol 20 mg b.i.d. -continue Meropenem -O2 supplementation to keep saturation greater than 93% -urine culture: Pending -to once a day, continue Zaroxolyn -continue thyroid supplementation -repeat labs and chest x-ray in a.m. Total time spent with patient discussing and formulating plan of care: 35 minutes. This medical document was created using an electronic medical record system with [employer] dictation system. Although this document has been carefully reviewed, there may still be some phonetic and typographical errors. These areas are purely typographical due to imperfections of the software programs, and do not reflect any compromise in the patient's medical care. Plan discussed with: Patient, Daughter, Son, Other (RN) My Orders Orders - KRANTHI INMAN NP Procedure Category Date Status Time Docusate Sodium PHA 02/26/25 In Process Capsule (Colace 17:15 Furosemide Injection PHA 02/28/25 Verified (Lasix Injection) 10:00 Methylprednisolone PHA 02/27/25 Verified Sod Succ (Solu Medrol 22:00 Date of Service: Feb 27, 2025 Billing Provider: KRANTHI INMAN NP Common Visit Codes: [id number] INP/OBS CARE(HIGH) KRANTHI INMAN NP Feb 27, 2025 12:17
[2025-02-27] MEDS: methylPREDNISolone SOD SUCC 40 MG/ML VL IV SCH (21:35)
[2025-02-28] VITALS (19 sets, daily range): BP systolic 111–162; BP diastolic 61–97; PULSE 59–96; RESP 17–24; TEMP 97.2–97.9; O2SAT 92–100
[2025-02-28 06:26] LABS: Hematocrit 39.9 % (36.0-46.0); Hemoglobin 12.8 g/dL (12.2-16.2); Mean Corpuscular Hemoglobin 27.1 pg (28.0-32.0); Mean Corpuscular Volume 84.1 fL (80.0-100.0); Nucleated Red Blood Cells % 0.1 %
[2025-02-28 06:40] LABS: Anion Gap 11 (5-15); Carbon Dioxide 26 mmol/L (20-31); Potassium 4.4 mmol/L (3.5-5.1)
[2025-02-28 06:42] LABS: Calcium 9.6 mg/dL (8.7-10.4)
[2025-02-28 06:47] LABS: BUN/Creatinine Ratio 23.0 (10.0-20.0)
[2025-02-28 06:48] LABS: Blood Urea Nitrogen 35 mg/dL (9-23); Chloride 97 mmol/L (98-107); Glucose 297 mg/dL (74-106); Sodium 134 mmol/L (136-145)
--- NOTE | 2025-02-28 07:29 | DVH ---
CHEST RADIOGRAPH Indication: pna Technique: Single frontal view of the chest was obtained Comparison: XY CHEST PORTABLE on DOS: 02/26/25 FINDINGS: Lines and Tubes: None Lungs: No focal consolidation. Pleura: No effusion. No pneumothorax. Cardiomediastinal contours: Cardiomegaly. Bones: No acute osseous abnormality. IMPRESSION: 1. No acute pulmonary disease. 2. Cardiomegaly.
[2025-02-28] MEDS: FUROSEMIDE 20 MG/2 ML VIAL IV SCH (09:46)
--- NOTE | 2025-02-28 10:30 | DVHPN2 ---
Progress Note Date Seen: Feb 28, 2025 Medical Necessity Reason Pt with a Central, PICC or Fol: No Subjective Patient reports: No new complaints Review of Systems: HEENT:Normal, CVS:Normal, RESPIRATORY:Normal, GI:Normal, :Normal, MSK:Normal, NEURO:Normal Objective vital signs Vital Sign Date Time Temp Pulse Resp B/P (MAP) Pulse Ox O2 Delivery O2 Flow Rate FiO2 02/28/25 09:46 130/73 02/28/25 09:45 85 02/28/25 08:45 97.3 19 100 97.3 02/28/25 08:05 Nasal Cannula* 3 32 Total Intake and Output 02/27/25 02/27/25 02/28/25 15:00 23:00 07:00 Intake Total 101 ml 800 ml 500 ml Balance 101 ml 800 ml 500 ml medications Current Medications Medications Dose Ordered Sig/Carl Route Start Time Stop Time Status Last Admin Dose Admin Allopurinol 100 mg DAILY PO 02/25/25 10:00 02/27/25 08:25 100 MG Levothyroxine Sodium 100 mcg QAM@0600 PO 02/25/25 06:00 02/28/25 05:52 100 MCG Ondansetron HCl 4 mg Q4HP PRN IV 02/24/25 18:15 Acetaminophen 650 mg Q6HP PRN PO 02/24/25 18:15 02/26/25 17:34 650 MG Levothyroxine Sodium 25 mcg QAM@0600 PO 02/25/25 06:00 02/28/25 05:52 25 MCG Levalbuterol HCl 0.625 mg Q6HR NEB 02/25/25 18:00 02/28/25 07:47 0.625 MG Ipratropium [place] 0.5 mg Q6HR NEB 02/25/25 18:00 02/28/25 07:47 0.5 MG Albuterol 1.25 mg Q4HPRN PRN NEB 02/25/25 21:00 02/26/25 11:08 1.25 MG Budesonide 0.5 mg BID NEB 02/26/25 22:00 02/28/25 07:47 0.5 MG Meropenem 50 ml @ 17 mls/hr Q12HR IV 02/26/25 14:00 02/28/25 09:44 17 MLS/HR Docusate Sodium 100 mg BIDPRN PRN PO 02/26/25 17:15 Furosemide 20 mg DAILY IV 02/28/25 10:00 02/28/25 09:46 20 MG Spironolactone 25 mg DAILY PO 03/01/25 10:00 UNV Dobutamine HCl/ Dextrose 250 ml @ 10.05 mls/ hr Q24H IV 02/28/25 10:15 UNV Enteral Nutritional Formula 240 ml BIDWM PO 02/28/25 18:00 UNV Pantoprazole Sodium 40 mg DAILY@0600 PO 03/01/25 06:00 UNV Examination: GENERAL:Normal, HEENT:Normal, NECK:Normal, LUNGS:Normal, LUNGS:Abnormal (on oxygen, rales), CVS:Normal, ABDOMEN:Normal, MSK:Normal, SKIN:Normal, NEURO:Normal, :Normal laboratory and microbiology Laboratory Tests 02/28/25 05:08 Test 02/28/25 05:08 Range/Units Serum Glucose 297 H 74-106 mg/dL Problem List/Assessment/Plan Problem List/Assessment/Plan #1 acute resp failure: cont oxygen #2 acute on chronic systolic heart failure: lasix, dobutamine #3 acute renal failure ?vasomotor nephropathy #4 uti: iv meropenem #5 gout #6 ?pneumonia: iv meropenem advance care planning- dnr- time spent 19 mins Plan discussed with: Patient, Daughter My Orders My Orders Orders - DELLA KENNY MD Procedure Category Date Status Time Spironolactone PHA 03/01/25 Logged (Aldactone) 10:00 Spironolactone PHA 02/28/25 Logged (Aldactone) 10:15 Dobutamine 1000mcg/Ml PHA 02/28/25 Logged (Dobutrex) 10:15 Nutritional PHA 02/28/25 Transmitted Supplements (Ensure 18:00 Basic Metabolic Panel LAB 03/01/25 Verified 06:00 Pantoprazole Tablet PHA 02/28/25 Transmitted (Protonix Tablet) 10:30 Pantoprazole Tablet PHA 03/01/25 Transmitted (Protonix Tablet) 06:00 Dietary Evaluation Review Comments: 1) Initiate Glucerna qd 2) Encourage optimal PO intake 3) Follow-up with cardiology, pulmonology, and nephrology 4) Continue to monitor I&O, labs, and skin integrity Expected Outcomes/Goals: 1) appetite and labs to improve 2) f/u in 3-5 days Date of Service: Feb 28, 2025 Billing Provider: DELLA KENNY MD Common Visit Codes: [id number] INP/OBS CARE(HIGH) Secondary Visit Codes: [id number] CARE PLAN 30 MINUTES DELLA KENNY MD Feb 28, 2025 10:30
[2025-02-28] MEDS: PANTOPRAZOLE 40 MG TAB PO ONE (11:47)
[2025-02-28] MEDS: SPIRONOLACTONE 25 MG TAB PO ONE (11:47)
[2025-02-28] MEDS: DOBUTamine 1000MCG/ML 250 ML IV SCH (11:48)
[2025-02-28] MEDS: Ensure HIGH Protein Chocolate 8oz Bottle PO SCH (18:00)
[2025-03-01] VITALS (14 sets, daily range): BP systolic 114–134; BP diastolic 64–76; PULSE 81–102; RESP 16–22; TEMP 97–98; O2SAT 92–100
[2025-03-01 05:36] LABS: Hematocrit 39.5 % (36.0-46.0); Hemoglobin 12.8 g/dL (12.2-16.2); Mean Corpuscular Hemoglobin 26.8 pg (28.0-32.0); Mean Corpuscular Volume 82.6 fL (80.0-100.0); Nucleated Red Blood Cells % 0.0 %
[2025-03-01] MEDS: PANTOPRAZOLE 40 MG TAB PO SCH (05:38)
[2025-03-01 05:41] LABS: Anion Gap 9 (5-15); Carbon Dioxide 29 mmol/L (20-31); Potassium 3.7 mmol/L (3.5-5.1)
[2025-03-01 05:42] LABS: Calcium 9.3 mg/dL (8.7-10.4)
[2025-03-01 05:47] LABS: BUN/Creatinine Ratio 31.5 (10.0-20.0)
[2025-03-01 05:48] LABS: Blood Urea Nitrogen 40 mg/dL (9-23); Chloride 94 mmol/L (98-107); Glucose 169 mg/dL (74-106); Sodium 132 mmol/L (136-145)
--- NOTE | 2025-03-01 10:04 | DVHPN2 ---
Progress Note Date Seen: Mar 01, 2025 Medical Necessity Reason Pt with a Central, PICC or Fol: No Subjective Patient reports: No new complaints Review of Systems: HEENT:Normal, CVS:Normal, RESPIRATORY:Normal, GI:Normal, :Normal, MSK:Normal, NEURO:Normal Objective vital signs Vital Sign Date Time Temp Pulse Resp B/P (MAP) Pulse Ox O2 Delivery O2 Flow Rate FiO2 03/01/25 08:30 97.3 98 19 116/64 (81) 92 97.3 03/01/25 08:08 Nasal Cannula* 3 32 Total Intake and Output 02/28/25 02/28/25 03/01/25 14:59 22:59 06:59 Intake Total 525 ml 670 ml Output Total 700 ml Balance -175 ml 670 ml medications Current Medications Medications Dose Ordered Sig/Carl Route Start Time Stop Time Status Last Admin Dose Admin Allopurinol 100 mg DAILY PO 02/25/25 10:00 02/28/25 10:47 100 MG Levothyroxine Sodium 100 mcg QAM@0600 PO 02/25/25 06:00 03/01/25 05:38 100 MCG Ondansetron HCl 4 mg Q4HP PRN IV 02/24/25 18:15 Acetaminophen 650 mg Q6HP PRN PO 02/24/25 18:15 03/01/25 00:26 650 MG Levothyroxine Sodium 25 mcg QAM@0600 PO 02/25/25 06:00 03/01/25 05:38 25 MCG Levalbuterol HCl 0.625 mg Q6HR NEB 02/25/25 18:00 03/01/25 06:24 0.625 MG Ipratropium [place] 0.5 mg Q6HR NEB 02/25/25 18:00 03/01/25 06:24 0.5 MG Albuterol 1.25 mg Q4HPRN PRN NEB 02/25/25 21:00 02/26/25 11:08 1.25 MG Budesonide 0.5 mg BID NEB 02/26/25 22:00 03/01/25 06:24 0.5 MG Meropenem 50 ml @ 17 mls/hr Q12HR IV 02/26/25 14:00 02/28/25 21:25 17 MLS/HR Docusate Sodium 100 mg BIDPRN PRN PO 02/26/25 17:15 Furosemide 20 mg DAILY IV 02/28/25 10:00 02/28/25 09:46 20 MG Spironolactone 25 mg DAILY PO 03/01/25 10:00 Dobutamine HCl/ Dextrose 250 ml @ 10.05 mls/ hr Q24H IV 02/28/25 10:15 02/28/25 11:48 10.05 MLS/HR Enteral Nutritional Formula 240 ml BIDWM PO 02/28/25 18:00 03/01/25 08:07 240 ML Pantoprazole Sodium 40 mg DAILY@0600 PO 03/01/25 06:00 03/01/25 05:38 40 MG Examination: GENERAL:Normal, HEENT:Normal, NECK:Normal, LUNGS:Normal, LUNGS:Abnormal (on oxygen), CVS:Normal, ABDOMEN:Normal, MSK:Normal, SKIN:Normal, NEURO:Normal, :Normal laboratory and microbiology Laboratory Tests 03/01/25 05:05 Test 03/01/25 05:05 Range/Units Serum Glucose 169 H 74-106 mg/dL Problem List/Assessment/Plan Problem List/Assessment/Plan #1 acute resp failure: cont oxygen #2 acute on chronic systolic heart failure: lasix, dobutamine #3 acute renal failure ?vasomotor nephropathy #4 uti: iv rocephin #5 gout #6 ?pneumonia: iv rocephin advance care planning- dnr- time spent 19 mins Plan discussed with: Patient, Daughter My Orders My Orders Orders - DELLA KENNY MD Procedure Category Date Status Time Spironolactone PHA 03/01/25 In Process (Aldactone) 10:00 Dobutamine 1000mcg/Ml PHA 02/28/25 In Process (Dobutrex) 10:15 Nutritional PHA 02/28/25 In Process Supplements (Ensure 18:00 Pantoprazole Tablet PHA 03/01/25 In Process (Protonix Tablet) 06:00 * Retort Pre Cooker CONS 02/28/25 Transmitted Consult Nystatin PHA 03/01/25 Verified (Mouth-Throat) 10:15 Nystatin PHA 03/01/25 Verified (Mouth-Throat) 12:00 Ceftriaxone Ivpb PHA 03/02/25 Verified Rocephin 09:00 Echo 2d Mode Cardiac US 03/01/25 Verified DOP 10:01 Pt Request For Service PT 03/01/25 Verified 10:01 Basic Metabolic Panel LAB 03/02/25 Verified 06:00 Abg W/ Co-Ox RT 03/02/25 Verified 06:00 Dietary Evaluation Review Comments: 1) Initiate Glucerna qd 2) Encourage optimal PO intake 3) Follow-up with cardiology, pulmonology, and nephrology 4) Continue to monitor I&O, labs, and skin integrity Expected Outcomes/Goals: 1) appetite and labs to improve 2) f/u in 3-5 days Date of Service: Mar 01, 2025 Billing Provider: DELLA KENNY MD Common Visit Codes: [id number] INP/OBS CARE(HIGH) DELLA KENNY MD Mar 01, 2025 10:04
[2025-03-01] MEDS: SPIRONOLACTONE 25 MG TAB PO SCH (10:34)
[2025-03-01] MEDS: NYSTATIN (MOUTH-THROAT) 500,000 UNITS/5 ML SUSP MT ONE (11:43)
[2025-03-01] MEDS ORDERED: NYSTATIN (MOUTH-THROAT) 500,000 UNITS/5 ML SUSP MT SCH (12:00)
[2025-03-01] MEDS: NYSTATIN (MOUTH-THROAT) 500,000 UNITS/5 ML SUSP MT SCH (17:25)
[2025-03-02] VITALS (9 sets, daily range): BP systolic 95–123; BP diastolic 50–75; PULSE 85–105; RESP 17–20; TEMP 36.8; O2SAT 91–100
--- NOTE | 2025-03-02 01:34 | DVHSR ---
APPROVED REPORT EXAM: Two-dimensional and M-mode echocardiogram with Doppler and color Doppler. Blood Pressure: 116/64 mmHg INDICATION CHF RISK FACTORS Height: 63, Weight: 134 DIMENSIONS LVDd (3.8-5.7cm)LA (2D)4.8 (1.9-4.0cm)Aortic Root (2.0-3.7cm) EF (%) 10.0 (55-70%)Rt. Atrium4.0 (1.9-4.0cm)Asc. Aorta cm Mitral Valve MitralMitral Stenosis E wave0.98m/sMV Mean GR.4mmHg A wave1.12m/sMV Peak GR.94mmHg E/A ratio0.92D MVAcm2 DECEL [id number] 1/2 Timems Aortic Valve Aortic ValveAortic Stenosis V10.81m/Zachery Mean GR.3mmHg V21.28m/Zachery Peak GR.7mmHg AI P 1/2 Scsz080.04ms Tricuspid Valve TR Velocity2.84m/s [id number] Other Information Technically limited study due to body habitus. Conclusion REMARKABLY DILATED LV SEVERE LV GLOBAL HYPOKINESIS LV EF IS ONLY 10% MODERATELY DILATED RV MODERATE DEGREE PULMONARY HYPERTENSION SEVERE MR SEVERE AORTIC REGURGITATION NO EFFUSION
[2025-03-02 07:39] LABS: Anion Gap 11 (5-15); Potassium 3.6 mmol/L (3.5-5.1)
[2025-03-02 07:40] LABS: Calcium 10.1 mg/dL (8.7-10.4)
[2025-03-02 07:45] LABS: BUN/Creatinine Ratio 27.5 (10.0-20.0)
[2025-03-02 07:51] LABS: Blood Urea Nitrogen 39 mg/dL (9-23); Carbon Dioxide 31 mmol/L (20-31); Chloride 92 mmol/L (98-107); Glucose 173 mg/dL (74-106); Sodium 134 mmol/L (136-145)
[2025-03-02] MEDS: cefTRIAXone 1GM/50ML D5W 50 ML IV SCH (09:10)
--- NOTE | 2025-03-02 09:51 | DVHDS2 ---
Discharge Summary Date of Admission Feb 24, 2025 at 18:06 Date of Discharge: Mar 02, 2025 Labs/Diagnostic Data: Laboratory Results Test 03/02/25 05:48 03/01/25 05:05 02/26/25 05:00 02/24/25 19:36 Sodium Level 134 mmol/L (136-145) Potassium Level 3.6 mmol/L (3.5-5.1) Chloride Level 92 mmol/L (98-107) Carbon Dioxide Level 31 mmol/L (20-31) Anion Gap 11 (5-15) Blood Urea Nitrogen 39 mg/dL (9-23) Creatinine 1.42 mg/dL (0.550-1.02) Glomerular Filtration Rate Calc 36 mL/min (>90) BUN/Creatinine Ratio 27.5 (10.0-20.0) Serum Glucose 173 mg/dL (74-106) Calcium Level 10.1 mg/dL (8.7-10.4) White Blood Count 10.9 10^3/uL (4.4-10.8) Red Blood Count 4.78 10^6/uL (4.0-5.20) Hemoglobin 12.8 g/dL (12.2-16.2) Hematocrit 39.5 % (36.0-46.0) Mean Corpuscular Volume 82.6 fL (80.0-100.0) Mean Corpuscular Hemoglobin 26.8 pg (28.0-32.0) Mean Corpuscular Hemoglobin Concent 32.5 g/dL (32.0-36.0) Red Cell Distribution Width 16.7 % (11.8-14.3) Platelet Count 307 10^3/uL (140-450) Mean Platelet Volume 7.4 fL (6.9-10.8) Neutrophils (%) (Auto) 70.2 % (37.0-80.0) Lymphocytes (%) (Auto) 20.8 % (10.0-50.0) Monocytes (%) (Auto) 8.7 % (0.0-12.0) Eosinophils (%) (Auto) 0.1 % (0.0-7.0) Basophils (%) (Auto) 0.2 % (0.0-2.0) Neutrophils # (Auto) 7.6 10 ^3/uL (1.6-8.6) Lymphocytes # (Auto) 2.3 10 ^3/uL (0.4-5.4) Monocytes # (Auto) 1.0 10 ^3/uL (0-1.3) Eosinophils # (Auto) 0 10 ^3/uL (0-0.8) Basophils # (Auto) 0 10 ^3/uL (0-0.2) Nucleated Red Blood Cells 0.0 % Erythrocyte Sedimentation Rate 19 mm/hr (0-20) Lactic Acid Level 2.0 mmol/L (0.4-2.0) C-Reactive Protein High Sensitivity 0.43 mg/dL (<1.0) B-Type Natriuretic Peptide 884.80 pg/mL (0-100) Thyroid Stimulating Hormone (TSH) 5.60 uIU/mL (0.55-4.78) Troponin I High Sensitivity 25 ng/L (</=34) Test 02/24/25 19:10 02/24/25 16:48 Urine Color Light-yellow (Yellow) Urine Clarity Turbid (Clear) Urine pH 5.5 (5.0-9.0) Urine Specific [place] 1.013 (1.001-1.035) Urine Protein Negative (Negative) Urine Ketones Negative (Negative) Urine Blood Negative /uL (Negative) Urine Nitrite 2+ (Negative) Urine Bilirubin Negative (Negative) Urine Urobilinogen Normal mg/dL (Negative) Urine Leukocyte Esterase 3+ /uL (Negative) Urine RBC 3 /hpf (0 - 4) Urine Microscopic WBC 94 /HPF (0-5) Urine Squamous Epithelial Cells Few /hpf (<5) Urine Bacteria Many /hpf (None Seen) Urine Mucus Few (None Seen) Urine Glucose Trace mg/dL (Normal) Total Bilirubin 0.3 mg/dL (0.2-1.0) Aspartate Amino Transferase (AST) 19 U/L (13-40) Alanine Aminotransferase (ALT) < 9 U/L (7-40) Alkaline Phosphatase 86 U/L (46-116) Total Protein 7.1 g/dL (5.7-8.2) Albumin 4.5 g/dL (3.2-4.8) Other Laboratory Tests 03/02/25 05:48 03/01/25 05:05 Brief Hx & Hospital Course: SEE DICTATED NOTE Condition at Discharge: Fair Final Diagnosis/Problems List CHF Discharge Disposition: Home Discharge Instruct/Medications Diet: Cardiac 2g Na,low cholest Activity: No Restrictions, As Tolerated Follow Up/Referral: FU WITH PCP/CARDIOLOGY Medications: RESUME HOME MEDS SCRIPT TO PHARMACY ABG/PULSE OX ON ROOM AIR Scheduled Allopurinol (Allopurinol), 100 MG PO DAILY, (Reported) Bumetanide (Bumetanide), 1 MG PO DAILY, (Reported) Docusate Sodium (Docusate Sodium), 1 CAP PO BID, (Reported) Empagliflozin (Jardiance), 10 MG PO QAM Levothyroxine Sodium (Levothyroxine Sodium), 1 TAB PO DAILY, (Reported) Metoprolol Succinate (Metoprolol Succinate Er), 1 TAB PO DAILY, (Reported) Pantoprazole Sodium Sesquihydr (Pantoprazole Sodium), 20 MG PO DAILY, (Reported) Spironolactone (Spironolactone), 1 TAB PO DAILY, (Reported) Discharge Statement: "Patient was advised to return to the ER or call 911 if any headaches, dizziness, shortness of breath, chest pain, abdominal pain, bleeding, fevers, or worsening of medical condition. Patient was counseled about treatment plan, medications, possible side effects, patientverbalized understanding. All questions were answered to the best of my ability. This discharge took greater then 30 minutes in planning, reviewing documentation, counseling the patient, and discussing with other team members." ASSESSMENT ASSESSMENT Assessment CHF Date of Service: Mar 02, 2025 Billing Provider: DELLA KENNY MD Common Visit Codes: [id number] DISCH DAY >30min DELLA KENNY MD Mar 02, 2025 09:51
[2025-03-02] MEDS ORDERED: FLUC100T34 PO (09:52)
--- NOTE | 2025-03-02 10:07 | DVHDS ---
DATE OF DISCHARGE: 03/01/2025 HISTORY OF PRESENT ILLNESS: The patient is an 85-year-old lady who is admitted with increasing shortness of breath and wheezing and has history of congestive heart failure, hypothyroidism and gout as well as chronic kidney disease. HOSPITAL COURSE: The patient had a CT of the chest that showed evidence of cardiomegaly with infiltrates. The patient was diuresed with Lasix as well as started on dobutamine drip. Creatinine remained at about 1.2-1.5. The patient has since had improvement in the symptoms. She had urinary tract infection and was treated with IV antibiotics. The patient will now be discharged home to resume her home medications as well as to be on fluconazole 100 mg daily for 5 days. The echocardiogram done showed ejection fraction of 10%. FINAL DIAGNOSES: Therefore: * Acute on chronic systolic heart failure. * Acute respiratory failure. * Acute on chronic renal failure, questionable vasomotor nephropathy. * UTI. * Gout. * Questionable pneumonia. * DNR status. * Oral thrush. Time spent in discharge planning and the review of plan with the patient and family was 38 minutes. The patient will also have a pulse ox/ABG prior to discharge. MD SANAM Bean/MANFRED TID: [id number] RECEIPT: [id number]
== END 2025-03-02 14:25 | disposition home or self-care (01) | DRG 177 ==
LOC: EDBD 16:12 → ER 16:12 → EDUNIT# 16:12 → OVERFLOW 18:06 → CENTRAL 21:33 → TELE-CENTR 02-26 18:25
PROVIDERS: ADMIT Internal Medicine; ATTEND Internal Medicine
DX: J15.69 Pneumonia due to other Gram-negative bacteria (principal); I50.23 Acute on chronic systolic (congestive) heart failure; J96.01 Acute respiratory failure with hypoxia; N17.0 Acute kidney failure with tubular necrosis; N39.0 Urinary tract infection, site not specified; B37.0 Candidal stomatitis; J15.9 Unspecified bacterial pneumonia; Z66 Do not resuscitate; J45.909 Unspecified asthma, uncomplicated; E11.22 Type 2 diabetes mellitus with diabetic chronic kidney disease; N18.32 Chronic kidney disease, stage 3b; E03.9 Hypothyroidism, unspecified; M10.9 Gout, unspecified; Z91.148 Patient's other noncompliance with medication regimen for other reason; Z88.0 Allergy status to penicillin; Z79.899 Other long term (current) drug therapy
CPT/HCPCS: 36415; 71045; 71250; 80048; 80053; 81001; 83605; 83880; 84443; 84484; 85025; 85652; 86141; 93306; 94640; 96374; 96375; G0378; J1956; J2185

== ENCOUNTER 2025-03-06 20:15 | Inpatient (IN) | payer MEDICARE, MEDICAID ==
[~2025-03-06] VITALS: Ht 162.6 cm; Wt 57.9 kg
[~2025-03-06 20:15] MED LIST changes: +DOCU-265 PO; -DOCU100T15 PO; +FLUC100T34 PO; -LEVO100T8 PO; +LEVO75TA6 PO; -METO25TA5 PO; +METO25TA93 PO; +PANT40T PO; +SPIR25TA8 PO
[2025-03-06] MEDS ORDERED: DOBUTamine 1000MCG/ML 250 ML IV ONE (20:45)
[2025-03-06] MEDS: BUMETANIDE 1mg/4ml VIAL (0.25mg/ml) IV ONE (20:45)
[2025-03-06 20:48] LABS: Hematocrit 40.5 % (36.0-46.0); Nucleated Red Blood Cells % 0.0 %
--- NOTE | 2025-03-06 20:48 | ED.PDOC ---
History of Present Illness HPI Comments 85 y/o Vietnamese-speaking F is BIBA from private residence for c/c of shortness of breath. Per EMS report, patient's family called on patient's behalf following endorsement of no improvement of symptoms following initial onset after admission discharge from [facility] on 03/02/25. Significant history of acute respiratory failure, AFib, CHF systolic w/EF of 10%, CKF, gout, HTN, hypothyroidism, oral thrush, UTI's, and DNR status. Patient was found on scene with junky rhonchi in bilateral lung sanchez upon auscultation. Breathing normal and unlabored. Initial SpO2 of 86%RA, blood pressure of 120's/60's, pulse rate of 90's, and blood glucose of 252. No reported chest pain, cough, fever, chills, bilateral leg swelling, or further associated symptoms. Chief Complaint: Shortness of Breath Time Seen by MD: 20:20 Primary Care Provider: otis Reviewed Notes: Nurses Notes, Classification Case Manager Notes, Medications, Allergies Allergies: Coded Allergies: Penicillins (Verified Allergy, Severe, 07/14/13) Home Meds Active Scripts Fluconazole (Fluconazole) 100 Mg Tab, 100 MG PO DAILY for 5 Days, #5 TAB Prov:DELLA KENNY MD 03/02/25 Empagliflozin (Jardiance) 10 Mg Tab, 10 MG PO QAM for 30 Days, #30 TAB 2 Refills Prov:DELLA KENNY MD 05/08/23 Reported Medications Pantoprazole Sodium Sesquihydr (Pantoprazole Sodium) 40 Mg Tab, 20 MG PO DAILY, TAB 02/24/25 Allopurinol (Allopurinol) 100 Mg Tab, 100 MG PO DAILY, TAB 02/24/25 Docusate Sodium (Docusate Sodium) 100 Mg Cap, 1 CAP PO BID 02/24/25 Levothyroxine Sodium (Levothyroxine Sodium) 75 Mcg Tab, 1 TAB PO DAILY 02/24/25 Metoprolol Succinate (Metoprolol Succinate Er) 25 Mg Tab, 1 TAB PO DAILY 02/24/25 Spironolactone (Spironolactone) 25 Mg Tab, 1 TAB PO DAILY 02/24/25 Bumetanide (Bumetanide) 1 Mg Tab, 1 MG PO DAILY, TAB 07/14/13 Information Source: Emergency Med Personnel, H Medical Record, Past Medical Record Mode of Arrival: EMS Severity: Moderate Timing: Days Duration: Since onset Prehospital treatment: 12 Lead EKG, Accucheck, Director Of Enrollment, Oxygen, Other (IV access ) Past Medical History PAST MEDICAL HISTORY: AFIB, CHF (Systolic with EF 10%), CKF, Gout, HTN, Thyroid ( hypothyroidism), UTI'S Past Medical History (Other): Acute respiratory failure Oral thrush Surgical History: Cholecystectomy Family History Family History: Reviewed,noncontributory to illness Social History Smoker: Non-Smoker Alcohol: Denies ETOH Use Drugs: Denies Drug Use Lives In: Home Other DNR status All Other Systems: Reviewed and Negative (Comprehensive systems review obtained and negative except for what is stated in the HPI.) Physical Exam General Appearance: Mild Distress HEENT: Pharynx Normal Neck: Normal Inspection Respiratory: Other (Crackles) Cardiovascular: JVD Breast Exam: Deferred Gastrointestinal: No Organomegaly Genitalia: Deferred Pelvic: Deferred Rectal: Deferred Extremities: No pedal edema Neurologic: No Motor Deficits Cerebellar Function: NOT DONE Reflexes: NOT DONE Skin: Normal Color Lymphatic: NOT DONE Was a procedure done? Was a procedure done?: No EKG EKG : Pulse Rate (adult): 94 [place]: Normal Cardiac Rhythm: NSR Block: LBBB Hypertrophy: None ST: Normal Differential Dx Considerations may include: Acute CHF exacerbation, DC, PE, ACS, URI, PNA, viral syndrome, pleural effusion, among others X-Ray, Labs, Meds, VS Vital Signs Date Time Temp Pulse Resp B/P (MAP) Pulse Ox O2 Delivery O2 Flow Rate FiO2 03/06/25 23:14 94 03/06/25 23:05 86 18 106/64 (78) 100 03/06/25 21:11 90 03/06/25 21:05 92 18 109/86 (94) 100 03/06/25 20:55 94 17 99 Nasal Cannula* 2 28 03/06/25 20:48 94 03/06/25 20:45 117/72 03/06/25 20:22 99.0 100 20 121/69 (86) 100 99.0 03/06/25 20:19 94 Lab Test 03/06/25 22:29 03/06/25 20:33 Range/Units Total Bilirubin 0.3 0.2-1.0 mg/dL Direct Bilirubin 0.1 <0.3 mg/dL Aspartate Amino Transferase (AST) 17 13-40 U/L Alanine Aminotransferase (ALT) 11 7-40 U/L Alkaline Phosphatase 89 46-116 U/L Troponin I High Sensitivity 35 *H 33 </=34 ng/L Total Protein 6.7 5.7-8.2 g/dL Albumin 4.2 3.2-4.8 g/dL White Blood Count 13.3 H 4.4-10.8 10^3/uL Red Blood Count 4.87 4.0-5.20 10^6/uL Hemoglobin 13.3 12.2-16.2 g/dL Hematocrit 40.5 36.0-46.0 % Mean Corpuscular Volume 83.2 80.0-100.0 fL Mean Corpuscular Hemoglobin 27.4 L 28.0-32.0 pg Mean Corpuscular Hemoglobin Concent 32.9 32.0-36.0 g/dL Red Cell Distribution Width 16.1 H 11.8-14.3 % Platelet Count 306 140-450 10^3/uL Mean Platelet Volume 7.5 6.9-10.8 fL Neutrophils (%) (Auto) 54.8 37.0-80.0 % Lymphocytes (%) (Auto) 35.8 10.0-50.0 % Monocytes (%) (Auto) 7.6 0.0-12.0 % Eosinophils (%) (Auto) 1.2 0.0-7.0 % Basophils (%) (Auto) 0.6 0.0-2.0 % Neutrophils # (Auto) 7.3 1.6-8.6 10 ^3/uL Lymphocytes # (Auto) 4.8 0.4-5.4 10 ^3/uL Monocytes # (Auto) 1.0 0-1.3 10 ^3/uL Eosinophils # (Auto) 0.2 0-0.8 10 ^3/uL Basophils # (Auto) 0.1 0-0.2 10 ^3/uL Nucleated Red Blood Cells 0.0 % Prothrombin Time 10.9 9.3-11.8 sec Prothrombin Time INR 1.03 0.9-1.15 Activated Partial Thromboplast Time 24.2 L 24.5-34.5 SEC Sodium Level 134 L 136-145 mmol/L Potassium Level 3.9 3.5-5.1 mmol/L Chloride Level 99 98-107 mmol/L Carbon Dioxide Level 27 20-31 mmol/L Anion Gap 8 5-15 Blood Urea Nitrogen 34 H 9-23 mg/dL Creatinine 1.52 H 0.550-1.02 mg/dL Glomerular Filtration Rate Calc 33 >90 mL/min BUN/Creatinine Ratio 22.4 H 10.0-20.0 Serum Glucose 257 H 74-106 mg/dL Lactic Acid Level 1.6 0.4-2.0 mmol/L Calcium Level 9.6 8.7-10.4 mg/dL B-Type Natriuretic Peptide 830.42 0-100 pg/mL Time of 1ST Reevaluation: 20:50 Reevaluation 1ST: Unchanged Patient Education/Counseling: Diagnosis, Treatment, Other (need for admission ) Family Education/Counseling: Diagnosis, Treatment, Other (need for admission ) Additional Information Previous visits reviewed: N/A The following tests were ordered, and results were reviewed by me: N/A Additional Information was gathered from interviewing the following independent historians: N/A I reviewed and agreed with the following test results read by other providers: N/A I discussed treatment and results with medical personnel and: patient SEPSIS Sepsis Screen Date sepsis recognized/suspect: Mar 06, 2025 Time Sepsis recognized/suspect: 2024 Recent Procedure: No On Antibiotic Therapy: No Respiratory Rate >20: No Heart Rate >90: No Temp<36 C (96.8 F) or >38.3 C: No SBP <90 or MAP <65 mmHG: No New Acute Mental Status Change: No Is the patient on CPAP, BIPAP,: No Physician Orders Chest Portable (03/06/25 20:24) Urinalysis (03/06/25 20:31) DNR (03/06/25 20:33) Sodium Chloride Lock (Saline Lock Ns) (03/07/25 06:00) Complete Blood Count (03/07/25 04:00) Comprehensive Metabolic Panel (03/07/25 04:00) Cardiac Diet-2gna,Lofat,Lochol (03/07/25 Breakfast) Nitroglycerin Sublingual (Ntrostat Subli (03/07/25 00:00) Stat Ekg For Chest Pain (03/06/25 23:53) Notify Md Of Changes From Base (03/06/25 23:53) Military Source Operations Officer For 24 Hours (03/06/25 23:53) Oxygen By Nasal Cannula (03/06/25 23:53) Vital Signs Date Time Temp Pulse Resp B/P (MAP) Pulse Ox O2 Delivery O2 Flow Rate FiO2 03/06/25 23:14 94 03/06/25 23:05 86 18 106/64 (78) 100 03/06/25 21:11 90 03/06/25 21:05 92 18 109/86 (94) 100 03/06/25 20:55 94 17 99 Nasal Cannula* 2 28 03/06/25 20:48 94 03/06/25 20:45 117/72 03/06/25 20:22 99.0 100 20 121/69 (86) 100 99.0 03/06/25 20:19 94 Laboratory Tests Test 03/06/25 20:33 Lactic Acid Level 1.6 mmol/L (0.4-2.0) White Blood Count 13.3 10^3/uL (4.4-10.8) H Departure 1 Departure Time of Disposition: 05:53 (Patient presented with shortness of breath that was concerning for possible STEMI, ACS, PE, Pneumonia, Muscle Strain, COPD, Dissection, Acute on Chronic systolic and Diastolic dysfunction. Data: 1. I o rdered and reviewed the result of at least 3 labs including a CBC, BMP, and Troponin. 2. I independently interpreted the following tests: EKG which shows sinus arrhthmia and Chest X-ray which shows cardiomegaly.Risk:This patient has a high risk of morbidity due to further diagnostic testing or treatment and may suffer from an acute cardiac or respiratory disorder but is most consitent with an acute chf exacerbation. Patient should be admitted for further workup and possible expert consultation. ) Impression: Primary Impression: Acute on chronic systolic heart failure Additional Impression: Acute chest pain Disposition: 09 ADMITTED INPATIENT Admit to: Tele Condition: Guarded Critical Care Note Critical Care Time?: Yes Critical care comment: Acute chest pain Authorized and Performed by: Chester Davis MD Total critical care time: Approximately 47 minutes Due to a high probability of clinically significant, life threatening deteriorat ion, the patient required my highest level of preparedness to intervene emergently and I personally spent this critical care time directly and personally managing the patient. This critical care time included obtaining a history; examining the patient; pulse oximetry; ordering and review of studies; arranging urgent treatment with development of a management plan; evaluation of patient's response to treatment; frequent reassessment; and, discussions with other providers. This critical care time was performed to assess and manage the high probability of imminent, life-threatening deterioration that could result in multi-organ failure. It was exclusive of separately billable procedures and treating other patients and teaching time. Please see my other sections and the rest of the note for further information on patient assessment and treatment. Stability Stability form required: No Heart Score Heart Score: Heart Score Response (Comments) Value History Highly Suspicious 2 EKG Normal 0 Age >65 2 Risk Factors >3 or Hx ASHD 2 Troponin >3 x's Normal limit 2 Total 8 I personally scribed for CHESTER DAVIS MD ([email or web address]) on 03/06/25 at 20:48. Electronically submitted by Gen Eldridge [email or web address]). CHESTER DAVIS MD Mar 06, 2025 20:48
[2025-03-06 20:49] LABS: Hemoglobin 13.3 g/dL (12.2-16.2); Mean Corpuscular Hemoglobin 27.4 pg (28.0-32.0); Mean Corpuscular Volume 83.2 fL (80.0-100.0)
[2025-03-06 20:53] LABS: Chloride 99 mmol/L (98-107); Potassium 3.9 mmol/L (3.5-5.1)
[2025-03-06 20:54] LABS: Anion Gap 8 (5-15); Calcium 9.6 mg/dL (8.7-10.4); Carbon Dioxide 27 mmol/L (20-31)
[2025-03-06 20:55] VITALS: PULSE 94; RESP 17; O2SAT 99
[2025-03-06 20:55] LABS: Sodium 134 mmol/L (136-145)
[2025-03-06 20:59] LABS: BUN/Creatinine Ratio 22.4 (10.0-20.0)
[2025-03-06 21:00] LABS: Blood Urea Nitrogen 34 mg/dL (9-23); Glucose 257 mg/dL (74-106)
[2025-03-06 21:05] LABS: INR 1.03 (0.9-1.15); Partial Thromboplastin Time 24.2 SEC (24.5-34.5); Prothrombin Time 10.9 sec (9.3-11.8)
--- NOTE | 2025-03-06 21:12 | ECG ---
[facility] Test Date: 2025-03-06 Test Time: 21:11:17 Pat Name: CAMILO LIRIANO Department: ED Room: 0205T Gender: F Jig Hand: elena : 1940 Requested By: CHESTER DAVIS Order Number: [id number] Reading MD: Linus Brownlee Measurements Intervals [place] Rate: 90 P: 18 OR: 168 QRS: -29 QRSD: 201 T: 131 QT: 463 QTc: 567 Interpretive Statements Sinus rhythm IVCD, consider atypical LBBB Inferior infarct, acute (RCA) Probable RV involvement, suggest recording right precordial leads Baseline wander in lead(s) V1 Electronically Signed On 03-09-2025 15:55:00 PDT by Linus Brownlee Please click the below link to view image of tracing.
--- NOTE | 2025-03-06 21:22 | DVH ---
CHEST RADIOGRAPH Indication: sob Technique: Single frontal view of the chest was obtained COMPARISON: XY CHEST PORTABLE on DOS: 02/28/25, XY CHEST PORTABLE on DOS: 02/26/25, XY CHEST PORTABLE o n DOS: 05/11/24, XY CHEST PORTABLE on DOS: 05/06/23, CXRP on DOS: 11/14/21 FINDINGS: Lines and Tubes: None Lungs: Clear Pleura: No effusion. No pneumothorax. Cardiomediastinal contours: Cardiomegaly. Bones: Unremarkable IMPRESSION: 1. Cardiomegaly.
--- NOTE | 2025-03-06 21:54 | ECG ---
[facility] Test Date: 2025-03-06 Test Time: 20:19:16 Pat Name: CAMILO LIRIANO Department: ED Room: 0205T Gender: F Hand Wrapper Operator: elean : 1940 Requested By: CHESTER DAVIS Order Number: [id number] Reading MD: Linus Brownlee Measurements Intervals [place] Rate: 94 P: 6 ND: 197 QRS: -24 QRSD: 200 T: 141 QT: 468 QTc: 586 Interpretive Statements Sinus rhythm Probable left atrial enlargement IVCD, consider atypical LBBB Inferior infarct, acute (RCA) Probable RV involvement, suggest recording right precordial leads Electronically Signed On 03-09-2025 15:54:57 PDT by Linus Brownlee Please click the below link to view image of tracing.
--- NOTE | 2025-03-06 23:15 | ECG ---
[facility] Test Date: 2025-03-06 Test Time: 23:14:01 Pat Name: CAMILO LIRIANO Department: ED Room: 0205T Gender: F Field Recorder: elena : 1940 Requested By: CHESTER DAVIS Order Number: [id number] Reading MD: Linus Brownlee Measurements Intervals [place] Rate: 94 P: -29 GA: 208 QRS: -41 QRSD: 200 T: 117 QT: 477 QTc: 597 Interpretive Statements Sinus rhythm Borderline prolonged GA interval Left bundle branch block Electronically Signed On 03-09-2025 15:55:12 PDT by Linus Brownlee Please click the below link to view image of tracing.
--- NOTE | 2025-03-06 23:54 | DVHHP2 ---
History of Present Illness History of Present Illness Patient is 85 years old female with a past medical history of hypertension, atrial fibrillation, HFrEF, EF 10%, hypothyroidism, CKD, gout was brought in by EMS due to shortness of breaths. Family called EMS as patient had shortness of breaths and wheezing at home. As per EMS record patient was found to have rhonchi on bilateral lung sanchez, SpO2 in room air was 86%, blood pressure of 120's/60's, pulse rate of 90's, and blood glucose of 252. Patient and daughter in-law Mary denied any fever, chest pain, dysuria, diarrhea, acute joint pain or swelling. Lab workup revealed leukocytosis with WBC 13.3, RDW 16.1, sodium 134, serum creatinine 1.52, BUN 34, blood sugar 257, troponin I 33> 35>43, BNP 830, chest x-ray cardiomegaly. EKG sinus rhythm with LBBB. Past Medical History hypertension, atrial fibrillation, HFrEF, EF 10%, hypothyroidism, CKD, gout Past Surgical History Cholecystectomy Past Social History Denies smoking/alcoholism/drug abuse Review of Systems Review of Systems Allergy- penicillin Patient was seen today at the bedside. Cardiovascular- deny acute chest pain or palpitation Gastrointestinal- denies any rectal bleeding, nausea or vomiting Musculoskeletal-denies acute joint swelling or tenderness or redness Neurological- hospital atrophy Psychiatry- denies depression or SI or HI Skin- denies acute rash or purpura Allergies: Coded Allergies: Penicillins (Verified Allergy, Severe, 07/14/13) Exam Vital Signs Vital Signs Date Time Temp Pulse Resp B/P (MAP) Pulse Ox O2 Delivery O2 Flow Rate FiO2 03/06/25 23:14 94 03/06/25 20:45 117/72 03/06/25 20:22 99.0 20 100 99.0 Exam General examination- awake, alert, convert HEENT- PEERLA, no acute nasal discharge Cardiovascular- S1-S2 audible, rate and rhythm regular, systolic murmur+ Respiratory- bilateral crackles+, wheezing+ Gastrointestinal-nontender, bowel sound+. Nondistended Musculoskeletal-no acute joint swelling or tenderness or redness Lower extremity- no leg edema Neurological- cranial nerves intact, no acute dysarthria or dysphagia Psychiatry- denies depression or SI or HI Skin- no acute rash or purpura Labs/Xrays Labs Test 03/06/25 22:29 03/06/25 20:33 Range/Units Troponin I High Sensitivity 35 *H </=34 ng/L White Blood Count 13.3 H 4.4-10.8 10^3/uL Red Blood Count 4.87 4.0-5.20 10^6/uL Hemoglobin 13.3 12.2-16.2 g/dL Hematocrit 40.5 36.0-46.0 % Mean Corpuscular Volume 83.2 80.0-100.0 fL Mean Corpuscular Hemoglobin 27.4 L 28.0-32.0 pg Mean Corpuscular Hemoglobin Concent 32.9 32.0-36.0 g/dL Red Cell Distribution Width 16.1 H 11.8-14.3 % Platelet Count 306 140-450 10^3/uL Mean Platelet Volume 7.5 6.9-10.8 fL Neutrophils (%) (Auto) 54.8 37.0-80.0 % Lymphocytes (%) (Auto) 35.8 10.0-50.0 % Monocytes (%) (Auto) 7.6 0.0-12.0 % Eosinophils (%) (Auto) 1.2 0.0-7.0 % Basophils (%) (Auto) 0.6 0.0-2.0 % Neutrophils # (Auto) 7.3 1.6-8.6 10 ^3/uL Lymphocytes # (Auto) 4.8 0.4-5.4 10 ^3/uL Monocytes # (Auto) 1.0 0-1.3 10 ^3/uL Eosinophils # (Auto) 0.2 0-0.8 10 ^3/uL Basophils # (Auto) 0.1 0-0.2 10 ^3/uL Nucleated Red Blood Cells 0.0 % Prothrombin Time 10.9 9.3-11.8 sec Prothrombin Time INR 1.03 0.9-1.15 Activated Partial Thromboplast Time 24.2 L 24.5-34.5 SEC Sodium Level 134 L 136-145 mmol/L Potassium Level 3.9 3.5-5.1 mmol/L Chloride Level 99 98-107 mmol/L Carbon Dioxide Level 27 20-31 mmol/L Anion Gap 8 5-15 Blood Urea Nitrogen 34 H 9-23 mg/dL Creatinine 1.52 H 0.550-1.02 mg/dL Glomerular Filtration Rate Calc 33 >90 mL/min BUN/Creatinine Ratio 22.4 H 10.0-20.0 Serum Glucose 257 H 74-106 mg/dL Lactic Acid Level 1.6 0.4-2.0 mmol/L Calcium Level 9.6 8.7-10.4 mg/dL B-Type Natriuretic Peptide 830.42 0-100 pg/mL SEPSIS Sepsis Screen Date sepsis recognized/suspect: Mar 06, 2025 Time Sepsis recognized/suspect: 2024 Recent Procedure: No On Antibiotic Therapy: No Respiratory Rate >20: No Heart Rate >90: No Temp<36 C (96.8 F) or >38.3 C: No SBP <90 or MAP <65 mmHG: No New Acute Mental Status Change: No Is the patient on CPAP, BIPAP,: No Physician Orders Chest Portable (03/06/25 20:24) Troponin-I Hs (03/06/25 23:24) Urinalysis (03/06/25 20:31) Dobutamine 1000mcg/Ml (Dobutrex) (03/06/25 20:45) DNR (03/06/25 20:33) Vital Signs Date Time Temp Pulse Resp B/P (MAP) Pulse Ox O2 Delivery O2 Flow Rate FiO2 03/06/25 23:14 94 03/06/25 21:11 90 03/06/25 20:48 94 03/06/25 20:45 117/72 03/06/25 20:22 99.0 100 20 121/69 (86) 100 99.0 03/06/25 20:19 94 Laboratory Tests Test 03/06/25 20:33 Lactic Acid Level 1.6 mmol/L (0.4-2.0) White Blood Count 13.3 10^3/uL (4.4-10.8) H Assessment/Plan Assessment/Plan Assessment and plan # acute on chronic hypoxic respiratory failure # non STEMI likely type 2 likely due to demand lead ischemia # acute on chronic HFrEF, EF-10% # hypertension # atrial fibrillation --troponin I -33> 35> 43 -BNP-830 -CXR cardiomegaly -continue bumetanide 1 mg p.o. bid -continue nebulization as prescribed -continue metoprolol XL 25 mg p.o. daily -continue spironolactone 25 mg p.o. daily -Jardiance 10 mg p.o. daily --Losartan 25 mg p.o. daily # hypothyroidism -continue levothyroxine 75 mg p.o. q.a.m. # CKD stage III -avoid dehydration and nephrotoxic drugs # leukocytosis -pending urinalysis -chest x-ray cardiomegaly # gout -allopurinol 100 mg p.o. daily Diet-cardiac diet Goals of care, Code status DNR ; discussed with >15 minutes PUD prophylaxis: Pantoprazole DVT prophylaxis: Lovenox Plan discussed with Dr. Valles , nursing staff, Total time spent on patient evaluation, chart review, assessment and plan, discussion discussion >35 minutes Plan discussed with: Patient, Daughter, Other Date of Service: Mar 06, 2025 Billing Provider: JOSSELYN VALLES MD Common Visit Codes: [id number] INP/OBS CARE (HIGH) Secondary Visit Codes: [id number] CARE PLAN 30 MINUTES ZOË SCHMITT RESIDENT Mar 06, 2025 23:54
[2025-03-07] VITALS (11 sets, daily range): BP systolic 103–121; BP diastolic 59–69; PULSE 68–113; RESP 11–20; TEMP 97.1–99; O2SAT 93–100
[2025-03-07] MEDS ORDERED: NITROGLYCERIN 0.4 MG SL TAB SL PRN
[2025-03-07 01:53] LABS: Alanine Aminotransferase 11.0 U/L (7-40); Albumin 4.2 g/dL (3.2-4.8); Alkaline Phosphatase 89.0 U/L (46-116); Bilirubin, Direct 0.1 mg/dL (<0.3); Bilirubin, Total 0.3 mg/dL (0.2-1.0); Total Protein 6.7 g/dL (5.7-8.2)
[2025-03-07 05:15] LABS: COVID19 ANTIGEN SOFIA FIA NEGATIVE (NEGATIVE)
[2025-03-07] MEDS: SODIUM CHLOR 0.9% PF (SALINE LOCK) 10ML VIAL/SYR IV SCH (06:00)
[2025-03-07 06:30] LABS: Hematocrit 40.9 % (36.0-46.0); Hemoglobin 13.3 g/dL (12.2-16.2); Mean Corpuscular Hemoglobin 27.0 pg (28.0-32.0); Mean Corpuscular Volume 83.0 fL (80.0-100.0); Nucleated Red Blood Cells % 0.1 %
[2025-03-07 06:45] LABS: Alanine Aminotransferase 10 U/L (7-40); Alkaline Phosphatase 85 U/L (46-116); Anion Gap 10 (5-15); BUN/Creatinine Ratio 22.7 (10.0-20.0); Calcium 9.9 mg/dL (8.7-10.4); Carbon Dioxide 28 mmol/L (20-31); Potassium 4.1 mmol/L (3.5-5.1); Sodium 136 mmol/L (136-145); Total Protein 6.9 g/dL (5.7-8.2)
[2025-03-07 06:46] LABS: Albumin 4.3 g/dL (3.2-4.8); Bilirubin, Total 0.4 mg/dL (0.2-1.0)
[2025-03-07] MEDS: EMPAGLIFLOZIN 10 MG TAB PO SCH (06:46)
[2025-03-07] MEDS: BUMETANIDE 1mg/4ml VIAL (0.25mg/ml) IV SCH (06:46)
[2025-03-07 06:47] LABS: Blood Urea Nitrogen 35 mg/dL (9-23); Chloride 98 mmol/L (98-107); Glucose 197 mg/dL (74-106)
[2025-03-07] MEDS: ENOXAPARIN SOD 30 MG/0.3 ML SYRINGE SC ONE (06:47)
[2025-03-07] MEDS: ALBUTEROL SULF 2.5 MG/0.5ML(0.5%) NEB SOLN NEB SCH (07:12)
[2025-03-07] MEDS: IPRATROPIUM BROM 0.5 MG/2.5ML INH SOL NEB SCH (07:12)
[2025-03-07] MEDS ORDERED: LOSARTAN POTASSIUM 25 MG TAB PO SCH (10:00)
[2025-03-07] MEDS: METOPROLOL SUCCINATE XL 50 MG TAB PO SCH (10:00)
[2025-03-07] MEDS ORDERED: BUMETANIDE 1 MG TAB PO SCH (10:00)
[2025-03-07] MEDS: SPIRONOLACTONE 25 MG TAB PO SCH (10:14)
[2025-03-07] MEDS: LEVOTHYROXINE SODIUM 25 MCG TAB PO SCH (10:14)
[2025-03-07] MEDS: ALLOPURINOL 100 MG TAB PO SCH (10:14)
[2025-03-07] MEDS: DOCUSATE SOD 100 MG CAP PO SCH (10:15)
[2025-03-07] MEDS: PANTOPRAZOLE 40 MG TAB PO SCH (10:15)
[2025-03-07 10:21] LABS: Free T4 (Free Thyroxine) 1.56 ng/dL (0.89-1.76)
--- NOTE | 2025-03-07 10:37 | DVHPN2 ---
Progress Note Date Seen: Mar 07, 2025 Medical Necessity Reason Pt with a Central, PICC or Fol: No Subjective Patient reports: No new complaints Review of Systems: HEENT:Normal, CVS:Normal, RESPIRATORY:Normal, GI:Normal, :Normal, MSK:Normal, NEURO:Normal Objective vital signs Vital Sign Date Time Temp Pulse Resp B/P (MAP) Pulse Ox O2 Delivery O2 Flow Rate FiO2 03/07/25 10:00 84 101/57 03/07/25 08:31 16 93 Room Air* 0 21 03/07/25 08:00 97.9 97.9 medications Current Medications Medications Dose Ordered Sig/Carl Route Start Time Stop Time Status Last Admin Dose Admin Sodium Chloride 10 ml Q8HR IV 03/07/25 06:00 03/07/25 06:00 10 ML Nitroglycerin 0.4 mg Q5MINP PRN SL 03/07/25 00:00 Allopurinol 100 mg DAILY PO 03/07/25 10:00 03/07/25 10:14 100 MG Docusate Sodium 100 mg BID PO 03/07/25 10:00 03/07/25 10:15 100 MG Empaglifozin 10 mg QAM PO 03/07/25 07:00 03/07/25 06:46 10 MG Pantoprazole Sodium 20 mg DAILY PO 03/07/25 10:00 03/07/25 10:15 20 MG Spironolactone 25 mg DAILY PO 03/07/25 10:00 03/07/25 10:14 25 MG Levothyroxine Sodium 75 mcg DAILY PO 03/07/25 10:00 03/07/25 10:14 75 MCG Metoprolol Succinate 25 mg DAILY PO 03/07/25 10:00 Albuterol 2.5 mg Q6HWA [place] [place] 03/07/25 06:00 03/07/25 07:12 2.5 MG Ipratropium [place] 0.5 mg Q6HWA NEB 03/07/25 06:00 03/07/25 07:12 0.5 MG Bumetanide 1 mg BIDD IV 03/07/25 06:00 03/07/25 06:46 1 MG Losartan Potassium 25 mg DAILY PO 03/07/25 10:00 Hold Enoxaparin Sodium 30 mg DAILY SC 03/08/25 10:00 Examination: GENERAL:Normal, HEENT:Normal, NECK:Normal, LUNGS:Normal, CVS:Normal, ABDOMEN:Normal, MSK:Normal, SKIN:Normal, NEURO:Normal, :Normal laboratory and microbiology Laboratory Tests 03/07/25 05:00 Test 03/07/25 05:00 Range/Units Serum Glucose 197 H 74-106 mg/dL Problem List/Assessment/Plan Problem List/Assessment/Plan * Acute on chronic systolic heart failure: bumex iv * Acute respiratory failure. * Acute on chronic renal failure, questionable vasomotor nephropathy. * Gout. * dm- new onset: ssi * DNR status. advance care planning-dnr- time spent 19 mins Plan discussed with: Patient, Son My Orders My Orders Orders - DELLA KENNY MD Procedure Category Date Status Time Glucose Blood PHA 03/07/25 Verified (Accu-Chek Comfort 11:30 Mild Sliding Scale PHA 03/07/25 Verified 11:30 Dextrose 50% Syringe PHA 03/07/25 Verified 10:45 Basic Metabolic Panel LAB 03/08/25 Verified 06:00 Complete Blood Count LAB 03/08/25 Verified 06:00 Date of Service: Mar 07, 2025 Billing Provider: DELLA KENNY MD Common Visit Codes: [id number] INP/OBS CARE(HIGH) Secondary Visit Codes: [id number] CARE PLAN 30 MINUTES DELLA KENNY MD Mar 07, 2025 10:37
[2025-03-07] MEDS ORDERED: DEXTROSE (50%) 50ML SYRG IV PRN (10:45)
[2025-03-07] MEDS: InsuLIN REG 1unit/0.01ml Soln (100units/ml) SC SCH (11:30)
[2025-03-07] MEDS: ACCU-CHEK COMFORT CURVE STRIP VI SCH (11:36)
[2025-03-08] VITALS (14 sets, daily range): BP systolic 102–118; BP diastolic 58–74; PULSE 16–115; RESP 14–20; TEMP 97–98.3; O2SAT 95–100
[2025-03-08 07:23] LABS: Hematocrit 37.9 % (36.0-46.0); Hemoglobin 12.7 g/dL (12.2-16.2); Mean Corpuscular Hemoglobin 27.4 pg (28.0-32.0); Mean Corpuscular Volume 82.0 fL (80.0-100.0); Nucleated Red Blood Cells % 0.0 %
[2025-03-08 07:30] LABS: Anion Gap 13 (5-15); Carbon Dioxide 26 mmol/L (20-31); Potassium 4.1 mmol/L (3.5-5.1)
[2025-03-08 07:31] LABS: Calcium 9.9 mg/dL (8.7-10.4)
[2025-03-08 07:36] LABS: BUN/Creatinine Ratio 23.4 (10.0-20.0); Blood Urea Nitrogen 36 mg/dL (9-23); Chloride 94 mmol/L (98-107); Glucose 193 mg/dL (74-106); Sodium 133 mmol/L (136-145)
--- NOTE | 2025-03-08 10:13 | DVHPN2 ---
Progress Note Date Seen: Mar 08, 2025 Medical Necessity Reason Pt with a Central, PICC or Fol: No Subjective Patient reports: No new complaints Review of Systems: HEENT:Normal, CVS:Normal, RESPIRATORY:Normal, GI:Normal, :Normal, MSK:Normal, NEURO:Normal Objective vital signs Vital Sign Date Time Temp Pulse Resp B/P (MAP) Pulse Ox O2 Delivery O2 Flow Rate FiO2 03/08/25 08:58 98.3 98 16 118/74 (89) 98 98.3 03/08/25 08:00 Nasal Cannula* 2 28 Total Intake and Output 03/07/25 03/07/25 03/08/25 15:00 23:00 07:00 Intake Total 500 ml Balance 500 ml medications Current Medications Medications Dose Ordered Sig/Carl Route Start Time Stop Time Status Last Admin Dose Admin Sodium Chloride 10 ml Q8HR IV 03/07/25 06:00 03/08/25 05:20 10 ML Nitroglycerin 0.4 mg Q5MINP PRN SL 03/07/25 00:00 Allopurinol 100 mg DAILY PO 03/07/25 10:00 03/07/25 10:14 100 MG Docusate Sodium 100 mg BID PO 03/07/25 10:00 03/07/25 21:04 100 MG Empaglifozin 10 mg QAM PO 03/07/25 07:00 03/08/25 06:07 10 MG Pantoprazole Sodium 20 mg DAILY PO 03/07/25 10:00 03/07/25 10:15 20 MG Spironolactone 25 mg DAILY PO 03/07/25 10:00 03/07/25 10:14 25 MG Levothyroxine Sodium 75 mcg DAILY PO 03/07/25 10:00 03/07/25 10:14 75 MCG Metoprolol Succinate 25 mg DAILY PO 03/07/25 10:00 Albuterol 2.5 mg Q6HWA NEB 03/07/25 06:00 03/08/25 06:15 2.5 MG Ipratropium [place] 0.5 mg Q6HWA NEB 03/07/25 06:00 03/08/25 06:15 0.5 MG Bumetanide 1 mg BIDD IV 03/07/25 06:00 03/08/25 05:20 1 MG Enoxaparin Sodium 30 mg DAILY SC 03/08/25 10:00 Diagnostic Test (Pha) 1 strip ACHS 03/07/25 11:30 03/08/25 06:24 1 STRIP Insulin Human Regular ACHS SC 03/07/25 11:30 03/08/25 06:29 3 UNITS Dextrose 50 ml UD PRN IV 03/07/25 10:45 Examination: GENERAL:Normal, HEENT:Normal, NECK:Normal, LUNGS:Normal, LUNGS:Abnormal (BILATERAL RHONCHI), CVS:Normal, ABDOMEN:Normal, MSK:Normal, SKIN:Normal, NEURO:Normal, :Normal laboratory and microbiology Laboratory Tests 03/08/25 05:28 Test 03/08/25 05:28 Range/Units Serum Glucose 193 H 74-106 mg/dL Problem List/Assessment/Plan Problem List/Assessment/Plan * Acute on chronic systolic heart failure: bumex iv, add metolazone * Acute respiratory failure. * Acute on chronic renal failure, questionable vasomotor nephropathy. * Gout. * dm- new onset: ssi * DNR status. advance care planning-dnr- time spent 19 mins Plan discussed with: Patient, Daughter My Orders My Orders Orders - DELLA KENNY MD Procedure Category Date Status Time Glucose Blood PHA 03/07/25 In Process (Accu-Chek Comfort 11:30 Insulin R (Human) PHA 03/07/25 In Process (Insulin R) 11:30 Dextrose 50% Syringe PHA 03/07/25 In Process 10:45 Pt Request For Service PT 03/07/25 Logged 10:35 Date of Service: Mar 08, 2025 Billing Provider: DELLA KENNY MD Common Visit Codes: [id number] INP/OBS CARE(HIGH) DELLA KENNY MD Mar 08, 2025 10:13
[2025-03-08] MEDS: ENOXAPARIN SOD 30 MG/0.3 ML SYRINGE SC SCH (10:27)
[2025-03-08] MEDS: LEVALBUTEROL HCL 1.25 MG/3 ML NEB NEB SCH ×2 (11:09→19:35)
[2025-03-08 13:23] LABS: Urine Protein, UAD Negative (Negative)
[2025-03-08] MEDS ORDERED: Ensure HIGH Protein Chocolate 8oz Bottle PO SCH (18:00)
[2025-03-09] VITALS (16 sets, daily range): BP systolic 81–111; BP diastolic 41–72; PULSE 81–113; RESP 17–22; TEMP 97–98.4; O2SAT 92–100
--- NOTE | 2025-03-09 06:25 | DVH ---
CHEST RADIOGRAPH Indication: CHF Technique: Single frontal view of the chest was obtained COMPARISON: XY CHEST PORTABLE on DOS: 03/06/25, XY CHEST PORTABLE on DOS: 02/28/25, XY CHEST PORTABLE o n DOS: 02/26/25, XY CHEST PORTABLE on DOS: 05/11/24, XY CHEST PORTABLE on DOS: 05/06/23 FINDINGS: Lines and Tubes: None Lungs: Clear Pleura: No effusion. No pneumothorax. Cardiomediastinal contours: Cardiomegaly. Bones: Unremarkable IMPRESSION: 1. Cardiomegaly.
[2025-03-09 06:52] LABS: Anion Gap 12 (5-15); Calcium 10.2 mg/dL (8.7-10.4); Carbon Dioxide 26 mmol/L (20-31); Potassium 4.4 mmol/L (3.5-5.1)
[2025-03-09 06:58] LABS: BUN/Creatinine Ratio 18.9 (10.0-20.0)
[2025-03-09 07:02] LABS: Blood Urea Nitrogen 34 mg/dL (9-23); Chloride 93 mmol/L (98-107); Glucose 162 mg/dL (74-106); Sodium 131 mmol/L (136-145)
[2025-03-09] MEDS: Glucerna Carbsteady SHAKE Vanilla 8oz PO SCH (08:00)
--- NOTE | 2025-03-09 09:34 | DVHPN2 ---
Progress Note Date Seen: Mar 09, 2025 Medical Necessity Reason Pt with a Central, PICC or Fol: No Subjective Patient reports: No new complaints Review of Systems: HEENT:Normal, CVS:Normal, RESPIRATORY:Normal, GI:Normal, :Normal, MSK:Normal, NEURO:Normal Objective vital signs Vital Sign Date Time Temp Pulse Resp B/P (MAP) Pulse Ox O2 Delivery O2 Flow Rate FiO2 03/09/25 08:37 98.4 113 22 106/72 (83) 93 98.4 03/09/25 08:00 Nasal Cannula* 2 28 Total Intake and Output 03/08/25 03/08/25 03/09/25 15:00 23:00 07:00 Intake Total 250 ml 800 ml 150 ml Output Total 1125 ml Balance 250 ml -325 ml 150 ml medications Current Medications Medications Dose Ordered Sig/Carl Route Start Time Stop Time Status Last Admin Dose Admin Sodium Chloride 10 ml Q8HR IV 03/07/25 06:00 03/09/25 06:30 10 ML Nitroglycerin 0.4 mg Q5MINP PRN SL 03/07/25 00:00 Allopurinol 100 mg DAILY PO 03/07/25 10:00 03/08/25 10:24 100 MG Docusate Sodium 100 mg BID PO 03/07/25 10:00 03/08/25 21:13 100 MG Empaglifozin 10 mg QAM PO 03/07/25 07:00 03/09/25 06:31 10 MG Pantoprazole Sodium 20 mg DAILY PO 03/07/25 10:00 03/08/25 10:24 20 MG Spironolactone 25 mg DAILY PO 03/07/25 10:00 03/08/25 10:24 25 MG Levothyroxine Sodium 75 mcg DAILY PO 03/07/25 10:00 03/08/25 10:23 75 MCG Ipratropium [place] 0.5 mg Q6HWA NEB 03/07/25 06:00 03/09/25 06:20 0.5 MG Bumetanide 1 mg BIDD IV 03/07/25 06:00 03/09/25 06:30 1 MG Enoxaparin Sodium 30 mg DAILY SC 03/08/25 10:00 03/08/25 10:27 30 MG Diagnostic Test (Pha) 1 strip ACHS 03/07/25 11:30 03/09/25 06:51 1 STRIP Insulin Human Regular ACHS SC 03/07/25 11:30 03/09/25 06:54 6 UNITS Dextrose 50 ml UD PRN IV 03/07/25 10:45 Enteral Nutritional Formula 240 ml BIDWM PO 03/08/25 18:00 Levalbuterol HCl 1.25 mg Q6HWA NEB 03/08/25 18:00 03/09/25 06:23 1.25 MG Examination: GENERAL:Normal, HEENT:Normal, NECK:Normal, LUNGS:Normal, CVS:Normal, ABDOMEN:Normal, MSK:Normal, SKIN:Normal, NEURO:Normal, :Normal laboratory and microbiology Laboratory Tests 03/09/25 00:00 03/08/25 05:28 Test 03/09/25 00:00 Range/Units Serum Glucose 162 H 74-106 mg/dL Problem List/Assessment/Plan Problem List/Assessment/Plan * Acute on chronic systolic heart failure: trial of entresto * Acute respiratory failure. * Acute on chronic renal failure, questionable vasomotor nephropathy: dc bumex * Gout. * dm- jardiance, ssi * DNR status. advance care planning-dnr- time spent 19 mins Plan discussed with: Patient, Daughter My Orders My Orders Orders - DELLA KENNY MD Procedure Category Date Status Time Chest Portable XY 03/09/25 Resulted 06:00 Nutritional PHA 03/08/25 In Process Supplements (Glucerna 18:00 Sacubitril-Valsartan PHA 03/09/25 Transmitted (Entresto 24-26 Mg 10:00 Basic Metabolic Panel LAB 03/10/25 Verified 06:00 Date of Service: Mar 09, 2025 Billing Provider: DELLA KENNY MD Common Visit Codes: [id number] INP/OBS CARE(HIGH) DELLA KENNY MD Mar 09, 2025 09:34
[2025-03-09] MEDS: SACUBITRIL-VALSARTAN 24mg/26mg TAB PO SCH (10:41)
[2025-03-09] MEDS: BACLOFEN 10 MG TAB PO ONE (12:13)
[2025-03-09] MEDS: ACETAMINOPHEN 325 MG TAB PO PRN (15:00)
[2025-03-09] MEDS: BUMETANIDE 1mg/4ml VIAL (0.25mg/ml) IV ONE (15:00)
--- NOTE | 2025-03-09 15:10 | ECG ---
[facility] Test Date: 2025-03-07 Test Time: 14:51:04 Pat Name: CAMILO LIRIANO Department: ED Room: 0205T A Gender: F Brand Advocate: shazia : 1940 Requested By: CHESTER DAVIS Order Number: [id number] Reading MD: Linus Brownlee Measurements Intervals [place] Rate: 95 P: 42 AR: 170 QRS: 19 QRSD: 188 T: 192 QT: 433 QTc: 545 Interpretive Statements Sinus rhythm Ventricular premature complex IVCD, consider atypical LBBB Electronically Signed On 03-09-2025 16:58:52 PDT by Linus Brownlee Please click the below link to view image of tracing.
[2025-03-10] VITALS (17 sets, daily range): BP systolic 94–121; BP diastolic 53–75; PULSE 86–113; RESP 12–22; TEMP 97.5–98.6; O2SAT 94–100
[2025-03-10] MEDS: BACLOFEN 10 MG TAB PO PRN (00:52)
[2025-03-10 08:07] LABS: Hematocrit 41.3 % (36.0-46.0); Hemoglobin 13.5 g/dL (12.2-16.2); Mean Corpuscular Hemoglobin 27.0 pg (28.0-32.0); Mean Corpuscular Volume 82.9 fL (80.0-100.0); Nucleated Red Blood Cells % 0.1 %
[2025-03-10 08:22] LABS: Anion Gap 12 (5-15); Carbon Dioxide 27 mmol/L (20-31); Potassium 4.4 mmol/L (3.5-5.1)
[2025-03-10 08:23] LABS: Calcium 10.0 mg/dL (8.7-10.4); Chloride 88 mmol/L (98-107); Sodium 127 mmol/L (136-145)
[2025-03-10 08:29] LABS: BUN/Creatinine Ratio 19.8 (10.0-20.0); Blood Urea Nitrogen 40 mg/dL (9-23); Glucose 166 mg/dL (74-106)
[2025-03-10] MEDS: LORazepam 2MG/ML-1ML VIAL IV ONE (08:29)
--- NOTE | 2025-03-10 10:00 | DVHPN2 ---
Progress Note Date Seen: Mar 10, 2025 Medical Necessity Reason Pt with a Central, PICC or Fol: No Subjective Patient reports: No new complaints Review of Systems: HEENT:Normal, CVS:Normal, RESPIRATORY:Normal, GI:Normal, :Normal, MSK:Normal, NEURO:Normal Objective vital signs Vital Sign Date Time Temp Pulse Resp B/P (MAP) Pulse Ox O2 Delivery O2 Flow Rate FiO2 03/10/25 09:25 113 19 107/59 (75) 100 03/10/25 07:30 Nasal Cannula* 2 28 03/10/25 07:30 97.8 97.8 Total Intake and Output 03/09/25 03/09/25 03/10/25 15:00 23:00 07:00 Intake Total 300 ml 200 ml Output Total 850 ml 700 ml Balance -550 ml -500 ml medications Current Medications Medications Dose Ordered Sig/Carl Route Start Time Stop Time Status Last Admin Dose Admin Sodium Chloride 10 ml Q8HR IV 03/07/25 06:00 03/09/25 21:43 10 ML Nitroglycerin 0.4 mg Q5MINP PRN SL 03/07/25 00:00 Allopurinol 100 mg DAILY PO 03/07/25 10:00 03/09/25 10:41 100 MG Docusate Sodium 100 mg BID PO 03/07/25 10:00 03/09/25 10:41 100 MG Empaglifozin 10 mg QAM PO 03/07/25 07:00 03/09/25 06:31 10 MG Pantoprazole Sodium 20 mg DAILY PO 03/07/25 10:00 03/09/25 10:45 20 MG Levothyroxine Sodium 75 mcg DAILY PO 03/07/25 10:00 03/09/25 10:42 75 MCG Ipratropium [place] 0.5 mg Q6HWA NEB 03/07/25 06:00 03/10/25 05:53 0.5 MG Enoxaparin Sodium 30 mg DAILY SC 03/08/25 10:00 03/09/25 10:46 30 MG Diagnostic Test (Pha) 1 strip ACHS 03/07/25 11:30 03/10/25 07:04 1 STRIP Insulin Human Regular ACHS SC 03/07/25 11:30 03/09/25 21:50 3 UNITS Dextrose 50 ml UD PRN IV 03/07/25 10:45 Enteral Nutritional Formula 240 ml BIDWM PO 03/08/25 18:00 03/09/25 18:25 240 ML Levalbuterol HCl 1.25 mg Q6HWA NEB 03/08/25 18:00 03/10/25 05:53 1.25 MG Sacubitril/ Valsartan 0.5 tab BID PO 03/09/25 10:00 03/09/25 21:43 0.5 TAB Acetaminophen 650 mg Q6HP PRN PO 03/09/25 14:45 03/10/25 00:51 650 MG Baclofen 5 mg Q8HP PRN PO 03/09/25 19:45 03/10/25 00:52 5 MG Examination: GENERAL:Normal, HEENT:Normal, NECK:Normal, LUNGS:Normal, CVS:Normal, ABDOMEN:Normal, MSK:Normal, SKIN:Normal, NEURO:Normal, :Normal laboratory and microbiology Laboratory Tests 03/10/25 06:20 Test 03/10/25 06:20 Range/Units Serum Glucose 166 H 74-106 mg/dL Problem List/Assessment/Plan Problem List/Assessment/Plan * Acute on chronic systolic heart failure: dc entresto * Acute respiratory failure. * Acute on chronic renal failure, questionable vasomotor nephropathy: dc bumex, IVF, dc entresto * Gout. * dm- jardiance, ssi * DNR status. advance care planning-dnr- time spent 19 mins Plan discussed with: Patient, Daughter My Orders My Orders Orders - DELLA KENNY MD Procedure Category Date Status Time Acetaminophen Tablet PHA 03/09/25 In Process (Tylenol Tablet) 14:45 Baclofen Tablet PHA 03/09/25 In Process (Liorisal Tablet) 19:45 Sodium Chloride 0.9% PHA 03/10/25 In Process 10:00 Dietary Evaluation Review Comments: 1) Consider Glucerna 240ml BID if PO intake <50% 2) Monitor PO intake, lab values, wt trend Expected Outcomes/Goals: To meet >75% estimated needs Lab values to improve Fu 3-5 days Date of Service: Mar 10, 2025 Billing Provider: DELLA KENNY MD Common Visit Codes: [id number] INP/OBS CARE(HIGH) DELLA KENNY MD Mar 10, 2025 10:00
[2025-03-10] MEDS: SODIUM CHLORIDE 0.9% 1,000 ML IV ONE (10:49)
[2025-03-11] VITALS (14 sets, daily range): BP systolic 98–113; BP diastolic 46–67; PULSE 82–116; RESP 16–20; TEMP 97.1–98.2; O2SAT 95–100
[2025-03-11 08:04] LABS: Hematocrit 39.1 % (36.0-46.0); Hemoglobin 13.0 g/dL (12.2-16.2); Mean Corpuscular Hemoglobin 27.5 pg (28.0-32.0); Mean Corpuscular Volume 82.3 fL (80.0-100.0); Nucleated Red Blood Cells % 0.0 %
[2025-03-11 08:19] LABS: Potassium 4.1 mmol/L (3.5-5.1)
[2025-03-11 08:20] LABS: Anion Gap 9 (5-15); Carbon Dioxide 27 mmol/L (20-31)
[2025-03-11 08:21] LABS: Calcium 9.8 mg/dL (8.7-10.4)
[2025-03-11 08:23] LABS: Chloride 95 mmol/L (98-107); Sodium 131 mmol/L (136-145)
[2025-03-11 08:26] LABS: BUN/Creatinine Ratio 20.3 (10.0-20.0); Magnesium 2.0 mg/dL (1.6-2.6)
[2025-03-11 08:27] LABS: Blood Urea Nitrogen 35 mg/dL (9-23); Glucose 138 mg/dL (74-106)
[2025-03-11 14:10] LABS: Urine Protein, UAD Negative (Negative)
--- NOTE | 2025-03-11 15:02 | DVHPN2 ---
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 SECONDARY TO HFrEF GOUT CKD CACHEXIA NOW WITH PROGRESSIVE SX OF SOB vital signs Vital Sign Date Time Temp Pulse Resp B/P (MAP) Pulse Ox O2 Delivery O2 Flow Rate FiO2 03/11/25 14:05 97.6 82 19 107/67 (80) 98 97.6 03/11/25 11:47 Nasal Cannula* 2 28 Total Intake and Output 03/10/25 03/10/25 03/11/25 15:00 23:00 07:00 Intake Total 220 ml 550 ml Balance 220 ml 550 ml medications Current Medications Medications Dose Ordered Sig/Carl Route Start Time Stop Time Status Last Admin Dose Admin Sodium Chloride 10 ml Q8HR IV 03/07/25 06:00 03/10/25 20:57 10 ML Nitroglycerin 0.4 mg Q5MINP PRN SL 03/07/25 00:00 Allopurinol 100 mg DAILY PO 03/07/25 10:00 03/11/25 08:41 100 MG Docusate Sodium 100 mg BID PO 03/07/25 10:00 03/11/25 08:40 100 MG Empaglifozin 10 mg QAM PO 03/07/25 07:00 03/11/25 06:50 10 MG Pantoprazole Sodium 20 mg DAILY PO 03/07/25 10:00 03/11/25 08:39 20 MG Levothyroxine Sodium 75 mcg DAILY PO 03/07/25 10:00 03/11/25 08:38 75 MCG Ipratropium [place] 0.5 mg Q6HWA NEB 03/07/25 06:00 03/11/25 11:47 0.5 MG Diagnostic Test (Pha) 1 strip ACHS 03/07/25 11:30 03/11/25 11:47 1 STRIP Insulin Human Regular ACHS SC 03/07/25 11:30 03/11/25 12:02 3 UNITS Dextrose 50 ml UD PRN IV 03/07/25 10:45 Enteral Nutritional Formula 240 ml BIDWM PO 03/08/25 18:00 03/11/25 08:40 240 ML Levalbuterol HCl 1.25 mg Q6HWA NEB 03/08/25 18:00 03/11/25 11:47 1.25 MG Acetaminophen 650 mg Q6HP PRN PO 03/09/25 14:45 03/10/25 00:51 650 MG Baclofen 5 mg Q8HP PRN PO 03/09/25 19:45 03/10/25 00:52 5 MG objective JVD 3cm EXT 2+ EDEMA HEART RR PMI DISPLACED LATERALLY laboratory and microbiology Laboratory Tests 03/11/25 07:36 Test 03/11/25 07:36 Range/Units Serum Glucose 138 H 74-106 mg/dL Problem List 85 y/o ORGANIC HD HX OF PAROXYSMAL AFIB NOW IN SINUS RHYTHM LBBB EF <10% SEVERE AI/ 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
--- NOTE | 2025-03-11 18:32 | DVHPN2 ---
Subjective Seen and examined at bedside. More alert. Second opinion by Dr. Gibbs needed Changes from previous H/P or p: No Changes Objective Vitals Vital Signs Date Time Temp Pulse Resp B/P (MAP) Pulse Ox O2 Delivery O2 Flow Rate FiO2 03/11/25 17:00 97.5 84 20 98/46 (63) 100 97.5 03/11/25 11:47 Nasal Cannula* 2 28 Intake/Output Intake and Output 03/11/25 07:00 Intake Total 770 ml Balance 770 ml Intake Oral 620 ml IV Total 150 ml # Voids 3 General Appearance: Alert, Oriented X3, Cooperative, mild distress HEENT: Atraumatic Lungs: Other (creps) Cardiovascular: Regular rate, Normal S1, Normal S2 Abdomen: Normal bowel sounds, Soft Psych/Mental Status: Mental status NL Medications Current Medications Medications Dose Ordered Sig/Carl Route Start Time Stop Time Status Last Admin Dose Admin Sodium Chloride 10 ml Q8HR IV 03/07/25 06:00 03/10/25 20:57 10 ML Nitroglycerin 0.4 mg Q5MINP PRN SL 03/07/25 00:00 Allopurinol 100 mg DAILY PO 03/07/25 10:00 03/11/25 08:41 100 MG Docusate Sodium 100 mg BID PO 03/07/25 10:00 03/11/25 08:40 100 MG Empaglifozin 10 mg QAM PO 03/07/25 07:00 03/11/25 06:50 10 MG Pantoprazole Sodium 20 mg DAILY PO 03/07/25 10:00 03/11/25 08:39 20 MG Levothyroxine Sodium 75 mcg DAILY PO 03/07/25 10:00 03/11/25 08:38 75 MCG Ipratropium [place] 0.5 mg Q6HWA NEB 03/07/25 06:00 03/11/25 11:47 0.5 MG Diagnostic Test (Pha) 1 strip ACHS 03/07/25 11:30 03/11/25 17:16 1 STRIP Insulin Human Regular ACHS SC 03/07/25 11:30 03/11/25 12:02 3 UNITS Dextrose 50 ml UD PRN IV 03/07/25 10:45 Enteral Nutritional Formula 240 ml BIDWM PO 03/08/25 18:00 03/11/25 08:40 240 ML Levalbuterol HCl 1.25 mg Q6HWA NEB 03/08/25 18:00 03/11/25 11:47 1.25 MG Acetaminophen 650 mg Q6HP PRN PO 03/09/25 14:45 03/10/25 00:51 650 MG Baclofen 5 mg Q8HP PRN PO 03/09/25 19:45 03/10/25 00:52 5 MG Laboratory Results Laboratory Tests 03/11/25 07:36 Chemistry Test 03/11/25 07:36 Calcium Level 9.8 mg/dL (8.7-10.4) Magnesium Level 2.0 mg/dL (1.6-2.6) Urinalysis Test 03/11/25 13:30 Urine Color Light-yellow (Yellow) Urine Clarity Clear (Clear) Urine pH 7.0 (5.0-9.0) Urine Specific [place] 1.007 (1.001-1.035) Urine Protein Negative (Negative) Urine Ketones Negative (Negative) Urine Blood Negative /uL (Negative) Urine Nitrite Negative (Negative) Urine Bilirubin Negative (Negative) Urine Urobilinogen Normal mg/dL (Negative) Urine Leukocyte Esterase Negative /uL (Negative) Urine RBC <1 /hpf (0 - 4) Urine Microscopic WBC < 1 /HPF (0-5) Urine Squamous Epithelial Cells Few /hpf (<5) Urine Bacteria None seen /hpf (None Seen) Urine Glucose 4+ mg/dL (Normal) H Microbiology Microbiology Date/Time Source Procedure Growth Status 03/09/25 11:15 Blood Blood Culture - Preliminary NO GROWTH AFTER 48 HOURS OF INCUBATION. Resulted 03/09/25 08:46 Voided Urine Urine Culture - Final Complete Assessment/Plan Assessment/Plan * Acute on chronic systolic heart failure: dc entresto * Acute respiratory failure. * Acute on chronic renal failure, questionable vasomotor nephropathy: dc bumex, IVF, dc entresto * Gout. * dm- jardiance, ssi * DNR status. Plan discussed with: Patient My Orders Orders - JOSSELYN HUGHES MD Procedure Category Date Status Time Communication Order ORDERS 03/11/25 Transmitted 12:55 * Cardiology Consult CONS 03/11/25 Transmitted 13:48 Date of Service: Mar 11, 2025 Billing Provider: JOSSELYN HUGHES MD Common Visit Codes: [id number] INP/OBS CARE(HIGH) JOSSELYN HUGHES MD Mar 11, 2025 18:32
[2025-03-12 01:00] VITALS: BP 102/64; PULSE 103; RESP 18; TEMP 98.5; O2SAT 96
[2025-03-12 05:00] VITALS: BP 107/80; PULSE 108; RESP 18; TEMP 98.4; O2SAT 99
[2025-03-12 06:04] VITALS: PULSE 98; RESP 18; O2SAT 96
[2025-03-12 06:12] VITALS: PULSE 99; RESP 18; O2SAT 100
[2025-03-12 08:34] VITALS: BP 112/67; PULSE 113; RESP 20; TEMP 98.3; O2SAT 95
--- NOTE | 2025-03-12 09:25 | ECG ---
[facility] Test Date: 2025-03-10 Test Time: 07:40:40 Pat Name: CAMILO LIRIANO Department: Respiratoy Room: 0205T A Gender: F Evp [employer] Experience Strategy: LILY : 1940 Requested By: DELLA KENNY Order Number: [id number] Reading MD: Measurements Intervals [place] Rate: 89 P: 35 OK: 184 QRS: -48 QRSD: 183 T: 112 QT: 444 QTc: 541 Interpretive Statements Sinus rhythm Atrial premature complex Left bundle branch block Please click the below link to view image of tracing.
--- NOTE | 2025-03-12 09:25 | ECG ---
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
[2025-03-12 12:50] VITALS: BP 110/79; PULSE 111; RESP 19; TEMP 98.2; O2SAT 97
== END 2025-03-12 12:30 | disposition home or self-care (01) | DRG 280 ==
LOC: ER 20:15 → EDBD 20:15 → OVERFLOW 23:54 → TELE-CENTR 03-07 18:35
PROVIDERS: ADMIT Internal Medicine; ATTEND Internal Medicine
DX: I13.0 Hypertensive heart and chronic kidney disease with heart failure and stage 1 through stage 4 chronic kidney disease, or unspecified chronic kidney disease (principal); I50.23 Acute on chronic systolic (congestive) heart failure; I21.A1 Myocardial infarction type 2; J96.21 Acute and chronic respiratory failure with hypoxia; N17.0 Acute kidney failure with tubular necrosis; R64 Cachexia; Z66 Do not resuscitate; E03.9 Hypothyroidism, unspecified; E11.22 Type 2 diabetes mellitus with diabetic chronic kidney disease; I48.0 Paroxysmal atrial fibrillation; M10.9 Gout, unspecified; N18.30 Chronic kidney disease, stage 3 unspecified; D72.829 Elevated white blood cell count, unspecified; Z79.899 Other long term (current) drug therapy; Z88.0 Allergy status to penicillin; Z79.84 Long term (current) use of oral hypoglycemic drugs; Z90.49 Acquired absence of other specified parts of digestive tract; Z68.23 Body mass index [BMI] 23.0-23.9, adult
CPT/HCPCS: 36415; 71045; 80048; 80053; 80076; 81001; 82270; 82306; 82607; 82746; 82962; 83036; 83605; 83735; 83880; 84439; 84484; 85025; 85610; 85730; 87040; 87086; 87426; 87804; 93005; 94640; 97110; 97116; 97163; 97530; 99291; G0378; J1815

== ENCOUNTER 2025-04-12 08:13 | Inpatient (IN) | payer MEDICARE, MEDICAID ==
[~2025-04-12] VITALS: Ht 160 cm; Wt 52.0 kg
[~2025-04-12 08:13] MED LIST changes: +BUME0.5T4 PO; +CHOL50007 PO; +CIPR250T26 PO
--- NOTE | 2025-04-12 08:33 | ED.PDOC ---
History of Present Illness HPI Comments 85-year-old female brought by paramedics because of right lower quadrant abdominal pain which started last night. Family members did state that she has a mass in her uterus she has been going on for many years. Paramedics could not getting of the story. She does deny nausea vomiting. Main reason for ER visit in his abdominal pain with no urinary symptoms. Chief Complaint: Abdominal Pain Time Seen by MD: 08:28 Primary Care Provider: otis Natarajan Notes: Nurses Notes, Medications, Allergies Allergies: Coded Allergies: Penicillins (Verified Allergy, Severe, 07/14/13) Home Meds Active Scripts Fluconazole (Fluconazole) 100 Mg Tab, 100 MG PO DAILY for 5 Days, #5 TAB Prov:DELLA KENNY MD 03/02/25 Empagliflozin (Jardiance) 10 Mg Tab, 10 MG PO QAM for 30 Days, #30 TAB 2 Refills Prov:DELLA KENNY MD 05/08/23 Reported Medications Pantoprazole Sodium Sesquihydr (Pantoprazole Sodium) 40 Mg Tab, 20 MG PO DAILY, TAB 02/24/25 Allopurinol (Allopurinol) 100 Mg Tab, 100 MG PO DAILY, TAB 02/24/25 Docusate Sodium (Docusate Sodium) 100 Mg Cap, 1 CAP PO BID 02/24/25 Levothyroxine Sodium (Levothyroxine Sodium) 75 Mcg Tab, 1 TAB PO DAILY 02/24/25 Metoprolol Succinate (Metoprolol Succinate Er) 25 Mg Tab, 1 TAB PO DAILY 02/24/25 Spironolactone (Spironolactone) 25 Mg Tab, 1 TAB PO DAILY 02/24/25 Bumetanide (Bumetanide) 1 Mg Tab, 1 MG PO DAILY, TAB 07/14/13 Information Source: Patient, Emergency Med Personnel Mode of Arrival: EMS Severity: Moderate Timing: Hours Duration: Since onset Past Medical History PAST MEDICAL HISTORY: AFIB, CHF, CKF, Gout, HTN, Thyroid, UTI'S Surgical History: Cholecystectomy 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 History Family History Family History: Reviewed,noncontributory to illness Social History Smoker: Non-Smoker Alcohol: Denies ETOH Use Drugs: Denies Drug Use Lives In: Home Constitutional: denies: chills, diaphoresis, fatigue, fever, malaise, sweats, weakness, others EENTM: denies: blurred vision, double vision, ear bleeding, ear discharge, ear drainage, ear pain, ear ringing, eye pain, eye redness, hearing loss, mouth pain, mouth swelling, nasal discharge, nose bleeding, nose congestion, nose pain, photophobia, tearing, throat pain, throat swelling, voice changes, others Respiratory: denies: cough, hemoptysis, orthopnea, SOB at rest, shortness of breath, SOB with excertion, stridor, wheezing, others Cardiovascular: denies: chest pain, dizzy spells, diaphoresis, Dyspnea on exertion, edema, irregular heart beat, left arm pain, lightheadedness, palpitations, PND, syncope, others Gastrointestinal: reports: abdominal pain; denies: abdomen distended, blood streaked bowels, constipated, diarrhea, dysphagia, difficulty swallowing, hematemesis, melena, nausea, poor appetite, poor fluid intake, rectal bleeding, rectal pain, vomiting, others Genitourinary: denies: abnormal vagina bleeding, burning, dyspareunia, dysuria, flank pain, frequency, hematuria, incontinence, pain, , vagina discharge, urgency, others Neurological: denies: dizziness, fainting, headache, left sided numbness, left sided weakness, numbness, paresthesia, pre-existing deficit, right sided numbness, right sided weakness, seizure, speech problems, tingling, tremors, weakness, others Musculoskeletal: denies: back pain, gout, joint pain, joint swelling, muscle pain, muscle stiffness, neck pain, others Integumetry: denies: bruises, change in color, change in hair/nails, dryness, laceration, lesions, lumps, rash, wounds, others Allergic/Immunocompromised: denies: Difficulty Healing, Frequent Infections, Hives, Itching, others Hematologic/Lymphatic: denies: anemia, blood clots, easy bleeding, easy bruising, swollen glands, others Endocrine: denies: excessive hunger, excessive sweating, excessive thirst, excessive urination, flushing, intolerance to cold, intolerance to heat, unexplained weight gain, unexplained weight loss, others Psychiatric: denies: anxiety, bipolar disorder, depression, hopeless, panic disorder, schizophrenia, sleepless, suicidal, others Physical Exam General Appearance: Moderate Distress HEENT: Normal ENT Inspection, Pharynx Normal, TMs Normal Neck: Full Range of Motion, Non-Tender, Normal, Normal Inspection Respiratory: Chest Non-Tender, Lungs Clear, No Accessory Muscle Use, No Respiratory Distress, Normal Breath Sounds Cardiovascular: No Edema, No JVD, No Murmur, No Gallop, Normal Peripheral Pulses, Regular Rate/Rhythm Breast Exam: Deferred Gastrointestinal: Soft Genitalia: Deferred Pelvic: Deferred Rectal: Deferred Extremities: No calf tenderness, Normal capillary refill, Normal inspection, Normal range of motion, Non-tender, No pedal edema Musculoskeletal : Apperance: Normal Neurologic: Alert, 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 Was a procedure done?: No Differential Dx Considerations may include: Colitis Electrolyte imbalance X-Ray, Labs, Meds, VS Vital Signs Date Time Temp Pulse Resp B/P (MAP) Pulse Ox O2 Delivery O2 Flow Rate FiO2 04/12/25 08:18 99.0 90 20 114/72 99 99.0 Lab Test 04/12/25 09:00 Range/Units White Blood Count 13.4 H 4.4-10.8 10^3/uL Red Blood Count 5.16 4.0-5.20 10^6/uL Hemoglobin 13.8 12.2-16.2 g/dL Hematocrit 42.9 36.0-46.0 % Mean Corpuscular Volume 83.1 80.0-100.0 fL Mean Corpuscular Hemoglobin 26.8 L 28.0-32.0 pg Mean Corpuscular Hemoglobin Concent 32.2 32.0-36.0 g/dL Red Cell Distribution Width 16.1 H 11.8-14.3 % Platelet Count 345 140-450 10^3/uL Mean Platelet Volume 7.3 6.9-10.8 fL Neutrophils (%) (Auto) 74.8 37.0-80.0 % Lymphocytes (%) (Auto) 17.7 10.0-50.0 % Monocytes (%) (Auto) 7.1 0.0-12.0 % Eosinophils (%) (Auto) 0.1 0.0-7.0 % Basophils (%) (Auto) 0.3 0.0-2.0 % Neutrophils # (Auto) 10.0 H 1.6-8.6 10 ^3/uL Lymphocytes # (Auto) 2.4 0.4-5.4 10 ^3/uL Monocytes # (Auto) 1.0 0-1.3 10 ^3/uL Eosinophils # (Auto) 0 0-0.8 10 ^3/uL Basophils # (Auto) 0 0-0.2 10 ^3/uL Nucleated Red Blood Cells 0.0 % Sodium Level 135 L 136-145 mmol/L Potassium Level 4.6 3.5-5.1 mmol/L Chloride Level 101 98-107 mmol/L Carbon Dioxide Level 25 20-31 mmol/L Anion Gap 9 5-15 Blood Urea Nitrogen 13 9-23 mg/dL Creatinine 1.24 H 0.550-1.02 mg/dL Glomerular Filtration Rate Calc 42 >90 mL/min BUN/Creatinine Ratio 10.5 10.0-20.0 Serum Glucose 165 H 74-106 mg/dL Calcium Level 9.5 8.7-10.4 mg/dL Lipase 51 12-53 U/L Patient alert. Complaining of abdominal pain. Abdomen is soft. Vitals stable. Chronic symptom. Possibly has uterine mass. Establish intravenous access. Was given fluids. Was given morphine. Was given Zofran. Waiting for family. Continue monitoring. [place] [id number] Ph: [phone] DIAGNOSTIC IMAGING Diagnostic Imaging Report : [id number] Signed PATIENT: CAMILO LIRIANO ACCT: [id number] UNIT: [id number] : 1940 LOC: ER ROOM / BED: / AGE / SEX: 85 / F ADM STATUS: REG ER SERVICE 0833 ORDERING PHYSICIAN: CHRISTINA PLEITEZ MD PROCEDURE(s): ABPL - CT AB PEL WO CON-NO ORAL OR IV REASON: colitis ORDER NUMBER(s): [id number], ACCESSION NUMBER(s): [id number] Exam: CT CT AB PEL WO CON-NO ORAL OR IV History: colitis Comparison Study: None. Technique: Multidetector spiral CT of the abdomen and pelvis was performed from lung bases to pubic symphysis. Imaging was performed without intravenous contrast. Coronal and sagittal multiplanar reformats were obtained from the axial data set by the technologist. Radiation Dose : 1. Abdomen/Pelvis: CTDIvol 12.95 mGy, DLP 3.21 mGy*cm. Findings: Motion artifact limits evaluation. Evaluation of vasculature and solid organs is limited due to lack of intravenous contrast use. Lung Bases: Cardiomegaly. Interstitial prominence. Liver: The liver is normal in size. No focal lesions. Gallbladder and Biliary Tree: The gallbladder is surgically absent. No intrahepatic or extrahepatic biliary ductal dilatation. Spleen: Unremarkable Pancreas: The pancreas is grossly unremarkable. Adrenal Glands: Unremarkable Kidneys: Kidneys are unremarkable without calculi or hydronephrosis. GI tract: The stomach is grossly normal in appearance. No evidence of small bowel wall thickening or abnormal dilatation to suggest bowel obstruction. No mucosal thickening. The appendix is visualized and demonstrates no acute inflammatory changes. Peritoneum/mesentery/retroperitoneum. There is a cystic mass in the right lower quadrant abutting the cecum measuring 14.1 X 12.9 cm. No evidence of free intraperitoneal air. No ascites. Lymph nodes: No evidence of suspicious lymphadenopathy. Abdominal Wall: Unremarkable. Vasculature: The visualized abdominal aorta is normal in size and caliber. Evaluation of abdominal and pelvic vessels is limited due to lack of intravenous contrast. There are atherosclerotic calcifications in the aorta. Urinary Bladder: Urinary bladder is distended. Pelvic Organs: Uterus and adnexal structures are unremarkable. Musculoskeletal: Limited evaluation of the bones due to motion artifact. No suspicious findings to suggest high-grade fracture. Right hip postsurgical changes. IMPRESSION: 1. Limited study due to motion artifact. 2. 14.1 cm cystic mass in the right lower quadrant. CT of the abdomen with oral and IV contrast is recommended for further evaluation. 3. No findings to suggest colitis. ATED BY: VINCE COX MD DICTATED DATE/TIME: 04/12/25913 SIGNED BY: VINCE COX MD SIGNED DATE/TIME: 04/12/25913 CC: Time of 1ST Reevaluation: 08:31 Reevaluation 1ST: Unchanged Patient Education/Counseling: Diagnosis, Treatment, Prognosis Family Education/Counseling: No Family Present SEPSIS Sepsis Screen Date sepsis recognized/suspect: Apr 12, 2025 Time Sepsis recognized/suspect: 0818 Recent Procedure: No On Antibiotic Therapy: No Respiratory Rate >20: No Heart Rate >90: No Temp<36 C (96.8 F) or >38.3 C: No SBP <90 or MAP <65 mmHG: No New Acute Mental Status Change: No Is the patient on CPAP, BIPAP,: No Physician Orders Urinalysis (04/12/25 08:33) Ct Ab Pel Wo Con-No Oral Or Iv (04/12/25 08:33) Vital Signs Date Time Temp Pulse Resp B/P (MAP) Pulse Ox O2 Delivery O2 Flow Rate FiO2 04/12/25 08:18 99.0 90 20 114/72 99 99.0 Laboratory Tests Test 04/12/25 09:00 White Blood Count 13.4 10^3/uL (4.4-10.8) H Departure 1 Departure Time of Disposition: 08:32 Impression: Primary Impression: Acute abdominal pain Disposition: ADMITTED INPATIENT Admit to: Med Surg Condition: Guarded Critical Care Note Critical Care Time?: No Stability Stability form required: No Heart Score Heart Score: Heart Score Response (Comments) Value History Slightly Suspicious 0 EKG Normal 0 Age >65 2 Risk Factors >3 or Hx ASHD 2 Troponin Normal limit 0 Total 4 I personally scribed for CHRISTINA PLEITEZ MD ([email or web address]) on 04/12/25 at 10:37. Electronically submitted by Nadja Linares ([email or web address]). CHRISTINA PLEITEZ MD Apr 12, 2025 08:33
[2025-04-12] MEDS: MORPHINE SULFATE 4 MG/ML SYR/VIAL IV ONE (08:45)
[2025-04-12] MEDS: ONDANSETRON HCL 4 MG/2 ML VIAL IV ONE (08:45)
--- NOTE | 2025-04-12 09:16 | DVH ---
Exam: CT CT AB PEL WO CON-NO ORAL OR IV History: colitis Comparison Study: None. Technique: Multidetector spiral CT of the abdomen and pelvis was performed from lung bases to pubic s ymphysis. Imaging was performed without intravenous contrast. Coronal and sagittal multiplanar reform ats were obtained from the axial data set by the technologist. Radiation Dose : 1. Abdomen/Pelvis: CTDIvol 12.95 mGy, DLP 3.21 mGy*cm. Findings: Motion artifact limits evaluation. Evaluation of vasculature and solid organs is limited due to lack of intravenous contrast use. Lung Bases: Cardiomegaly. Interstitial prominence. Liver: The liver is normal in size. No focal lesions. Gallbladder and Biliary Tree: The gallbladder is surgically absent. No intrahepatic or extrahepatic b iliary ductal dilatation. Spleen: Unremarkable Pancreas: The pancreas is grossly unremarkable. Adrenal Glands: Unremarkable Kidneys: Kidneys are unremarkable without calculi or hydronephrosis. GI tract: The stomach is grossly normal in appearance. No evidence of small bowel wall thickening or abnormal dilatation to suggest bowel obstruction. No mucosal thickening. The appendix is visualized a nd demonstrates no acute inflammatory changes. Peritoneum/mesentery/retroperitoneum. There is a cystic mass in the right lower quadrant abutting the cecum measuring 14.1 X 12.9 cm. No evidence of free intraperitoneal air. No ascites. Lymph nodes: No evidence of suspicious lymphadenopathy. Abdominal Wall: Unremarkable. Vasculature: The visualized abdominal aorta is normal in size and caliber. Evaluation of abdominal a nd pelvic vessels is limited due to lack of intravenous contrast. There are atherosclerotic calcifica tions in the aorta. Urinary Bladder: Urinary bladder is distended. Pelvic Organs: Uterus and adnexal structures are unremarkable. Musculoskeletal: Limited evaluation of the bones due to motion artifact. No suspicious findings to buchanan ggest high-grade fracture. Right hip postsurgical changes. IMPRESSION: 1. Limited study due to motion artifact. 2. 14.1 cm cystic mass in the right lower quadrant. CT of the abdomen with oral and IV contrast is r ecommended for further evaluation. 3. No findings to suggest colitis.
[2025-04-12 09:17] LABS: Hemoglobin 13.8 g/dL (12.2-16.2); Mean Corpuscular Hemoglobin 26.8 pg (28.0-32.0); Nucleated Red Blood Cells % 0.0 %
[2025-04-12 09:20] LABS: Hematocrit 42.9 % (36.0-46.0); Mean Corpuscular Volume 83.1 fL (80.0-100.0)
[2025-04-12 09:25] LABS: Chloride 101 mmol/L (98-107); Potassium 4.6 mmol/L (3.5-5.1)
[2025-04-12 09:26] LABS: Anion Gap 9 (5-15); Carbon Dioxide 25 mmol/L (20-31)
[2025-04-12 09:27] LABS: Calcium 9.5 mg/dL (8.7-10.4)
[2025-04-12 09:31] LABS: BUN/Creatinine Ratio 10.5 (10.0-20.0); Blood Urea Nitrogen 13 mg/dL (9-23)
[2025-04-12 09:32] LABS: Glucose 165 mg/dL (74-106); Sodium 135 mmol/L (136-145)
[2025-04-12 09:43] LABS: Lipase 51 U/L (12-53)
[2025-04-12 13:00] VITALS: PULSE 94; RESP 16; O2SAT 97
[2025-04-12] MEDS: SODIUM CHLORIDE 0.9% 1,000 ML IVB ONE (13:13)
[2025-04-12] MEDS: SODIUM CHLORIDE 0.9% 1,000 ML IV SCH (13:30)
[2025-04-12] MEDS ORDERED: ONDANSETRON HCL 4 MG/2 ML VIAL IV PRN (13:30)
[2025-04-12] MEDS ORDERED: ACETAMINOPHEN 325 MG TAB PO PRN (13:30)
[2025-04-12] MEDS ORDERED: HYDROcodone-ACET 5/325MG TAB PO PRN (13:30)
[2025-04-12] MEDS ORDERED: DOCUSATE SOD 100 MG CAP PO PRN (13:30)
--- NOTE | 2025-04-12 15:10 | DVHHP2 ---
History of Present Illness Reason for Visit: Acute abdominal pain History of Present Illness The patient is a 85-year-old female with past medical history of thyroid disease, UTIs, gout, CKF, CHF, AFib, and hypertension who presented to [facility] ED with complaint of acute abdominal pain. Family member reports that patient has ongoing mass in her uterus for many years. Patient experiencing right lower quadrant abdominal pain which started last night. Patient was seen and evaluated in the ED, laboratory data shows WBC 13.4, platelets 345, sodium 135, potassium 4.6, BUN 13, creatinine 1.24, GFR 42, glucose 165, hemoglobin A1c 7.8, calcium 9.5, lipase 51, BNP 1080.00, blood pressure 114/72, heart rate 99, temperature 99.0 F, O2 saturation 99% on oxygen. Abdomen/pelvis CT revealing 14.1 cm cystic mass in the right lower quadrant, no findings to suggest colitis. Patient was started on IV antibiotic regimen Invanz, please see medication orders section in the computer. On my assessment, patient denied chest pain, no headache, no dizziness, no shortness of breath, no diarrhea, no nausea, no vomiting, no fever, no chills. Patient was admitted for further evaluation and medical management. Past Medical History AFIB, CHF, CKF, Gout, HTN, Thyroid, UTI'S Past Surgical History Cholecystectomy Family History Reviewed, noncontributory to the management of this case. Past Social History The patient lives at home, denies smoking, alcohol or illicit drugs abuse. Review of Systems Constitutional: Yes: Weakness; No: Fever, Chills, Sweats, Malaise, Other Eyes: No: Pain, Vision change, Conjunctivae inflammation, Eyelid inflammation, Other, Redness ENT: No: Ear pain, Ear discharge, Nose pain, Nose discharge, Nose congestion, Mouth pain, Mouth swelling, Throat pain, Throat swelling, Other Respiratory: No: Cough, Dry, Shortness of breath, SOB with excertion, Wheezing, Hemoptysis, Pleuritic Pain, Sputum, Wheezing, Other Cardiovascular: No: Chest Pain, Palpitations, Orthopnea, Paroxysmal Noc. Dyspnea, Edema, Lt Headedness, Other Gastrointestinal: Abdominal Pain; No: Nausea, Vomiting, Diarrhea, Constipation, Melena, Hematochezia, Other Genitourinary: No Dysuria, No Frequency, No Incontinence, No Hematuria, No Retention, No Other Musculoskeletal: No: other, neck pain, shoulder pain, arm pain, back pain, hand pain, leg pain, foot pain Skin: No: Rash, Lesions, Jaundice, Bruising, Other Neurological: No: Weakness, Numbness, Incoordination, Change in speech, Confusion, Seizures, Other Allergies: Coded Allergies: Penicillins (Verified Allergy, Severe, 07/14/13) Morphine (Verified Allergy, Intermediate, RASHES , 04/12/25) Medications Current Medications Medications Dose Ordered Sig/Carl Route Start Time Stop Time Status Last Admin Dose Admin Allopurinol 100 mg DAILY PO 04/13/25 10:00 Famotidine 20 mg DAILY IV 04/13/25 10:00 Levothyroxine Sodium 75 mcg QAM@0600 PO 04/13/25 06:00 Carvedilol 3.125 mg Q12HR PO 04/12/25 22:00 Sodium Chloride 1,000 ml @ 60 mls/hr [id number] IV 04/12/25 13:30 04/12/25 13:30 60 MLS/HR Acetaminophen/ Hydrocodone Bitart 1 tab Q4HP PRN PO 04/12/25 13:30 Hold Ondansetron HCl 4 mg Q4HP PRN IV 04/12/25 13:30 Docusate Sodium 100 mg BIDPRN PRN PO 04/12/25 13:30 Acetaminophen 650 mg Q6HP PRN PO 04/12/25 13:30 Exam Vital Signs Vital Signs Date Time Temp Pulse Resp B/P (MAP) Pulse Ox O2 Delivery O2 Flow Rate FiO2 04/12/25 13:00 98.3 94 18 90/44 (59) 97 98.3 General Appearance: Alert, Oriented X3, Cooperative, No acute distress HEENT: Atraumatic, PERRLA, EOMI, Mucous membr. moist/pink Respiratory: Normal air movement Cardiovascular: Regular rate, Normal S1, Normal S2, No murmurs Abdominal: Normal bowel sounds, Soft, No hepatospenomegaly, No masses, Other (Reports tenderness) Extremities: No clubbing, No cyanosis, No edema, Normal pulses, No tenderness/swelling Skin: No rashes, No significant lesion Neuro: Normal speech, Normal tone, Sensation intact, Cranial nerves 3-12 NL, Reflexes 2+, Other (Generalized weakness) Psych/Mental Status: Mental status NL, Mood NL Labs/Xrays Labs Test 04/12/25 09:00 Range/Units White Blood Count 13.4 H 4.4-10.8 10^3/uL Red Blood Count 5.16 4.0-5.20 10^6/uL Hemoglobin 13.8 12.2-16.2 g/dL Hematocrit 42.9 36.0-46.0 % Mean Corpuscular Volume 83.1 80.0-100.0 fL Mean Corpuscular Hemoglobin 26.8 L 28.0-32.0 pg Mean Corpuscular Hemoglobin Concent 32.2 32.0-36.0 g/dL Red Cell Distribution Width 16.1 H 11.8-14.3 % Platelet Count 345 140-450 10^3/uL Mean Platelet Volume 7.3 6.9-10.8 fL Neutrophils (%) (Auto) 74.8 37.0-80.0 % Lymphocytes (%) (Auto) 17.7 10.0-50.0 % Monocytes (%) (Auto) 7.1 0.0-12.0 % Eosinophils (%) (Auto) 0.1 0.0-7.0 % Basophils (%) (Auto) 0.3 0.0-2.0 % Neutrophils # (Auto) 10.0 H 1.6-8.6 10 ^3/uL Lymphocytes # (Auto) 2.4 0.4-5.4 10 ^3/uL Monocytes # (Auto) 1.0 0-1.3 10 ^3/uL Eosinophils # (Auto) 0 0-0.8 10 ^3/uL Basophils # (Auto) 0 0-0.2 10 ^3/uL Nucleated Red Blood Cells 0.0 % Sodium Level 135 L 136-145 mmol/L Potassium Level 4.6 3.5-5.1 mmol/L Chloride Level 101 98-107 mmol/L Carbon Dioxide Level 25 20-31 mmol/L Anion Gap 9 5-15 Blood Urea Nitrogen 13 9-23 mg/dL Creatinine 1.24 H 0.550-1.02 mg/dL Glomerular Filtration Rate Calc 42 >90 mL/min BUN/Creatinine Ratio 10.5 10.0-20.0 Serum Glucose 165 H 74-106 mg/dL Hemoglobin A1c 7.8 H <5.7 % A1C Calcium Level 9.5 8.7-10.4 mg/dL B-Type Natriuretic Peptide 1080.00 0-100 pg/mL Lipase 51 12-53 U/L PATIENT: CAMILO LIRIANO ACCT: [id number] UNIT: [id number] : 1940 LOC: ER ROOM / BED: / AGE / SEX: 85 / F ADM STATUS: REG ER SERVICE 0833 ORDERING PHYSICIAN: CHRISTINA PLEITEZ MD PROCEDURE(s): ABPL - CT AB PEL WO CON-NO ORAL OR IV REASON: colitis ORDER NUMBER(s): [id number], ACCESSION NUMBER(s): [id number] Exam: CT CT AB PEL WO CON-NO ORAL OR IV History: colitis Comparison Study: None. Technique: Multidetector spiral CT of the abdomen and pelvis was performed from lung bases to pubic symphysis. Imaging was performed without intravenous contrast. Coronal and sagittal multiplanar reformats were obtained from the axial data set by the technologist. Radiation Dose : 1. Abdomen/Pelvis: CTDIvol 12.95 mGy, DLP 3.21 mGy*cm. Findings: Motion artifact limits evaluation. Evaluation of vasculature and solid organs is limited due to lack of intravenous contrast use. Lung Bases: Cardiomegaly. Interstitial prominence. Liver: The liver is normal in size. No focal lesions. Gallbladder and Biliary Tree: The gallbladder is surgically absent. No intrahepatic or extrahepatic biliary ductal dilatation. Spleen: Unremarkable Pancreas: The pancreas is grossly unremarkable. Adrenal Glands: Unremarkable Kidneys: Kidneys are unremarkable without calculi or hydronephrosis. GI tract: The stomach is grossly normal in appearance. No evidence of small bowel wall thickening or abnormal dilatation to suggest bowel obstruction. No mucosal thickening. The appendix is visualized and demonstrates no acute inflammatory changes. Peritoneum/mesentery/retroperitoneum. There is a cystic mass in the right lower quadrant abutting the cecum measuring 14.1 X 12.9 cm. No evidence of free intraperitoneal air. No ascites. Lymph nodes: No evidence of suspicious lymphadenopathy. Abdominal Wall: Unremarkable. Vasculature: The visualized abdominal aorta is normal in size and caliber. Evaluation of abdominal and pelvic vessels is limited due to lack of intravenous contrast. There are atherosclerotic calcifications in the aorta. Urinary Bladder: Urinary bladder is distended. Pelvic Organs: Uterus and adnexal structures are unremarkable. Musculoskeletal: Limited evaluation of the bones due to motion artifact. No suspicious findings to suggest high-grade fracture. Right hip postsurgical changes. IMPRESSION: 1. Limited study due to motion artifact. 2. 14.1 cm cystic mass in the right lower quadrant. CT of the abdomen with oral and IV contrast is recommended for further evaluation. 3. No findings to suggest colitis. SEPSIS Sepsis Screen Date sepsis recognized/suspect: Apr 12, 2025 Time Sepsis recognized/suspect: 817 Recent Procedure: No On Antibiotic Therapy: No Respiratory Rate >20: No Heart Rate >90: No Temp<36 C (96.8 F) or >38.3 C: No SBP <90 or MAP <65 mmHG: No New Acute Mental Status Change: No Is the patient on CPAP, BIPAP,: No Physician Orders Urinalysis (04/12/25 08:33) Ct Ab Pel Wo Con-No Oral Or Iv (04/12/25 08:33) Allopurinol Tablet (Zyloprim Tablet) (04/13/25 10:00) Famotidine Injection (Pepcid Injection) (04/13/25 10:00) Levothyroxine Tablet (Synthroid Tablet) (04/13/25 06:00) Carvedilol Tablet (Coreg Tablet) (04/12/25 22:00) Allergies (04/12/25 13:19) Code Status (04/12/25 13:19) Sodium Chloride 0.9% (04/12/25 13:30) Oxygen Per Hour (04/12/25 13:19) Hydrocodone-Acet 5/325mg Tab ([place] 5/32 (04/12/25 13:30) Ondansetron Hcl (Zofran) (04/12/25 13:30) Docusate Sodium Capsule (Colace Capsule) (04/12/25 13:30) Fall Risk Precautions In Place QSHIFT (04/12/25 13:19) Complete Blood Count (04/13/25 04:00) Comprehensive Metabolic Panel (04/13/25 04:00) Cardiac Diet-2gna,Lofat,Lochol (04/12/25 Lunch) Condition: Serious (04/12/25 13:19) Acetaminophen Tablet (Tylenol Tablet) (04/12/25 13:30) Maintain Bed Rest (04/12/25 13:19) Sequential Compression Device (04/12/25 ) Admit (04/12/25 15:09) Nitroglycerin Sublingual (Ntrostat Subli (04/12/25 15:15) Morphine Sulfate Injection (04/12/25 15:15) Notify Of Changes From Base (04/12/25 15:09) Emergency Dysrhythmia Protocol (04/12/25 15:09) Oxygen By Nasal Cannula (04/12/25 15:09) Vital Signs Date Time Temp Pulse Resp B/P (MAP) Pulse Ox O2 Delivery O2 Flow Rate FiO2 04/12/25 13:00 98.3 94 18 90/44 (59) 97 98.3 04/12/25 08:18 99.0 90 20 114/72 99 99.0 Laboratory Tests Test 04/12/25 09:00 White Blood Count 13.4 10^3/uL (4.4-10.8) H Medications Medications Dose Ordered Sig/Carl Route Start Time Stop Time Status Last Admin Dose Admin Sodium Chloride 1,000 ml @ 60 mls/hr [id number] IV 04/12/25 13:30 04/12/25 13:30 60 MLS/HR Sodium Chloride 1,000 ml @ 1,000 mls/hr Q1H ONCE IVB 04/12/25 08:45 04/12/25 09:44 DC 04/12/25 13:13 1,000 MLS/HR Assessment/Plan Assessment/Plan Acute abdominal pain Abdominal mass Chronic kidney disease Generalized weakness Leukocytosis, unspecified Diabetes mellitus with hyperglycemia Plan 1. Admit to telemetry unit 2. Breathing treatment 3. Pain control management 4. IV antibiotic management 5. Management of fluids and electrolytes 6. Consultation for hospitalist 7. Diagnostic test abdomen/pelvis CT 8. DVT prophylaxis-on SCDs 9. Repeat labs CBC, CMP in a.m. 10. Home medication reviewed and reconciled 11. Continue with current medical management 12. Treatment plan discussed with patient and RN. Patient verbalized understanding. Plan discussed with: Patient, Other (RN) My Orders Orders - HUBER ALDRIDGE DNP Procedure Category Date Status Time Allopurinol Tablet PHA 04/13/25 In Process (Zyloprim Tablet) 10:00 Famotidine Injection PHA 04/13/25 In Process (Pepcid Injection) 10:00 Levothyroxine Tablet PHA 04/13/25 In Process (Synthroid Tablet) 06:00 Carvedilol Tablet PHA 04/12/25 In Process (Coreg Tablet) 22:00 Allergies SARKIS 04/12/25 In Process 13:19 Code Status CODE 04/12/25 Transmitted 13:19 Sodium Chloride 0.9% PHA 04/12/25 In Process 13:30 Oxygen Per Hour RT 04/12/25 Transmitted 13:19 Hydrocodone-Acet PHA 04/12/25 In Process 5/325mg Tab ([place] 13:30 Ondansetron Hcl PHA 04/12/25 In Process (Zofran) 13:30 Docusate Sodium PHA 04/12/25 In Process Capsule (Colace 13:30 Fall Risk Precautions SARKIS 04/12/[address] 13:19 Complete Blood Count LAB 04/13/25 Verified 04:00 Comprehensive LAB 04/13/25 Verified Metabolic Panel 04:00 Cardiac DIET 04/12/25 Transmitted Diet-2gna,Lofat,Lochol Lunch Condition: Serious SARKIS 04/12/25 In Process 13:19 Acetaminophen Tablet PHA 04/12/25 In Process (Tylenol Tablet) 13:30 Maintain Bed Rest SARKIS 04/12/25 In Process 13:19 Sequential SARKIS 04/12/25 In Process Compression Device Admit ADMIT 04/12/25 Verified 15:09 Nitroglycerin PHA 04/12/25 Verified Sublingual (Ntrostat 15:15 Morphine Sulfate PHA 04/12/25 Verified Injection 15:15 Notify Md Of Changes [facility] 04/12/25 Verified From Base 15:09 Emergency Dysrhythmia [facility] 04/12/25 Verified Protocol 15:09 Oxygen By Nasal RT 04/12/25 Verified Cannula 15:09 Problem List: (1) Acute abdominal pain (2) Abdominal mass (3) Chronic kidney disease (4) Generalized weakness (5) Leukocytosis, unspecified (6) Diabetes mellitus with hyperglycemia Date of Service: Apr 12, 2025 Billing Provider: HUBER ALDRIDGE DNP Common Visit Codes: [id number] INP/OBS CARE (HIGH) HUBER ALDRIDGE DNP Apr 12, 2025 15:10
[2025-04-12] MEDS ORDERED: MORPHINE SULFATE INJ 2 MG/ml SYRG IV PRN (15:15)
[2025-04-12] MEDS ORDERED: NITROGLYCERIN 0.4 MG SL TAB SL PRN (15:15)
[2025-04-12 16:36] LABS: Urine Budding Yeast OCCASIONAL /hpf (None Seen); Urine Protein, UAD Negative (Negative)
[2025-04-12] MEDS: HYDROCORTISONE ACET 25 MG RECTAL SUPP PR ONE (17:15)
[2025-04-12] MEDS ORDERED: DEXTROSE (50%) 50ML SYRG IV PRN (18:00)
[2025-04-12 18:05] VITALS: BP 118/98; PULSE 82; RESP 18; TEMP 98.5; O2SAT 99
--- NOTE | 2025-04-12 18:23 | DVH ---
EXAM: XY CHEST PORTABLE Indication: CHF Technique: Single frontal view of the chest was obtained Comparison: XY CHEST PORTABLE on DOS: 03/09/25, XY CHEST PORTABLE on DOS: 03/06/25, XY CHEST PORTABLE o n DOS: 02/28/25, CT CHEST WITHOUT CONTRAST on DOS: 02/26/25, XY CHEST PORTABLE on DOS: 02/26/25 FINDINGS: Lines and Tubes: None Lungs: Pulmonary vascular congestion. Pleura: Possible trace left pleural effusion. No pneumothorax. Cardiomediastinal contours: Cardiomegaly. Bones: No acute osseous abnormality. IMPRESSION: Cardiomegaly with pulmonary edema. Possible trace left pleural effusion.
[2025-04-12 18:30] VITALS: RESP 18
[2025-04-12 20:00] VITALS: PULSE 98; RESP 18; O2SAT 99
[2025-04-12] MEDS: InsuLIN REG 1unit/0.01ml Soln (100units/ml) SC SCH (20:00)
[2025-04-12] MEDS: ACCU-CHEK COMFORT CURVE STRIP VI SCH (20:00)
--- NOTE | 2025-04-12 20:32 | DVH ---
ULTRASOUND OF THE PELVIS (NON-OB) FEMALE INDICATION: OVARIAN CYST. A2 COMPARISON: None TECHNIQUE AND FINDINGS: Transabdominal Ultrasound: Transabdominal ultrasound examination was performed. Endovaginal Ultrasound: Not performed UTERUS: The uterus measures 6.7 x 2.2 x 1.7 cm. No focal uterine abnormality is seen. The endometria l stripe is 3 mm in thickness, within normal limits. RIGHT OVARY: The right ovary is not seen. There is a complex cystic structure in the right adnexa wit h some dependent debris measuring approximately 9.8 x 13.5 x 16.2 cm. No significant vascular compone nt is identified on color Doppler imaging. LEFT OVARY: The left ovary is not seen. CUL de SAC: No free fluid is identified in the cul-de-sac. IMPRESSION: Large right adnexal cyst with internal debris and no significant vascular component. This may be of o varian origin although neither ovary is visualized on this study.
[2025-04-12] MEDS: BUMETANIDE 1mg/4ml VIAL (0.25mg/ml) IV SCH (20:44)
[2025-04-12 21:00] VITALS: BP 128/68; PULSE 98; RESP 18; TEMP 101.2; O2SAT 99
[2025-04-12] MEDS: HYDROCORTISONE ACET 25 MG RECTAL SUPP PR SCH (21:12)
[2025-04-12] MEDS: CARVEDILOL 3.125 MG TAB PO SCH (21:12)
[2025-04-12] MEDS: ERTAPENEM SOD INJ 1 GM in SODIUM CHL 0.9% 50 ML IV ONE (21:55)
[2025-04-12 23:35] VITALS: PULSE 98; RESP 18; TEMP 98.5; O2SAT 93
[2025-04-13] VITALS (7 sets, daily range): BP systolic 99–117; BP diastolic 51–71; PULSE 84–111; RESP 16–20; TEMP 97.6–98.9; O2SAT 97–100
[2025-04-13] MEDS: LEVOTHYROXINE SODIUM 25 MCG TAB PO SCH (06:17)
[2025-04-13 06:40] LABS: Hematocrit 38.4 % (36.0-46.0); Hemoglobin 12.3 g/dL (12.2-16.2); Mean Corpuscular Hemoglobin 26.4 pg (28.0-32.0); Mean Corpuscular Volume 82.7 fL (80.0-100.0); Nucleated Red Blood Cells % 0.0 %
[2025-04-13 07:10] LABS: Alanine Aminotransferase 10 U/L (7-40); Albumin 4.0 g/dL (3.2-4.8); Alkaline Phosphatase 75 U/L (46-116); Anion Gap 12 (5-15); BUN/Creatinine Ratio 13.5 (10.0-20.0); Bilirubin, Total 0.8 mg/dL (0.2-1.0); Blood Urea Nitrogen 17 mg/dL (9-23); Calcium 8.9 mg/dL (8.7-10.4); Carbon Dioxide 23 mmol/L (20-31); Chloride 103 mmol/L (98-107); Potassium 4.1 mmol/L (3.5-5.1); Sodium 138 mmol/L (136-145); Total Protein 6.2 g/dL (5.7-8.2)
[2025-04-13 07:11] LABS: Glucose 110 mg/dL (74-106)
[2025-04-13] MEDS: FAMOTIDINE (10MG/ML) 2ML VL IV SCH (08:51)
[2025-04-13] MEDS: CYCLOBENZAPRINE HCL 10 MG TAB PO ONE (10:00)
[2025-04-13] MEDS ORDERED: DEXTROSE (50%) 50ML SYRG IV PRN (10:00)
--- NOTE | 2025-04-13 10:06 | DVHPN2 ---
Progress Note Date Seen: Apr 13, 2025 Medical Necessity Reason Pt with a Central, PICC or Fol: No Subjective Patient reports: No new complaints Review of Systems: HEENT:Normal, CVS:Normal, RESPIRATORY:Normal, GI:Normal, :Normal, MSK:Normal, NEURO:Normal Objective vital signs Vital Sign Date Time Temp Pulse Resp B/P (MAP) Pulse Ox O2 Delivery O2 Flow Rate FiO2 04/13/25 08:40 97.6 90 16 117/68 (84) 97 97.6 04/12/25 23:35 Nasal Cannula* 3 32 Total Intake and Output 04/12/25 04/12/25 04/13/25 15:00 23:00 07:00 Intake Total 1060 ml 200 ml 800 ml Balance 1060 ml 200 ml 800 ml medications Current Medications Medications Dose Ordered Sig/Carl Route Start Time Stop Time Status Last Admin Dose Admin Allopurinol 100 mg DAILY PO 04/13/25 10:00 Famotidine 20 mg DAILY IV 04/13/25 10:00 04/13/25 08:51 20 MG Levothyroxine Sodium 75 mcg QAM@0600 PO 04/13/25 06:00 04/13/25 06:17 75 MCG Carvedilol 3.125 mg Q12HR PO 04/12/25 22:00 Ondansetron HCl 4 mg Q4HP PRN IV 04/12/25 13:30 Acetaminophen 650 mg Q6HP PRN PO 04/12/25 13:30 Ertapenem 0.5 gm/ Sodium Chloride 50 ml @ 100 mls/hr DAILY IV 04/13/25 10:00 Hydrocortisone Acetate [address] 04/12/25 22:00 04/12/25 21:12 25 MG Diagnostic Test (Pha) 1 strip IQ4HR 04/12/25 20:00 04/13/25 08:00 1 STRIP Insulin Human Regular IQ4HR SC 04/12/25 20:00 04/12/25 20:00 2 UNITS Dextrose 50 ml UD PRN IV 04/12/25 18:00 Bumetanide 1 mg BIDD IV 04/12/25 18:00 04/13/25 06:24 1 MG Cyclobenzaprine HCl 5 mg ONCE PRN PO 04/13/25 10:00 UNV Examination: GENERAL:Normal, HEENT:Normal, NECK:Normal, LUNGS:Normal, CVS:Normal, ABDOMEN:Normal, ABDOMEN:Abnormal (right abd tenderness), MSK:Normal, SKIN:Normal, NEURO:Normal, :Normal laboratory and microbiology Laboratory Tests 04/13/25 05:05 Test 04/13/25 05:05 Range/Units Serum Glucose 110 H 74-106 mg/dL Problem List/Assessment/Plan Problem List/Assessment/Plan #1 sepsis with uti: iv invanz #2 abd pain with large ovarian cyst: obgyn consult #3 chronic systolic heart failure #4 dm: ssi #5 hypothyroidism #6 gout #7 ckd stage 3 advance care planning- dnr- time spent 18 mins Plan discussed with: Patient, Daughter My Orders My Orders Orders - DELLA KENNY MD Procedure Category Date Status Time Pelvic US 04/12/25 Resulted 17:08 Urine Bacterial MEGHAN 04/12/25 In Process Culture 17:08 Ertapenem Sod Inj PHA 04/13/25 In Process (Invanz) 10:00 Chest Portable XY 04/12/25 Resulted 17:08 Hydrocortisone PHA 04/12/25 In Process Suppository 22:00 Cancer Antigen (Ca) LAB 04/12/25 In Process 125 17:12 Cyclobenzaprine PHA 04/13/25 Logged Tablet (Flexeril 10:00 Communication Order ORDERS 04/13/25 Transmitted 10:00 Glucose Blood PHA 04/13/25 Verified (Accu-Chek Comfort 11:30 Mild Sliding Scale PHA 04/13/25 Verified 11:30 Dextrose 50% Syringe PHA 04/13/25 Verified 10:00 Basic Metabolic Panel LAB 04/14/25 Verified 06:00 Complete Blood Count LAB 04/14/25 Verified 06:00 Date of Service: Apr 13, 2025 Billing Provider: DELLA KENNY MD Common Visit Codes: [id number] INP/OBS CARE(HIGH) Secondary Visit Codes: [id number] CARE PLAN 30 MINUTES DELLA KENNY MD Apr 13, 2025 10:06
[2025-04-13] MEDS: ERTAPENEM SOD INJ 0.5 GM in SODIUM CHL 0.9% 50 ML IV SCH ×2 (11:00→21:48)
[2025-04-13] MEDS: ALLOPURINOL 100 MG TAB PO SCH (11:06)
[2025-04-13] MEDS: EMPAGLIFLOZIN 10 MG TAB PO SCH (11:06)
[2025-04-13] MEDS: ACCU-CHEK COMFORT CURVE STRIP VI SCH (11:21)
[2025-04-13] MEDS: InsuLIN REG 1unit/0.01ml Soln (100units/ml) SC SCH (11:21)
--- NOTE | 2025-04-13 13:43 | DVHINCON2 ---
Date of service: Apr 13, 2025 Referring Physician hospitalist Reason for Consultation r ovarian mass History of Present Illness pt is admitted for acute abd pain with sono findings of [id number] mass pt has no postmenopausal bleeding or discharge.her last pap was many yrs ago . her ca125 is pending .per pt "s family the ovarian mass has enlarged since january Past Medical History chf,ckd,,afib,thyroid ds,htn Past Surgical History choleycystectomy Family History na Social History 9 and 2 sab Patient Family History: Cardiovascular disease G8 SISTER, Diabetes mellitus G8 BROTHER, G8 BROTHER, G8 BROTHER, Hypertension G8 MOTHER, G8 FATHER, Allergies: Coded Allergies: Penicillins (Verified Allergy, Severe, 07/14/13) Morphine (Verified Allergy, Intermediate, RASHES , 04/12/25) Home Meds Active Scripts Empagliflozin (Jardiance) 10 Mg Tab, 10 MG PO QAM for 30 Days, #30 TAB 2 Refills Prov:DELLA KENNY MD 05/08/23 Reported Medications Cholecalciferol (VITAMIN D3) 5,000 Unit Cap, 1 CAP PO DAILY for 90 Days, #90 04/13/25 Bumetanide (Bumetanide) 0.5 Mg Tab, 1 TAB PO DAILY for 90 Days, #90 04/13/25 Ciprofloxacin Hydrochloride (Ciprofloxacin HCl) 250 Mg Tab, 1 TAB PO DAILY for 90 Days, #90 04/13/25 Pantoprazole Sodium Sesquihydr (Pantoprazole Sodium) 40 Mg Tab, 20 MG PO DAILY, TAB 02/24/25 Allopurinol (Allopurinol) 100 Mg Tab, 100 MG PO DAILY, TAB 02/24/25 Docusate Sodium (Docusate Sodium) 100 Mg Cap, 1 CAP PO BID 02/24/25 Levothyroxine Sodium (Levothyroxine Sodium) 75 Mcg Tab, 1 TAB PO DAILY 02/24/25 Metoprolol Succinate (Metoprolol Succinate Er) 25 Mg Tab, 1 TAB PO DAILY 02/24/25 Spironolactone (Spironolactone) 25 Mg Tab, 1 TAB PO DAILY 02/24/25 Current Medications Current Medications Medications (Trade) Dose Ordered Sig/Carl Route PRN Reason Start Time Stop Time Status Last Admin Allopurinol (Zyloprim Tablet) 100 mg DAILY PO 8/27/25 10:00 04/13/25 11:06 Famotidine (Pepcid Injection) 20 mg DAILY IV 04/13/25 10:00 04/13/25 08:51 Levothyroxine Sodium (Synthroid Tablet) 75 mcg QAM@0600 PO 04/13/25 06:00 04/13/25 06:17 Carvedilol (Coreg Tablet) 3.125 mg Q12HR PO 04/12/25 22:00 04/13/25 10:03 DC Nitroglycerin (Ntrostat Sublingual) 0.4 mg Q5MINP PRN SL FOR CHEST PAIN 04/12/25 15:15 04/13/25 06:53 DC Morphine Sulfate 2 mg Q30M PRN IV FOR CHEST PAIN 04/12/25 15:15 04/13/25 06:53 DC Ertapenem 0.5 gm/ Sodium Chloride 50 ml @ 100 mls/hr DAILY IV 04/13/25 10:00 04/13/25 11:02 DC Hydrocortisone Acetate (Anucort-Hc Suppository) 25 mg Q12HR UT 04/12/25 22:00 04/13/25 11:28 Diagnostic Test (Pha) (Accu-Chek Comfort Curve T) 1 strip IQ4HR 04/12/25 20:00 04/13/25 10:03 DC 04/13/25 08:00 Insulin Human Regular (InsuLIN R) IQ4HR SC 04/12/25 20:00 04/13/25 10:04 DC 04/12/25 20:00 Dextrose 50 ml UD PRN IV Blood Sugar LESS THAN 60 04/12/25 18:00 04/13/25 10:51 DC Bumetanide (Bumex Injection) 1 mg BIDD IV 04/12/25 18:00 04/13/25 10:03 DC 04/13/25 06:24 Diagnostic Test (Pha) (Accu-Chek Comfort Curve T) 1 strip ACHS 04/13/25 11:30 04/13/25 11:21 Insulin Human Regular (InsuLIN R) ACHS SC 04/13/25 11:30 Dextrose 50 ml UD PRN IV Blood Sugar LESS THAN 60 04/13/25 10:00 Empaglifozin (Jardiance) 10 mg DAILY PO 04/13/25 10:00 04/13/25 11:06 Ertapenem 0.5 gm/ Sodium Chloride 50 ml @ 100 mls/hr DAILY@2200 IV 04/13/25 22:00 Docusate Sodium (Colace Capsule) 100 mg BID PO 04/13/25 22:00 UNV Review of Systems Constitutional: no fever, chill, weight loss HEENT: no eye pain, no hearing loss, no oral lesion, no scleral icterus Heart: no chest pain, no chest pressure Lung: no cough, no dyspnea with exertion Abdomen: see HPI : no pain with urination, normal appearing urine Musculoskeletal: no joint pain, no muscle pain Neurological: no seizure, no loss of sensation, no weakness in extremities Pysch: no depression, no anxiety Derm: no rash, no jaundice Vital Signs Vital Signs Date Time Temp Pulse Resp B/P (MAP) Pulse Ox O2 Delivery O2 Flow Rate FiO2 04/13/25 12:48 97.9 99 19 117/63 (81) 99 97.9 04/13/25 08:30 Nasal Cannula* 2 28 Physical Exam alert and awake breasts symmetrical,no masses NECK: nl] CARDIAC: [irreg rythm] PULMONARY: [cta ] ABDOMEN: [obese,no rigidity,rlq to mid abd tenderness,vbol guarding,palap mass] pelvic- refused exam Labs/Diagnostic Data Labs Test 04/13/25 11:08 04/13/25 05:05 04/12/25 14:55 04/12/25 09:00 Range/Units POC Glucose 182 H 70-106 mg/dl White Blood Count 16.7 H 4.4-10.8 10^3/uL Red Blood Count 4.64 4.0-5.20 10^6/uL Hemoglobin 12.3 12.2-16.2 g/dL Hematocrit 38.4 # 36.0-46.0 % Mean Corpuscular Volume 82.7 80.0-100.0 fL Mean Corpuscular Hemoglobin 26.4 L 28.0-32.0 pg Mean Corpuscular Hemoglobin Concent 31.9 L 32.0-36.0 g/dL Red Cell Distribution Width 16.2 H 11.8-14.3 % Platelet Count 287 140-450 10^3/uL Mean Platelet Volume 7.7 6.9-10.8 fL Neutrophils (%) (Auto) 76.2 37.0-80.0 % Lymphocytes (%) (Auto) 14.3 10.0-50.0 % Monocytes (%) (Auto) 9.4 0.0-12.0 % Eosinophils (%) (Auto) 0.0 0.0-7.0 % Basophils (%) (Auto) 0.1 0.0-2.0 % Neutrophils # (Auto) 12.7 H 1.6-8.6 10 ^3/uL Lymphocytes # (Auto) 2.4 0.4-5.4 10 ^3/uL Monocytes # (Auto) 1.6 H 0-1.3 10 ^3/uL Eosinophils # (Auto) 0 0-0.8 10 ^3/uL Basophils # (Auto) 0 0-0.2 10 ^3/uL Nucleated Red Blood Cells 0.0 % Sodium Level 138 136-145 mmol/L Potassium Level 4.1 3.5-5.1 mmol/L Chloride Level 103 98-107 mmol/L Carbon Dioxide Level 23 20-31 mmol/L Anion Gap 12 5-15 Blood Urea Nitrogen 17 9-23 mg/dL Creatinine 1.26 H 0.550-1.02 mg/dL Glomerular Filtration Rate Calc 41 >90 mL/min BUN/Creatinine Ratio 13.5 10.0-20.0 Serum Glucose 110 H 74-106 mg/dL Calcium Level 8.9 8.7-10.4 mg/dL Total Bilirubin 0.8 0.2-1.0 mg/dL Aspartate Amino Transferase (AST) 12 L 13-40 U/L Alanine Aminotransferase (ALT) 10 7-40 U/L Alkaline Phosphatase 75 46-116 U/L Total Protein 6.2 5.7-8.2 g/dL Albumin 4.0 3.2-4.8 g/dL Urine Color Colorless Yellow Urine Clarity Clear Clear Urine pH 6.5 5.0-9.0 Urine Specific [place] 1.007 1.001-1.035 Urine Protein Negative Negative Urine Ketones Negative Negative Urine Blood Trace H Negative /uL Urine Nitrite Negative Negative Urine Bilirubin Negative Negative Urine Urobilinogen Normal Negative mg/dL Urine Leukocyte Esterase 3+ Negative /uL Urine RBC <1 0 - 4 /hpf Urine Microscopic WBC 8 H 0-5 /HPF Urine Squamous Epithelial Cells Few <5 /hpf Urine Bacteria Few H None Seen /hpf Urine Yeast (Budding) Occasional None Seen /hpf Urine Glucose 4+ H Normal mg/dL Hemoglobin A1c 7.8 H <5.7 % A1C B-Type Natriuretic Peptide 1080.00 0-100 pg/mL Lipase 51 12-53 U/L Primary Diagnosis acute abd pain due to ovarian mass 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
[2025-04-13] MEDS: BISACODYL 5 MG EC TAB PO ONE (14:19)
[2025-04-13] MEDS: DOCUSATE SOD 100 MG CAP PO ONE (14:19)
[2025-04-13] MEDS: DOCUSATE SOD 100 MG CAP PO SCH (21:47)
[2025-04-14] VITALS (9 sets, daily range): BP systolic 110–126; BP diastolic 56–83; PULSE 61–113; RESP 18–22; TEMP 98–99.1; O2SAT 92–100
[2025-04-14 06:25] LABS: Hematocrit 41.3 % (36.0-46.0); Hemoglobin 13.6 g/dL (12.2-16.2); Mean Corpuscular Hemoglobin 27.2 pg (28.0-32.0); Mean Corpuscular Volume 82.6 fL (80.0-100.0); Nucleated Red Blood Cells % 0.0 %
[2025-04-14 06:44] LABS: INR 1.13 (0.9-1.15); Partial Thromboplastin Time 32.8 SEC (24.5-34.5); Prothrombin Time 11.8 sec (9.3-11.8)
[2025-04-14 06:45] LABS: Anion Gap 13 (5-15); Carbon Dioxide 23 mmol/L (20-31); Chloride 100 mmol/L (98-107); Potassium 4.0 mmol/L (3.5-5.1)
[2025-04-14 06:46] LABS: Calcium 9.5 mg/dL (8.7-10.4); Sodium 136 mmol/L (136-145)
[2025-04-14 06:51] LABS: BUN/Creatinine Ratio 16.4 (10.0-20.0); Glucose 153 mg/dL (74-106)
[2025-04-14 06:52] LABS: Blood Urea Nitrogen 23 mg/dL (9-23)
[2025-04-14] MEDS: BISACODYL 5 MG EC TAB PO ONE (09:40)
--- NOTE | 2025-04-14 10:27 | DVHPN2 ---
Progress Note Date Seen: Apr 14, 2025 Medical Necessity Reason Pt with a Central, PICC or Fol: No Subjective Patient reports: No new complaints Review of Systems: HEENT:Normal, CVS:Normal, RESPIRATORY:Normal, GI:Normal, :Normal, MSK:Normal, NEURO:Normal Objective vital signs Vital Sign Date Time Temp Pulse Resp B/P (MAP) Pulse Ox O2 Delivery O2 Flow Rate FiO2 04/14/25 08:36 107 19 113/67 (82) 100 04/14/25 05:00 98.3 98.3 04/13/25 20:00 Nasal Cannula* 2 28 Total Intake and Output 04/13/25 04/13/25 04/14/25 15:00 23:00 07:00 Intake Total 300 ml 250 ml Balance 300 ml 250 ml medications Current Medications Medications Dose Ordered Sig/Carl Route Start Time Stop Time Status Last Admin Dose Admin Allopurinol 100 mg DAILY PO 04/13/25 10:00 04/14/25 09:40 100 MG Famotidine 20 mg DAILY IV 04/13/25 10:00 04/14/25 09:40 20 MG Levothyroxine Sodium 75 mcg QAM@0600 PO 04/13/25 06:00 04/14/25 06:11 75 MCG Ondansetron HCl 4 mg Q4HP PRN IV 04/12/25 13:30 Acetaminophen 650 mg Q6HP PRN PO 04/12/25 13:30 Hydrocortisone Acetate 25 mg Q12HR GA 04/12/25 22:00 04/14/25 09:41 25 MG Diagnostic Test (Pha) 1 strip ACHS 04/13/25 11:30 04/14/25 06:25 1 STRIP Insulin Human Regular ACHS SC 04/13/25 11:30 Dextrose 50 ml UD PRN IV 04/13/25 10:00 Empaglifozin 10 mg DAILY PO 04/13/25 10:00 04/14/25 09:39 10 MG Ertapenem 0.5 gm/ Sodium Chloride 50 ml @ 100 mls/hr DAILY@2200 IV 04/13/25 22:00 04/13/25 21:48 100 MLS/HR Docusate Sodium 100 mg BID PO 04/13/25 22:00 04/14/25 09:39 100 MG Examination: GENERAL:Normal, HEENT:Normal, NECK:Normal, LUNGS:Normal, CVS:Normal, ABDOMEN:Normal, MSK:Normal, SKIN:Normal, NEURO:Normal, :Normal laboratory and microbiology Laboratory Tests 04/14/25 04:44 Test 04/14/25 04:44 Range/Units Serum Glucose 153 H 74-106 mg/dL Microbiology Date/Time Source Procedure Growth Status 04/12/25 17:20 Voided Urine Urine Culture - Preliminary Resulted Problem List/Assessment/Plan Problem List/Assessment/Plan #1 sepsis with uti: iv meropenem #2 abd pain with large ovarian cyst: obgyn consult #3 chronic systolic heart failure #4 dm: ssi #5 hypothyroidism #6 gout #7 ckd stage 3 advance care planning- dnr- time spent 18 mins Plan discussed with: Patient, Daughter My Orders My Orders Orders - DELLA KENNY MD Procedure Category Date Status Time Ertapenem Sod Inj PHA 04/13/25 In Process (Invanz) 22:00 Docusate Sodium PHA 04/13/25 In Process Capsule (Colace 22:00 Meropenem 1gm Ivpb X PHA 04/14/25 Verified ONE 10:30 Date of Service: Apr 14, 2025 Billing Provider: DELLA KENNY MD Common Visit Codes: [id number] INP/OBS CARE(HIGH) DELLA KENNY MD Apr 14, 2025 10:27
[2025-04-14] MEDS ORDERED: IPRATROPIUM BROM 0.5 MG/2.5ML INH SOL NEB ONE (14:00)
[2025-04-14] MEDS: IPRATROPIUM BROM 0.5 MG/2.5ML INH SOL ONE (14:12)
--- NOTE | 2025-04-14 14:30 | DVH ---
CHEST RADIOGRAPH Indication: Breathing changes Technique: Single frontal view of the chest was obtained COMPARISON: XY CHEST PORTABLE on DOS: 04/12/25, XY CHEST PORTABLE on DOS: 03/09/25, XY CHEST PORTABLE o n DOS: 03/06/25, XY CHEST PORTABLE on DOS: 02/28/25, CT CHEST WITHOUT CONTRAST on DOS: 02/26/25 FINDINGS: Lines and Tubes: None Lungs: Congestion Pleura: No effusion. No pneumothorax. Cardiomediastinal contours: Cardiomegaly. Bones: Unremarkable IMPRESSION: Increased interstital prominence. This may represent pulmonary vascular congestion and/or viral pneum onia. Clinical correlation advised.
[2025-04-14] MEDS: MEROPENEM 1GM IVPB 50 ML IV ONE (15:30)
[2025-04-14] MEDS: CYANOCOBALAMIN (B-12) 1000 MCG/1 ML VIAL SUBCUT ONE (15:30)
[2025-04-14] MEDS: BUMETANIDE 1mg/4ml VIAL (0.25mg/ml) IV ONE (15:45)
[2025-04-14 15:59] LABS: Urine Protein, UAD Negative (Negative)
--- NOTE | 2025-04-14 16:12 | DVH ---
ABDOMEN, (KUB) ONE VIEW REASON FOR EXAM: ABD PAIN COMPARISON: CT abdomen/ pelvis 04/12/2025 TECHNIQUE: A single view of the abdomen is obtained. FINDINGS: There are several mildly distended loops of small bowel , increased compared with the rece nt CT it application administrator image. Bowel loops are displaced leftward by the known cystic mass in the right abdomen a nd pelvis. There is no supine evidence of pneumoperitoneum. The colonic stool burden is small. Surgi filipe clips project over the right upper quadrant, likely from prior cholecystectomy. No acute osseous abnormality is identified. IMPRESSION: Leftward displacement of bowel loops by the known right abdominopelvic cystic mass. Increasing distention of small-bowel loops in the mid and left abdomen. This appearance is nonspecifi c but could represent early small bowel obstruction or ileus.
--- NOTE | 2025-04-14 17:49 | DVH ---
EXAM DESCRIPTION: CT CT AB PEL WO CON-NO ORAL OR IV CLINICAL HISTORY: abd distension COMPARISON: US PELVIC on DOS: 04/12/25, CT CT AB PEL WO CON-NO ORAL OR IV on DOS: 04/12/25, ECIDC on DO S: 11/15/21 TECHNIQUE: CT abdomen and pelvis without IV contrast was performed. Coronal and sagittal MPR images were generat ed.CTDI/ DLP = 11.18 / 551.94 Dose reduction technique with one or more of the following methods was performed: Automated exposure control, adjustment of the mA and/or kV according to patient size, use of iterative reconstruction te chnique FINDINGS: Lower chest: Bibasilar subsegmental atelectasis. Cardiomegaly. Coronary artery calcifications. Liver: Homogenous in attenuation. . Biliary: Status post cholecystectomy. No biliary ductal dilatation. Pancreas: No fat stranding or focal lesion. Spleen: Normal in size.. Adrenal glands: No nodularity. No nodularity Kidneys: No nephrolithiasis. No hydroureteronephrosis. . Bladder: Decompressed via Dang catheter. Reproductive organs: Redemonstration of a 15.2 x 13.1 x 14.6 cm cystic/solid right adnexal mass. Bowel: Mildly dilated small bowel loops with air fluid levels. Possible transition point at the dista l small bowel as it courses near the right adnexal mass. The distal ileum appears normal in caliber. The large bowel appears normal in caliber. . Peritoneum: No free fluid. No free air. Vessels: Normal caliber abdominal aorta. Severe atherosclerotic calcifications.. Lymph nodes: No suspicious lymph nodes. Soft tissues: Unremarkable. . Osseous structures: No acute fracture or subluxation. No suspicious osseous lesions. Degenerative c hanges of the visualized thoracolumbar spine. IMPRESSION: 1. Findings suspicious for partial small bowel obstruction versus ileus. Possible transition point at the distal small bowel as it courses near the right adnexal mass. 2. Redemonstration of a 15.2 cm cystic / solid right adnexal mass, suspicious for cystic ovarian neop lasm. 3. Severe atherosclerotic vascular disease. Coronary artery disease.
--- NOTE | 2025-04-14 19:48 | DVH ---
EXAM: XY CHEST PORTABLE TECHNIQUE: Single frontal chest radiograph CLINICAL HISTORY: NG TUBE PLACEMENT COMPARISON: XY CHEST PORTABLE on DOS: 04/14/25, XY CHEST PORTABLE on DOS: 04/12/25, XY CHEST PORTABLE o n DOS: 03/09/25 Findings/Impression: Frontal chest radiograph demonstrates no acute osseous or superficial soft tissue abnormalities. Enteric tube is overlying the plane of the stomach. The trachea is midline. Cardiomegaly. No pneumothorax, pleural effusions, or consolidations.
[2025-04-15] VITALS (8 sets, daily range): BP systolic 119–129; BP diastolic 67–84; PULSE 101–112; RESP 18–20; TEMP 97.6–98.5; O2SAT 93–100
[2025-04-15] MEDS: MELATONIN 5 MG TAB NG ONE (01:48)
[2025-04-15] MEDS: MEROPENEM 1GM IVPB 50 ML IV SCH (02:51)
[2025-04-15 06:11] LABS: Hemoglobin 13.2 g/dL (12.2-16.2); Nucleated Red Blood Cells % 0.0 %
[2025-04-15 06:14] LABS: Hematocrit 40.0 % (36.0-46.0); Mean Corpuscular Hemoglobin 27.1 pg (28.0-32.0); Mean Corpuscular Volume 81.9 fL (80.0-100.0)
[2025-04-15 06:28] LABS: Anion Gap 15 (5-15); Carbon Dioxide 23 mmol/L (20-31); Chloride 98 mmol/L (98-107); Potassium 4.0 mmol/L (3.5-5.1)
[2025-04-15 06:29] LABS: Calcium 9.9 mg/dL (8.7-10.4)
[2025-04-15 06:34] LABS: BUN/Creatinine Ratio 20.0 (10.0-20.0)
[2025-04-15 06:35] LABS: Blood Urea Nitrogen 30 mg/dL (9-23); Glucose 165 mg/dL (74-106); Sodium 136 mmol/L (136-145)
[2025-04-15] MEDS: BUMETANIDE 1 MG TAB PO SCH (10:00)
[2025-04-15] MEDS: GASTROGRAFIN 120 ML SOL ONE (10:15)
--- NOTE | 2025-04-15 14:29 | DVHPN2 ---
Chief Complaints Patient reports: No new complaints, Feels worse Nursing reports: Other (c/o distended abdomen) Objective Vitals Vital Signs Date Time Temp Pulse Resp B/P (MAP) Pulse Ox O2 Delivery O2 Flow Rate FiO2 04/15/25 12:44 97.6 104 20 120/67 (84) 97 97.6 04/15/25 09:30 Nasal Cannula 2.0 04/15/25 09:30 28 Medications Current Medications Medications (Trade) Dose Ordered Sig/Carl Route PRN Reason Start Time Stop Time Status Last Admin Bumetanide (Bumex Tablet) 1 mg DAILY PO 04/15/25 10:00 Meropenem 50 ml @ 17 mls/hr Q12H IV 04/15/25 14:00 Abdominal: Distended Studies Laboratory Tests 04/15/25 05:18 Test 04/15/25 05:18 Range/Units Serum Glucose 165 H 74-106 mg/dL Ass/Plan Assessment ovarian mass Plan pt is being worked up for bowel obstruction,daughter states she cant undergo any surgery dr bean is by bedside recommending hospice.pt is misreable with ng tube.daughter is considering hospice Visit Coding OBGYN Date of Service: Apr 15, 2025 Billing Provider: AGUSTIN LARSEN DO DRIVER ENGINEER Common Visit Codes: [id number] OBS CARE (HIGH), 69011-NQA/OBS SAME DATE (LOW) [employer]IVER ENGINEER Consultation Codes: [id number] CONSULT <20MIN AGUSTIN LARSEN DO Apr 15, 2025 14:29
[2025-04-15] MEDS: MEROPENEM 500MG IVPB 50 ML IV SCH (15:32)
--- NOTE | 2025-04-15 15:51 | DVHINCON2 ---
Date of service: Apr 15, 2025 History of Present Illness 85-year-old female with a history of multiple medical problems including severe CHF with the ejection fraction of 10% and atrial fibrillation admitted secondary to acute onset of abdominal pain. Patient had a known large cystic ovarian mass in the right lower quadrant but was told that she is not a surgical candidate due to her poor cardiac condition. Imaging study on admission showed possible small bowel obstruction. Past Medical History Hypothyroidism. CHF. Atrial fibrillation. Hypertension. Past Surgical History Cholecystectomy Family History: Cardiovascular disease G8 SISTER, Diabetes mellitus G8 BROTHER, G8 BROTHER, G8 BROTHER, Hypertension G8 MOTHER, G8 FATHER, Family History Noncontributory Social History No alcohol, tobacco, IV drug use Allergies: Coded Allergies: Penicillins (Verified Allergy, Severe, 07/14/13) Morphine (Verified Allergy, Intermediate, RASHES , 04/12/25) Home Meds Active Scripts Empagliflozin (Jardiance) 10 Mg Tab, 10 MG PO QAM for 30 Days, #30 TAB 2 Refills Prov:DELLA KENNY MD 05/08/23 Reported Medications Cholecalciferol (VITAMIN D3) 5,000 Unit Cap, 1 CAP PO DAILY for 90 Days, #90 04/13/25 Bumetanide (Bumetanide) 0.5 Mg Tab, 1 TAB PO DAILY for 90 Days, #90 04/13/25 Ciprofloxacin Hydrochloride (Ciprofloxacin HCl) 250 Mg Tab, 1 TAB PO DAILY for 90 Days, #90 04/13/25 Pantoprazole Sodium Sesquihydr (Pantoprazole Sodium) 40 Mg Tab, 20 MG PO DAILY, TAB 02/24/25 Allopurinol (Allopurinol) 100 Mg Tab, 100 MG PO DAILY, TAB 02/24/25 Docusate Sodium (Docusate Sodium) 100 Mg Cap, 1 CAP PO BID 02/24/25 Levothyroxine Sodium (Levothyroxine Sodium) 75 Mcg Tab, 1 TAB PO DAILY 02/24/25 Metoprolol Succinate (Metoprolol Succinate Er) 25 Mg Tab, 1 TAB PO DAILY 02/24/25 Spironolactone (Spironolactone) 25 Mg Tab, 1 TAB PO DAILY 02/24/25 Current Medications Current Medications Medications (Trade) Dose Ordered Sig/Carl Route PRN Reason Start Time Stop Time Status Last Admin Meropenem 50 ml @ 17 mls/hr Q12H IV 04/15/25 02:00 04/15/25 14:08 DC 04/15/25 02:51 Bumetanide (Bumex Tablet) 1 mg DAILY PO 04/15/25 10:00 Meropenem 50 ml @ 17 mls/hr Q12H IV 04/15/25 14:00 04/15/25 15:32 Vital Signs Vital Signs Date Time Temp Pulse Resp B/P (MAP) Pulse Ox O2 Delivery O2 Flow Rate FiO2 04/15/25 12:44 97.6 104 20 120/67 (84) 97 97.6 04/15/25 09:30 Nasal Cannula 2.0 04/15/25 09:30 28 Physical Exam GEN: Elderly female lethargic. HEENT: Normocephalic atraumatic. Moist mucous membranes. Anicteric sclerae. There is an NG tube to low intermittent suction. CV: RRR Respiratory: Coarse breath sounds ABD: Distended abdomen but soft. Minimal diffuse tenderness to palpation. CT of the abdomen and pelvis: Cardiomegaly with coronary artery calcifications. Status post cholecystectomy. 15.2 x 13.1 x 14.6 cm cystic/solid right adnexal mass. Mildly dilated small bowel loops with air-fluid levels. No free fluid or free air. Labs/Diagnostic Data Labs Test 04/15/25 06:13 04/15/25 05:18 04/14/25 15:00 04/14/25 04:44 Range/Units POC Glucose 168 H 70-106 mg/dl White Blood Count 18.9 H 4.4-10.8 10^3/uL Red Blood Count 4.88 4.0-5.20 10^6/uL Hemoglobin 13.2 12.2-16.2 g/dL Hematocrit 40.0 36.0-46.0 % Mean Corpuscular Volume 81.9 80.0-100.0 fL Mean Corpuscular Hemoglobin 27.1 L 28.0-32.0 pg Mean Corpuscular Hemoglobin Concent 33.1 32.0-36.0 g/dL Red Cell Distribution Width 15.8 H 11.8-14.3 % Platelet Count 393 140-450 10^3/uL Mean Platelet Volume 7.9 6.9-10.8 fL Neutrophils (%) (Auto) 85.9 H 37.0-80.0 % Lymphocytes (%) (Auto) 6.7 L 10.0-50.0 % Monocytes (%) (Auto) 7.3 0.0-12.0 % Eosinophils (%) (Auto) 0.0 0.0-7.0 % Basophils (%) (Auto) 0.1 0.0-2.0 % Neutrophils # (Auto) 16.2 H 1.6-8.6 10 ^3/uL Lymphocytes # (Auto) 1.3 0.4-5.4 10 ^3/uL Monocytes # (Auto) 1.4 H 0-1.3 10 ^3/uL Eosinophils # (Auto) 0 0-0.8 10 ^3/uL Basophils # (Auto) 0 0-0.2 10 ^3/uL Nucleated Red Blood Cells 0.0 % Sodium Level 136 136-145 mmol/L Potassium Level 4.0 3.5-5.1 mmol/L Chloride Level 98 98-107 mmol/L Carbon Dioxide Level 23 20-31 mmol/L Anion Gap 15 5-15 Blood Urea Nitrogen 30 H 9-23 mg/dL Creatinine 1.50 H 0.550-1.02 mg/dL Glomerular Filtration Rate Calc 34 >90 mL/min BUN/Creatinine Ratio 20.0 10.0-20.0 Serum Glucose 165 H 74-106 mg/dL Calcium Level 9.9 8.7-10.4 mg/dL Urine Color Light-yellow Yellow Urine Clarity Clear Clear Urine pH 5.0 5.0-9.0 Urine Specific [place] 1.010 1.001-1.035 Urine Protein Negative Negative Urine Ketones Negative Negative Urine Blood Negative Negative /uL Urine Nitrite Negative Negative Urine Bilirubin Negative Negative Urine Urobilinogen Normal Negative mg/dL Urine Leukocyte Esterase Negative Negative /uL Urine RBC None seen 0 - 4 /hpf Urine Microscopic WBC 1 0-5 /HPF Urine Squamous Epithelial Cells None seen <5 /hpf Urine Bacteria None seen None Seen /hpf Urine Glucose 4+ H Normal mg/dL Prothrombin Time 11.8 9.3-11.8 sec Prothrombin Time INR 1.13 0.9-1.15 Activated Partial Thromboplast Time 32.8 24.5-34.5 SEC Test 04/13/25 05:05 04/12/25 14:55 04/12/25 09:00 Range/Units Total Bilirubin 0.8 0.2-1.0 mg/dL Aspartate Amino Transferase (AST) 12 L 13-40 U/L Alanine Aminotransferase (ALT) 10 7-40 U/L Alkaline Phosphatase 75 46-116 U/L Total Protein 6.2 5.7-8.2 g/dL Albumin 4.0 3.2-4.8 g/dL Urine Yeast (Budding) Occasional None Seen /hpf Hemoglobin A1c 7.8 H <5.7 % A1C B-Type Natriuretic Peptide 1080.00 0-100 pg/mL Lipase 51 12-53 U/L Microbiology Date/Time Source Procedure Growth Status 04/14/25 15:00 Urine - [place] Urine Culture - Preliminary Resulted Assessment 1. Possible partial small bowel obstruction likely caused by the tumor burden from the right adnexal mass. 2. Severe CHF with ejection fraction of 10%. Plan/Recommendation 1. Patient has already been deemed too risky for surgery by gynecology for resection of the right pelvic mass. We will check for small-bowel follow- through results. However patient is a poor surgical candidate as she is too high risk for surgery at this time. I have spoken to the patient's family regarding possibility of making her comfort care. They will think about it and decide. Plan discussed with: Patient, Daughter JANUARY FULLERHasmukh Gould MD Apr 15, 2025 15:51
--- NOTE | 2025-04-15 16:21 | DVH ---
Procedure: XY SMALL BOWEL SERIES-W GASTROGRA Reason for study/Clinical History: SBO Comparison Study: None Technique: Single contrast small bowel series performed. FINDINGS/IMPRESSION: No significant passage of contrast out of the stomach at 01:00 hour. Persistent proximal small bowel dilation. Surgical clips in the right upper quadrant. Overall imaging findings concerning for small- bowel obstruction however currently incomplete examination. Consider follow-up KUB as deemed clinical ly necessary.
[2025-04-15] MEDS ORDERED: TPN PER PHARMACY 0 ML IV SCH (17:15)
--- NOTE | 2025-04-15 17:30 | DVHPN2 ---
Subjective Patient is seen at bedside today, not feeling well, pain from abdomen continues. Reviewed: Care Plan Changes from previous H/P or p: No Changes General: Per HPI Eyes: No Pain, No Vision change, No Conjunctivae inflammation, No Eyelid inflammation, No Other, No Redness ENT: No Ear pain, No Ear discharge, No Nose pain, No Nose discharge, No Nose congestion, No Mouth pain, No Mouth swelling, No Throat pain, No Throat swelling, No Other Cardiovascular: No Chest Pain, No Palpitations, No Orthopnea, No Paroxysmal Noc. Dyspnea, No Edema, No Lt Headedness, No Other Respiratory: No Cough, No Dry, No Shortness of breath, No SOB with excertion, No Wheezing, No Hemoptysis, No Pleuritic Pain, No Sputum, No Other Gastrointestinal: No Nausea, No Vomiting; Abdominal Pain; No Diarrhea, No Constipation, No Melena, No Hematochezia, No Other Genitourinary: No Dysuria, No Frequency, No Incontinence, No Hematuria, No Retention, No Other Musculoskeletal: No other, No neck pain, No shoulder pain, No arm pain, No back pain, No hand pain, No leg pain, No foot pain Skin: No Rash, No Lesions, No Jaundice, No Bruising, No Other Objective Vitals Vital Signs Date Time Temp Pulse Resp B/P (MAP) Pulse Ox O2 Delivery O2 Flow Rate FiO2 04/15/25 17:00 98.2 101 19 129/84 (99) 94 98.2 04/15/25 09:30 Nasal Cannula 2.0 04/15/25 09:30 28 Intake/Output Intake and Output 04/15/25 07:00 Intake Total 350 ml Output Total 450 ml Balance -100 ml Intake Oral 300 ml IV Total 50 ml Output Urine Total 450 ml # Voids 2 # Bowel Movements 2 Exam GEN: Healthy appearing, well-developed, NAD. HEENT: NC/AT; MMM. CV: RRR, no m/r/g. LUNGS: Bilateral lower lobe rales, taking short breaths ABD: Hypoactive bowel sounds, distended abdomen EXT: skin Warm, well perfused. no rashes. No clubbing, cyanosis, or edema. No pitting edema NEURO: Ambulating with no limitations. No focal deficits. Medications Current Medications Medications Dose Ordered Sig/Carl Route Start Time Stop Time Status Last Admin Dose Admin Allopurinol 100 mg DAILY PO 8/27/25 10:00 04/14/25 09:40 100 MG Famotidine 20 mg DAILY IV 04/13/25 10:00 04/14/25 09:40 20 MG Levothyroxine Sodium 75 mcg QAM@0600 PO 04/13/25 06:00 04/14/25 06:11 75 MCG Ondansetron HCl 4 mg Q4HP PRN IV 04/12/25 13:30 Acetaminophen 650 mg Q6HP PRN PO 04/12/25 13:30 Hydrocortisone Acetate 25 mg Q12HR [place] 04/12/25 22:00 04/14/25 22:00 25 MG Diagnostic Test (Pha) 1 strip ACHS 04/13/25 11:30 04/15/25 06:33 1 STRIP Insulin Human Regular ACHS SC 04/13/25 11:30 Dextrose 50 ml UD PRN IV 04/13/25 10:00 Empaglifozin 10 mg DAILY PO 04/13/25 10:00 04/14/25 09:39 10 MG Docusate Sodium 100 mg BID PO 04/13/25 22:00 04/14/25 09:39 100 MG Bumetanide 1 mg DAILY PO 04/15/25 10:00 Meropenem 50 ml @ 17 mls/hr Q12H IV 04/15/25 14:00 04/15/25 15:32 17 MLS/HR Amino Acids 0 ml @ 0 mls/hr PER PHARMACY IV 04/15/25 17:15 UNV Laboratory Results Laboratory Tests 04/15/25 05:18 Chemistry Test 04/15/25 05:18 Calcium Level 9.9 mg/dL (8.7-10.4) Urinalysis Test 04/12/25 14:55 04/14/25 15:00 Urine Yeast (Budding) Occasional /hpf (None Urine Color Light-yellow (Yellow) Urine Clarity Clear (Clear) Urine pH 5.0 (5.0-9.0) Urine Specific [place] 1.010 (1.001-1.035) Urine Protein Negative (Negative) Urine Ketones Negative (Negative) Urine Blood Negative /uL (Negative) Urine Nitrite Negative (Negative) Urine Bilirubin Negative (Negative) Urine Urobilinogen Normal mg/dL (Negative) Urine Leukocyte Esterase Negative /uL (Negative) Urine RBC None seen /hpf (0 - 4) Urine Microscopic WBC 1 /HPF (0-5) Urine Squamous Epithelial Cells None seen /hpf (<5) Urine Bacteria None seen /hpf (None Seen) Urine Glucose 4+ mg/dL (Normal) H Microbiology Microbiology Date/Time Source Procedure Growth Status 04/14/25 15:00 Urine - Dang Port Urine Culture - Preliminary Resulted Labs and/or images reviewed: Labs reviewed by me, Image(s) reviewed by me Assessment/Plan Assessment/Plan 04/15: Yesterday patient had distended abdomen, bladder ultrasound showed significant urinary volume, Dang inserted with good amount of release. Distended abdomen continued CT abdomen was done showing SBO and NG tube was inserted with good amount of output in belly size decreasing significantly. This morning belly size remains down continues to have pain right lower quadrant, hypoactive bowel sounds, planned Gastrografin bowel series done but after 4 hours no movement and contrast remains in stomach. Patient has significant pain from NG tube, POA daughter kristina requesting removal of NG tube due to pain. NG tube was removed, prior to removal suction was done to provide patient some more relief. We will keep patient NPO, some ice chips we will be allowed for symptom relief. PICC line will be inserted start TPN. poker dealer following recommends HL OC, processes be started. Small-bowel obstruction due to large ovarian cyst/mass sepsis with uti: iv meropenem abd pain with large ovarian cyst: obgyn consult chronic systolic heart failure dm: ssi hypothyroidism gout ckd stage 3 Tele DNR DNI Plan discussed with: Patient My Orders Orders - DUSTY PAYNE MD Procedure Category Date Status Time D/C Dang [facility] 04/15/25 In Process 14:39 * Picc Line Consult CONS 04/15/25 Transmitted 17:15 TPN ORDERS 04/15/25 Transmitted 17:15 Tpn Per Pharmacy S[facility] 04/15/25 In Process 17:15 Tpn Per Pharmacy PHA 04/15/25 Pending 17:15 * Radiator Core Tester CONS 04/15/25 Transmitted Consult Date of Service: Apr 15, 2025 Billing Provider: DUSTY PAYNE MD Common Visit Codes: [id number] INP/OBS CARE(HIGH) DUSTY PAYNE MD Apr 15, 2025 17:30
[2025-04-15] MEDS ORDERED: ACCU-CHEK COMFORT CURVE STRIP VI SCH (18:00)
[2025-04-15] MEDS ORDERED: DEXTROSE (50%) 50ML SYRG IV SCH ×2 (18:00→22:00)
[2025-04-15] MEDS ORDERED: InsuLIN REG 1unit/0.01ml Soln (100units/ml) SC SCH (18:00)
[2025-04-15] MEDS: BUMETANIDE 1mg/4ml VIAL (0.25mg/ml) IV ONE (20:09)
[2025-04-15] MEDS: InsuLIN REG 1unit/0.01ml Soln (100units/ml) SC SCH (22:10)
[2025-04-15] MEDS: AMINO ACID INFUSION IN D10W 1,000 ML IV SCH (22:18)
[2025-04-15] MEDS: ACCU-CHEK COMFORT CURVE STRIP VI SCH (22:19)
[2025-04-16] VITALS (9 sets, daily range): BP systolic 110–136; BP diastolic 60–86; PULSE 92–109; RESP 17–18; TEMP 96.6–98.1; O2SAT 94–98
[2025-04-16 07:48] LABS: Hematocrit 40.9 % (36.0-46.0); Hemoglobin 13.4 g/dL (12.2-16.2); Mean Corpuscular Hemoglobin 27.0 pg (28.0-32.0); Mean Corpuscular Volume 82.4 fL (80.0-100.0); Nucleated Red Blood Cells % 0.1 %
[2025-04-16 07:58] LABS: Alanine Aminotransferase 10 U/L (7-40); Alkaline Phosphatase 108 U/L (46-116); Anion Gap 12 (5-15); Calcium 9.7 mg/dL (8.7-10.4); Carbon Dioxide 26 mmol/L (20-31); Chloride 103 mmol/L (98-107); Sodium 141 mmol/L (136-145)
[2025-04-16 07:59] LABS: Albumin 4.0 g/dL (3.2-4.8); BUN/Creatinine Ratio 32.0 (10.0-20.0); Magnesium 2.4 mg/dL (1.6-2.6); Triglycerides 132 mg/dL (< 150)
[2025-04-16 08:00] LABS: Blood Urea Nitrogen 41 mg/dL (9-23); Glucose 197 mg/dL (74-106); Potassium 3.5 mmol/L (3.5-5.1); Total Protein 7.3 g/dL (5.7-8.2)
[2025-04-16 08:01] LABS: Bilirubin, Total 0.6 mg/dL (0.2-1.0)
--- NOTE | 2025-04-16 08:56 | DVHPN2 ---
Chief Complaints Patient reports: No new complaints, Feels better, Feels worse Nursing reports: No new complaints, Other (c/o distended abdomen) Objective Vitals Vital Signs Date Time Temp Pulse Resp B/P (MAP) Pulse Ox O2 Delivery O2 Flow Rate FiO2 04/16/25 04:57 97.6 104 18 136/86 (103) 98 97.6 04/15/25 20:00 Nasal Cannula* 2 28 Medications Current Medications Medications (Trade) Dose Ordered Sig/Carl Route PRN Reason Start Time Stop Time Status Last Admin Amino Acids 0 ml @ 0 mls/hr PER PHARMACY IV 04/15/25 17:15 Amino Acids/ Electrolytes/ Dextrose 1,000 ml @ 41 mls/hr DAILY@2200 IV 04/15/25 22:00 04/16/25 21:59 04/15/25 22:18 Bumetanide (Bumex Tablet) 1 mg DAILY PO 04/15/25 10:00 Dextrose 50 ml UD IV 04/15/25 22:00 Diagnostic Test (Pha) (Accu-Chek Comfort Curve T) 1 strip Q6HR 04/15/25 22:00 04/16/25 06:23 Insulin Human Regular (InsuLIN R) FOLLOW SLIDING SCALE Q6HR SC 04/15/25 22:00 04/16/25 06:28 Meropenem 50 ml @ 17 mls/hr Q12H IV 04/15/25 14:00 04/16/25 02:41 Abdominal: Distended Others abd -softer,nt Studies Laboratory Tests 04/16/25 06:58 Test 04/16/25 06:58 Range/Units Serum Glucose 197 H 74-106 mg/dL Ass/Plan Assessment ovarian mass bowel obstruction appears clinically improving Plan [facility] TRANSFER FAILED ,[facility] WOULDNT ACCEPT THE PT .THEY [place]OMM[place] [facility] [place] [facility] THE PT IS VERY HIGH RISK FOR SURGERY .I SPOKE TO DR BORJAS AND REQUESTED HIM TO CONTACT THE OTHER 2 FACILITY. Visit Coding OBGYN Date of Service: Apr 16, 2025 Billing Provider: AGUSTIN LARSEN DO PIGGYBACK CLERK Common Visit Codes: [id number] INP/OBS CARE(HIGH) AGUSTIN LARSEN DO Apr 16, 2025 08:56
--- NOTE | 2025-04-16 16:50 | DVHPN2 ---
Subjective Patient is seen at bedside today, not feeling well, pain from abdomen continues. Reviewed: Care Plan Changes from previous H/P or p: No Changes General: Per HPI Eyes: No Pain, No Vision change, No Conjunctivae inflammation, No Eyelid inflammation, No Other, No Redness ENT: No Ear pain, No Ear discharge, No Nose pain, No Nose discharge, No Nose congestion, No Mouth pain, No Mouth swelling, No Throat pain, No Throat swelling, No Other Cardiovascular: No Chest Pain, No Palpitations, No Orthopnea, No Paroxysmal Noc. Dyspnea, No Edema, No Lt Headedness, No Other Respiratory: No Cough, No Dry, No Shortness of breath, No SOB with excertion, No Wheezing, No Hemoptysis, No Pleuritic Pain, No Sputum, No Other Gastrointestinal: No Nausea, No Vomiting; Abdominal Pain; No Diarrhea, No Constipation, No Melena, No Hematochezia, No Other Genitourinary: No Dysuria, No Frequency, No Incontinence, No Hematuria, No Retention, No Other Musculoskeletal: No other, No neck pain, No shoulder pain, No arm pain, No back pain, No hand pain, No leg pain, No foot pain Skin: No Rash, No Lesions, No Jaundice, No Bruising, No Other Objective Vitals Vital Signs Date Time Temp Pulse Resp B/P (MAP) Pulse Ox O2 Delivery O2 Flow Rate FiO2 04/16/25 13:00 97.3 97.3 04/16/25 13:00 92 18 125/76 (92) 95 04/15/25 20:00 Nasal Cannula* 2 28 Intake/Output Intake and Output 04/16/25 07:00 Intake Total 387 ml Output Total 1010 ml Balance -623 ml Intake Oral 0 ml IV Total 387 ml Output Urine Total 760 ml Gastric Drainage Total 250 ml Exam GEN: Healthy appearing, well-developed, NAD. HEENT: NC/AT; MMM. CV: RRR, no m/r/g. LUNGS: Bilateral lower lobe rales, taking short breaths ABD: Hypoactive bowel sounds, distended abdomen EXT: skin Warm, well perfused. no rashes. No clubbing, cyanosis, or edema. No pitting edema NEURO: Ambulating with no limitations. No focal deficits. Medications Current Medications Medications Dose Ordered Sig/Carl Route Start Time Stop Time Status Last Admin Dose Admin Allopurinol 100 mg DAILY PO 04/13/25 10:00 04/14/25 09:40 100 MG Famotidine 20 mg DAILY IV 04/13/25 10:00 04/16/25 12:29 20 MG Levothyroxine Sodium 75 mcg QAM@0600 PO 04/13/25 06:00 04/14/25 06:11 75 MCG Ondansetron HCl 4 mg Q4HP PRN IV 04/12/25 13:30 Acetaminophen 650 mg Q6HP PRN PO 04/12/25 13:30 Hydrocortisone Acetate 25 mg Q12HR AL 04/12/25 22:00 04/16/25 10:00 25 MG Empaglifozin 10 mg DAILY PO 04/13/25 10:00 04/14/25 09:39 10 MG Docusate Sodium 100 mg BID PO 04/13/25 22:00 04/14/25 09:39 100 MG Bumetanide 1 mg DAILY PO 04/15/25 10:00 Meropenem 50 ml @ 17 mls/hr Q12H IV 04/15/25 14:00 04/16/25 13:18 17 MLS/HR Amino Acids 0 ml @ 0 mls/hr PER PHARMACY IV 04/15/25 17:15 Amino Acids/ Electrolytes/ Dextrose 1,000 ml @ 41 mls/hr DAILY@2200 IV 04/15/25 22:00 04/16/25 21:59 04/15/25 22:18 41 MLS/HR Dextrose 50 ml UD IV 04/15/25 22:00 Insulin Human Regular FOLLOW SLIDING SCALE Q6HR SC 04/15/25 22:00 04/16/25 12:00 4 UNITS Diagnostic Test (Pha) 1 strip Q6HR 04/15/25 22:00 04/16/25 12:00 1 STRIP Laboratory Results Laboratory Tests 04/16/25 06:58 Chemistry Test 04/16/25 06:58 Albumin 4.0 g/dL (3.2-4.8) Calcium Level 9.7 mg/dL (8.7-10.4) Magnesium Level 2.4 mg/dL (1.6-2.6) Phosphorus Level 2.1 mg/dL (2.4-5.1) L Total Protein 7.3 g/dL (5.7-8.2) Lipid panel Test 04/16/25 06:58 Triglycerides Level 132 mg/dL (< 150) LFT Test 04/16/25 06:58 Alanine Aminotransferase (ALT) 10 U/L (7-40) Alkaline Phosphatase 108 U/L (46-116) Aspartate Amino Transferase (AST) 20 U/L (13-40) Total Bilirubin 0.6 mg/dL (0.2-1.0) Urinalysis Test 04/12/25 14:55 04/14/25 15:00 Urine Yeast (Budding) Occasional /hpf (None Urine Color Light-yellow (Yellow) Urine Clarity Clear (Clear) Urine pH 5.0 (5.0-9.0) Urine Specific [place] 1.010 (1.001-1.035) Urine Protein Negative (Negative) Urine Ketones Negative (Negative) Urine Blood Negative /uL (Negative) Urine Nitrite Negative (Negative) Urine Bilirubin Negative (Negative) Urine Urobilinogen Normal mg/dL (Negative) Urine Leukocyte Esterase Negative /uL (Negative) Urine RBC None seen /hpf (0 - 4) Urine Microscopic WBC 1 /HPF (0-5) Urine Squamous Epithelial Cells None seen /hpf (<5) Urine Bacteria None seen /hpf (None Seen) Urine Glucose 4+ mg/dL (Normal) H Microbiology Microbiology Date/Time Source Procedure Growth Status 04/14/25 15:00 Urine - Dang Port Urine Culture - Preliminary Resulted Labs and/or images reviewed: Labs reviewed by me, Image(s) reviewed by me Assessment/Plan Assessment/Plan 04/15: Yesterday patient had distended abdomen, bladder ultrasound showed significant urinary volume, Dang inserted with good amount of release. Distended abdomen continued CT abdomen was done showing SBO and NG tube was inserted with good amount of output in belly size decreasing significantly. This morning belly size remains down continues to have pain right lower quadrant, hypoactive bowel sounds, planned Gastrografin bowel series done but after 4 hours no movement and contrast remains in stomach. Patient has significant pain from NG tube, POA daughter kristina requesting removal of NG tube due to pain. NG tube was removed, prior to removal suction was done to provide patient some more relief. We will keep patient NPO, some ice chips we will be allowed for symptom relief. PICC line will be inserted start TPN. 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 04/16: Had extensive output in NG tube overnight, NG tube was not removed yesterday due to output continuing. This morning scant output 200 cc or 9 hours patient in significant amount of pain from NG tube, NG tube removed. Transferred to [facility] was declined. Today we will put transfer for uCi and UCSD. UCi preliminary reports declining. Waiting for UCSD. We will keep patient NPO.. Continue Dang. Small-bowel obstruction due to large ovarian cyst/mass sepsis with uti: iv meropenem abd pain with large ovarian cyst: obgyn consult chronic systolic heart failure dm: ssi hypothyroidism gout ckd stage 3 Tele DNR DNI Plan discussed with: Daughter, Other My Orders Orders - DUSTY PAYNE MD Procedure Category Date Status Time * Picc Line Consult CONS 04/15/25 Transmitted 17:15 TPN ORDERS 04/15/25 Transmitted 17:15 Tpn Per Pharmacy S[facility]IS 04/15/25 In Process 17:15 Tpn Per Pharmacy PHA 04/15/25 In Process 17:15 Transfer Orders XFER 04/15/25 Transmitted 17:30 Amino Acid Infusion PHA 04/15/25 In Process In D10w (Clinimix 4. 22:00 Dextrose 50% Syringe PHA 04/15/25 In Process 22:00 Insulin R (Human) PHA 04/15/25 In Process (Insulin R) 22:00 Glucose Blood PHA 04/15/25 In Process (Accu-Chek Comfort 22:00 * Filling Machine Set Up Mechanic CONS 04/16/25 Transmitted Consult Discontinue Ng ORDERS 04/16/25 Transmitted 14:56 Date of Service: Apr 16, 2025 Billing Provider: DUSTY PAYNE MD Common Visit Codes: [id number] INP/OBS CARE(HIGH) DUSTY PAYNE MD Apr 16, 2025 16:50
[2025-04-16] MEDS: POTASSIUM PHOSPHATE 22 MEQ in SODIUM CHL 0.9% 100 ML IV ONE (17:00)
--- NOTE | 2025-04-16 18:45 | DVH ---
EXAM: XY KUB ABDOMEN SINGLE VIEW HISTORY: upright, assess sbo COMPARISON: XY SMALL BOWEL SERIES-W GASTROGRA on DOS: 04/15/25 TECHNIQUE: Supine view of the abdomen FINDINGS/IMPRESSION: Persistent small bowel dilation measuring up to 3.5 cm however contrast within the ascending to proxi mal transverse colon. There is no evidence for pneumoperitoneum. No abnormal calcifications noted. Fi ndings may be compatible with ileus. Prior insufficiency fractures of the right superior and inferior pubic rami. Right cephalomedullary nail fixation
[2025-04-16] MEDS: LIDOCAINE 1% (LOCAL ANESTH.) PF 5ml SDV ID ONE (19:15)
--- NOTE | 2025-04-16 19:54 | DVH ---
CHEST RADIOGRAPH Indication: PICC LINE PLACEMENT. Technique: Single frontal view of the chest was obtained COMPARISON: XY CHEST PORTABLE on DOS: 04/14/25 FINDINGS: Lines and Tubes: Interval insertion of right-sided PICC with its tip projecting over cavoatrial junct ion. Lungs: Clear Pleura: No pleural effusion or pneumothorax. Cardiomediastinal contours: Marked cardiomegaly. IMPRESSION: Right-sided PICC in satisfactory position. Marked cardiomegaly.
[2025-04-16] MEDS: SODIUM CHLOR 0.9% PF (SALINE LOCK) 10ML VIAL/SYR IV SCH (22:13)
[2025-04-17] VITALS (8 sets, daily range): BP systolic 95–128; BP diastolic 61–78; PULSE 55–98; RESP 6–19; TEMP 97.5–98; O2SAT 0–100
[2025-04-17 06:31] LABS: Hemoglobin 12.5 g/dL (12.2-16.2); Nucleated Red Blood Cells % 0.0 %
[2025-04-17 06:35] LABS: Hematocrit 37.9 % (36.0-46.0); Mean Corpuscular Hemoglobin 26.9 pg (28.0-32.0); Mean Corpuscular Volume 81.8 fL (80.0-100.0)
[2025-04-17 07:02] LABS: Alanine Aminotransferase 24 U/L (7-40); Albumin 3.7 g/dL (3.2-4.8); Anion Gap 11 (5-15); BUN/Creatinine Ratio 45.6 (10.0-20.0); Calcium 9.6 mg/dL (8.7-10.4); Carbon Dioxide 26 mmol/L (20-31); Magnesium 2.5 mg/dL (1.6-2.6); Potassium 3.6 mmol/L (3.5-5.1); Sodium 144 mmol/L (136-145); Total Protein 6.8 g/dL (5.7-8.2)
[2025-04-17 07:03] LABS: Bilirubin, Total 0.7 mg/dL (0.2-1.0)
[2025-04-17 07:07] LABS: Alkaline Phosphatase 124 U/L (46-116); Blood Urea Nitrogen 47 mg/dL (9-23); Chloride 107 mmol/L (98-107); Glucose 140 mg/dL (74-106)
--- NOTE | 2025-04-17 08:23 | DVHPN2 ---
Chief Complaints Patient reports: No new complaints, Feels better, Feels worse, Other (pt has ng out as of yesterday ) Nursing reports: No new complaints, Other (c/o distended abdomen) Objective Vitals Vital Signs Date Time Temp Pulse Resp B/P (MAP) Pulse Ox O2 Delivery O2 Flow Rate FiO2 04/17/25 04:58 97.8 98 17 107/61 (76) 100 97.8 04/16/25 20:00 Nasal Cannula* 2 28 Medications Current Medications Medications (Trade) Dose Ordered Sig/Carl Route PRN Reason Start Time Stop Time Status Last Admin Sodium Chloride (Saline Lock Ns) 10 ml QSHIFT@10,22 IV 04/16/25 22:00 04/16/25 22:13 Abdominal: Distended, Other (nobowl sounds ) Studies Laboratory Tests 04/17/25 05:00 Test 04/17/25 05:00 Range/Units Serum Glucose 140 H 74-106 mg/dL Ass/Plan Assessment ovarian mass bowel obstruction since ng out some distention noted Plan supportive care Visit Coding OBGYN Date of Service: Apr 17, 2025 Billing Provider: AGUSTIN LARSEN DO BASKET FILLER Common Visit Codes: [id number] INP/OBS CARE(HIGH) AGUSTIN LARSEN DO Apr 17, 2025 08:23
--- NOTE | 2025-04-17 11:07 | DVHPN2 ---
Subjective Patient is seen at bedside today, not feeling well, pain from abdomen continues. Reviewed: Care Plan Changes from previous H/P or p: No Changes General: Per HPI Eyes: No Pain, No Vision change, No Conjunctivae inflammation, No Eyelid inflammation, No Other, No Redness ENT: No Ear pain, No Ear discharge, No Nose pain, No Nose discharge, No Nose congestion, No Mouth pain, No Mouth swelling, No Throat pain, No Throat swelling, No Other Cardiovascular: No Chest Pain, No Palpitations, No Orthopnea, No Paroxysmal Noc. Dyspnea, No Edema, No Lt Headedness, No Other Respiratory: No Cough, No Dry, No Shortness of breath, No SOB with excertion, No Wheezing, No Hemoptysis, No Pleuritic Pain, No Sputum, No Other Gastrointestinal: No Nausea, No Vomiting; Abdominal Pain; No Diarrhea, No Constipation, No Melena, No Hematochezia, No Other Genitourinary: No Dysuria, No Frequency, No Incontinence, No Hematuria, No Retention, No Other Musculoskeletal: No other, No neck pain, No shoulder pain, No arm pain, No back pain, No hand pain, No leg pain, No foot pain Skin: No Rash, No Lesions, No Jaundice, No Bruising, No Other Objective Vitals Vital Signs Date Time Temp Pulse Resp B/P (MAP) Pulse Ox O2 Delivery O2 Flow Rate FiO2 04/17/25 09:00 97.6 55 6 95/64 (74) 0 97.6 04/16/25 20:00 Nasal Cannula* 2 28 Intake/Output Intake and Output 04/17/25 07:00 Intake Total 100 ml Output Total 800 ml Balance -700 ml Intake Oral 0 ml IV Total 100 ml Output Urine Total 800 ml Exam GEN: Healthy appearing, well-developed, NAD. HEENT: NC/AT; MMM. CV: RRR, no m/r/g. LUNGS: Bilateral lower lobe rales, taking short breaths ABD: Hypoactive bowel sounds, distended abdomen EXT: skin Warm, well perfused. no rashes. No clubbing, cyanosis, or edema. No pitting edema NEURO: Ambulating with no limitations. No focal deficits. Medications Current Medications Medications Dose Ordered Sig/Acrl Route Start Time Stop Time Status Last Admin Dose Admin Allopurinol 100 mg DAILY PO 04/13/25 10:00 04/14/25 09:40 100 MG Famotidine 20 mg DAILY IV 04/13/25 10:00 04/17/25 10:40 20 MG Levothyroxine Sodium 75 mcg QAM@0600 PO 04/13/25 06:00 04/14/25 06:11 75 MCG Ondansetron HCl 4 mg Q4HP PRN IV 04/12/25 13:30 Acetaminophen 650 mg Q6HP PRN PO 04/12/25 13:30 Hydrocortisone Acetate 25 mg Q12HR [place] 04/12/25 22:00 04/17/25 10:00 25 MG Empaglifozin 10 mg DAILY PO 04/13/25 10:00 04/14/25 09:39 10 MG Docusate Sodium 100 mg BID PO 04/13/25 22:00 04/14/25 09:39 100 MG Bumetanide 1 mg DAILY PO 04/15/25 10:00 Meropenem 50 ml @ 17 mls/hr Q12H IV 04/15/25 14:00 04/17/25 01:37 17 MLS/HR Amino Acids 0 ml @ 0 mls/hr PER PHARMACY IV 04/15/25 17:15 Dextrose 50 ml UD IV 04/15/25 22:00 Insulin Human Regular FOLLOW SLIDING SCALE Q6HR SC 04/15/25 22:00 04/17/25 06:19 2 UNITS Diagnostic Test (Pha) 1 strip Q6HR 04/15/25 22:00 04/17/25 06:18 1 STRIP Sodium Chloride 10 ml QSHIFT@10,22 IV 04/16/25 22:00 04/17/25 11:04 10 ML Fat Emulsion Intravenous 50 ml/ Potassium Phosphate 22 meq/ Multivitamins 10 ml/Chromium/ Copper/Manganese/ Zinc 1 ml/Amino Acids/Dextrose/ Purified Water 1,066 ml @ 44 mls/hr [id number] IV 04/17/25 22:00 04/18/25 21:59 Laboratory Results Laboratory Tests 04/17/25 05:00 Chemistry Test 04/17/25 05:00 Albumin 3.7 g/dL (3.2-4.8) Calcium Level 9.6 mg/dL (8.7-10.4) Magnesium Level 2.5 mg/dL (1.6-2.6) Phosphorus Level 2.2 mg/dL (2.4-5.1) L Total Protein 6.8 g/dL (5.7-8.2) LFT Test 04/17/25 05:00 Alanine Aminotransferase (ALT) 24 U/L (7-40) Alkaline Phosphatase 124 U/L (46-116) H Aspartate Amino Transferase (AST) 58 U/L (13-40) H Total Bilirubin 0.7 mg/dL (0.2-1.0) Urinalysis Test 04/12/25 14:55 04/14/25 15:00 Urine Yeast (Budding) Occasional /hpf (None Urine Color Light-yellow (Yellow) Urine Clarity Clear (Clear) Urine pH 5.0 (5.0-9.0) Urine Specific [place] 1.010 (1.001-1.035) Urine Protein Negative (Negative) Urine Ketones Negative (Negative) Urine Blood Negative /uL (Negative) Urine Nitrite Negative (Negative) Urine Bilirubin Negative (Negative) Urine Urobilinogen Normal mg/dL (Negative) Urine Leukocyte Esterase Negative /uL (Negative) Urine RBC None seen /hpf (0 - 4) Urine Microscopic WBC 1 /HPF (0-5) Urine Squamous Epithelial Cells None seen /hpf (<5) Urine Bacteria None seen /hpf (None Seen) Urine Glucose 4+ mg/dL (Normal) H Microbiology Microbiology Date/Time Source Procedure Growth Status 04/14/25 15:00 Urine - Dang Port Urine Culture - Preliminary Resulted Labs and/or images reviewed: Labs reviewed by me, Image(s) reviewed by me Assessment/Plan Assessment/Plan 04/15: Yesterday patient had distended abdomen, bladder ultrasound showed significant urinary volume, Dang inserted with good amount of release. Distended abdomen continued CT abdomen was done showing SBO and NG tube was inserted with good amount of output in belly size decreasing significantly. This morning belly size remains down continues to have pain right lower quadrant, hypoactive bowel sounds, planned Gastrografin bowel series done but after 4 hours no movement and contrast remains in stomach. Patient has significant pain from NG tube, POA daughter kristina requesting removal of NG tube due to pain. NG tube was removed, prior to removal suction was done to provide patient some more relief. We will keep patient NPO, some ice chips we will be allowed for symptom relief. PICC line will be inserted start TPN. child care aide following recommends HL OC, processes be started. 04/16: Had extensive output in NG tube overnight, NG tube was not removed yesterday due to output continuing. This morning scant output 200 cc or 9 hours patient in significant amount of pain from NG tube, NG tube removed. Transferred to [facility] was declined. Today we will put transfer for uCi and UCSD. UCi preliminary reports declining. Waiting for UCSD. We will keep patient NPO.. Continue Dang. 04/17 - no changes today. just keep npo. continue transfer for UCSD. will repeat kub portable upright today. Small-bowel obstruction due to large ovarian cyst/mass sepsis with uti: iv meropenem abd pain with large ovarian cyst: obgyn consult chronic systolic heart failure dm: ssi hypothyroidism gout ckd stage 3 Tele DNR DNI Plan discussed with: Other My Orders Orders - DUSTY PAYNE MD Procedure Category Date Status Time Discontinue Ng ORDERS 04/16/25 Transmitted 14:56 Clinimix Per Pharmacy [facility] 04/16/25 In Process 22:00 Kub Abdomen Single XY 04/16/25 Resulted View 17:53 Nursing Protocol Picc [facility] 04/16/25 In Process 19:15 Change Dressing Prn [facility] 04/16/25 In Process 19:15 PICC BD 04/16/25 Transmitted 19:15 Sodium Chloride Lock PHA 04/16/25 In Process (Saline Lock Ns) 22:00 Do Not Use Picc For [facility] 04/16/25 In Process Blood Cult 19:15 May Draw Blood From [facility] 04/16/25 In Process Picc 19:15 Chest Portable XY 04/16/25 Resulted 19:15 Ok To Use Picc SARKIS 04/16/25 In Process 19:15 Change Picc Dressing [facility] 04/16/25 In Process Q7 Days 19:15 Amino Acid PHA 04/17/25 In Process Infusion... W/Fat 22:00 Potassium Phosphate PHA 04/17/25 In Process 11:15 Comprehensive LAB 04/18/25 Verified Metabolic Panel 04:00 Magnesium LAB 04/18/25 Verified 04:00 Phosphorus LAB 04/18/25 Verified 04:00 Tpn Per Pharmacy [facility] 04/17/25 In Process 22:00 Kub Abdomen Single XY 04/17/25 Transmitted View 11:05 Date of Service: Apr 17, 2025 Billing Provider: DUSTY PAYNE MD Common Visit Codes: [id number] INP/OBS CARE(HIGH) DUSTY PAYNE MD Apr 17, 2025 11:07
[2025-04-17] MEDS: POTASSIUM PHOSPHATE 22 MEQ in SODIUM CHL 0.9% 100 ML IV ONE (11:49)
[2025-04-17] MEDS: MEROPENEM 1GM IVPB 50 ML IV SCH (12:09)
[2025-04-17] MEDS: AMINO ACID INFUSION IN D10W 1,000 ML IV SCH ×2 (12:53→13:38)
--- NOTE | 2025-04-17 13:55 | DVH ---
EXAM: XY KUB ABDOMEN SINGLE VIEW HISTORY: reassess sbo, portable film, upright COMPARISON: XY KUB ABDOMEN SINGLE VIEW on DOS: 04/16/25 TECHNIQUE: Supine view of the abdomen FINDINGS/IMPRESSION: Nonobstructive bowel gas pattern noted. There is no evidence for pneumoperitoneum. No abnormal calcif ications noted. Surgical clips in the right upper quadrant.
[2025-04-17] MEDS ORDERED: AMINO ACID INFUSION IN D5W 1,000 ML IV NR (20:00)
[2025-04-17] MEDS: TPN PER PHARMACY IV NR (21:15)
[2025-04-18] VITALS (8 sets, daily range): BP systolic 106–136; BP diastolic 60–100; PULSE 79–99; RESP 18–20; TEMP 97.4–98.4; O2SAT 95–100
--- NOTE | 2025-04-18 00:08 | DVH ---
Exam: XY KUB ABDOMEN SINGLE VIEW Indication: sbo Comparison: XY KUB ABDOMEN SINGLE VIEW on DOS: 04/17/25, XY KUB ABDOMEN SINGLE VIEW on DOS: 04/16/25, X Y SMALL BOWEL SERIES-W GASTROGRA on DOS: 04/15/25, CT CT AB PEL WO CON-NO ORAL OR IV on DOS: 04/14/25, XY KUB ABDOMEN SINGLE VIEW on DOS: 04/14/25 Technique: 2 radiographic views of the abdomen. Findings: The visualized portions of the lung bases are clear. Right upper quadrant surgical clips. Contrast material partially delineates segments of large bowel where there is also gas and mild diste ntion. No definite evidence of obstruction. There is no definite evidence for pneumoperitoneum. No abnormal calcifications noted. Hardware within the proximal right femur without evidence of complication. Impression: 1. Nonobstructive bowel gas pattern noted. 2. Contrast material throughout the colon.
--- NOTE | 2025-04-18 04:08 | DVH ---
Exam: US US GUIDED VASCULAR ACCESS Date: 04/16/2025 06:07 PM Clinical History: picc line placement Comparison: None Findings: Targeted sonographic evaluation of the basilic vein was obtained utilizing grayscale and color Dopple r imaging. IMPRESSION: Sonographic assistance for central line placement. Please refer to procedural report for detailed fin dings.
[2025-04-18 06:36] LABS: Alanine Aminotransferase 28 U/L (7-40); Albumin 3.7 g/dL (3.2-4.8); Alkaline Phosphatase 126 U/L (46-116); Anion Gap 11 (5-15); BUN/Creatinine Ratio 45.6 (10.0-20.0); Bilirubin, Total 0.8 mg/dL (0.2-1.0); Blood Urea Nitrogen 41 mg/dL (9-23); Calcium 9.3 mg/dL (8.7-10.4); Carbon Dioxide 25 mmol/L (20-31); Chloride 109 mmol/L (98-107); Glucose 207 mg/dL (74-106); Magnesium 2.4 mg/dL (1.6-2.6); Potassium 3.7 mmol/L (3.5-5.1); Sodium 145 mmol/L (136-145); Total Protein 6.5 g/dL (5.7-8.2)
--- NOTE | 2025-04-18 08:27 | DVHPN2 ---
Chief Complaints Patient reports: No new complaints, Feels better, Feels worse, Other (PT IS SLEEPING .FAMILY BY BEDSIDE STATING SHE HAD A SMALL BM ) Nursing reports: No new complaints, Other (c/o distended abdomen) Objective Vitals Vital Signs Date Time Temp Pulse Resp B/P (MAP) Pulse Ox O2 Delivery O2 Flow Rate FiO2 04/18/25 05:00 97.7 85 18 131/71 (91) 98 97.7 04/17/25 20:00 Nasal Cannula* 2 28 Medications Current Medications Medications (Trade) Dose Ordered Sig/Carl Route PRN Reason Start Time Stop Time Status Last Admin Amino Acids 1,000 ml @ 41 mls/hr DAILY@1999 IV 04/17/25 20:00 04/17/25 21:59 Cancel Fat Emulsion Intravenous 50 ml/ Potassium Phosphate 22 meq/ Multivitamins 10 ml/Chromium/ Copper/Manganese/ Zinc 1 ml/Amino Acids/Dextrose/ Purified Water 1,066 ml @ 44 mls/hr [id number] IV 04/17/25 22:00 04/18/25 21:59 04/17/25 21:15 Meropenem 50 ml @ 17 mls/hr Q12HR IV 04/17/25 12:00 04/17/25 21:14 Abdominal: Distended, Other (nobowl sounds ) Studies Laboratory Tests 04/18/25 04:58 04/17/25 05:00 Test 04/18/25 04:58 Range/Units Serum Glucose 207 H 74-106 mg/dL Ass/Plan Assessment ovarian mass bowel obstruction UNCHANGED ON TPN Plan SUPPORTIVE CARE Visit Coding OBGYN Date of Service: Apr 18, 2025 Billing Provider: AGUSTIN LARSEN DO PIT CRANE OPERATOR Common Visit Codes: [id number] OBS CARE (HIGH), [id number] INP/OBS CARE(HIGH) AGUSTIN LARSEN DO Apr 18, 2025 08:27
--- NOTE | 2025-04-18 15:51 | DVHDS2 ---
Discharge Summary Date of Admission Apr 12, 2025 at 15:09 Date of Discharge: Apr 18, 2025 Labs/Diagnostic Data: Laboratory Results Test 04/18/25 05:33 04/18/25 04:58 04/17/25 05:00 04/16/25 06:58 POC Glucose 212 mg/dl (70-106) Sodium Level 145 mmol/L (136-145) Potassium Level 3.7 mmol/L (3.5-5.1) Chloride Level 109 mmol/L (98-107) Carbon Dioxide Level 25 mmol/L (20-31) Anion Gap 11 (5-15) Blood Urea Nitrogen 41 mg/dL (9-23) Creatinine 0.90 mg/dL (0.550-1.02) Glomerular Filtration Rate Calc 62 mL/min (>90) BUN/Creatinine Ratio 45.6 (10.0-20.0) Serum Glucose 207 mg/dL (74-106) Calcium Level 9.3 mg/dL (8.7-10.4) Phosphorus Level 2.3 mg/dL (2.4-5.1) Magnesium Level 2.4 mg/dL (1.6-2.6) Total Bilirubin 0.8 mg/dL (0.2-1.0) Aspartate Amino Transferase (AST) 40 U/L (13-40) Alanine Aminotransferase (ALT) 28 U/L (7-40) Alkaline Phosphatase 126 U/L (46-116) Total Protein 6.5 g/dL (5.7-8.2) Albumin 3.7 g/dL (3.2-4.8) White Blood Count 12.2 10^3/uL (4.4-10.8) Red Blood Count 4.63 10^6/uL (4.0-5.20) Hemoglobin 12.5 g/dL (12.2-16.2) Hematocrit 37.9 % (36.0-46.0) Mean Corpuscular Volume 81.8 fL (80.0-100.0) Mean Corpuscular Hemoglobin 26.9 pg (28.0-32.0) Mean Corpuscular Hemoglobin Concent 32.9 g/dL (32.0-36.0) Red Cell Distribution Width 16.6 % (11.8-14.3) Platelet Count 359 10^3/uL (140-450) Mean Platelet Volume 7.7 fL (6.9-10.8) Neutrophils (%) (Auto) 76.3 % (37.0-80.0) Lymphocytes (%) (Auto) 12.1 % (10.0-50.0) Monocytes (%) (Auto) 11.3 % (0.0-12.0) Eosinophils (%) (Auto) 0.1 % (0.0-7.0) Basophils (%) (Auto) 0.2 % (0.0-2.0) Neutrophils # (Auto) 9.3 10 ^3/uL (1.6-8.6) Lymphocytes # (Auto) 1.5 10 ^3/uL (0.4-5.4) Monocytes # (Auto) 1.4 10 ^3/uL (0-1.3) Eosinophils # (Auto) 0 10 ^3/uL (0-0.8) Basophils # (Auto) 0 10 ^3/uL (0-0.2) Nucleated Red Blood Cells 0.0 % Prealbumin 6.0 md/dL (10.0-40.0) Triglycerides Level 132 mg/dL (< 150) Test 04/14/25 15:00 04/14/25 04:44 04/12/25 14:55 04/12/25 09:00 Urine Color Light-yellow (Yellow) Urine Clarity Clear (Clear) Urine pH 5.0 (5.0-9.0) Urine Specific [place] 1.010 (1.001-1.035) Urine Protein Negative (Negative) Urine Ketones Negative (Negative) Urine Blood Negative /uL (Negative) Urine Nitrite Negative (Negative) Urine Bilirubin Negative (Negative) Urine Urobilinogen Normal mg/dL (Negative) Urine Leukocyte Esterase Negative /uL (Negative) Urine RBC None seen /hpf (0 - 4) Urine Microscopic WBC 1 /HPF (0-5) Urine Squamous Epithelial Cells None seen /hpf (<5) Urine Bacteria None seen /hpf (None Seen) Urine Glucose 4+ mg/dL (Normal) Prothrombin Time 11.8 sec (9.3-11.8) Prothrombin Time INR 1.13 (0.9-1.15) Activated Partial Thromboplast Time 32.8 SEC (24.5-34.5) Urine Yeast (Budding) Occasional /hpf (None Hemoglobin A1c 7.8 % A1C (<5.7) B-Type Natriuretic Peptide 1080.00 pg/mL (0-100) Lipase 51 U/L (12-53) Other Laboratory Tests 04/18/25 04:58 04/17/25 05:00 Brief Hx & Hospital Course: 04/15: Yesterday patient had distended abdomen, bladder ultrasound showed significant urinary volume, Dang inserted with good amount of release. Distended abdomen continued CT abdomen was done showing SBO and NG tube was inserted with good amount of output in belly size decreasing significantly. This morning belly size remains down continues to have pain right lower quadrant, hypoactive bowel sounds, planned Gastrografin bowel series done but after 4 hours no movement and contrast remains in stomach. Patient has significant pain from NG tube, POA daughter kristina requesting removal of NG tube due to pain. NG tube was removed, prior to removal suction was done to provide patient some more relief. We will keep patient NPO, some ice chips we will be allowed for symptom relief. PICC line will be inserted start TPN. dehydrogenation operator following recommends HL OC, processes be started. 04/16: Had extensive output in NG tube overnight, NG tube was not removed yesterday due to output continuing. This morning scant output 200 cc or 9 hours patient in significant amount of pain from NG tube, NG tube removed. Transferred to [facility] was declined. Today we will put transfer for [facility] and [facility]. [facility] [place]. [facility] We will keep patient NPO.. Continue Dang. 04/17 - no changes today. just keep npo. continue transfer for [facility]. will repeat kub portable upright today. 04/18: [facility] accepting for transfer for Gyne Onc kendra. diagnosis: Small-bowel obstruction due to large ovarian cyst/mass sepsis with uti abd pain with large ovarian cystic/solid mass chronic systolic heart failure dm hypothyroidism gout ckd stage 3 plan: transfer to [facility]. continue meds per MAR keep npo Condition at Discharge: Guarded Final Diagnosis/Problems List Small-bowel obstruction due to large ovarian cyst/mass sepsis with uti abd pain with large ovarian cystic/solid mass chronic systolic heart failure dm hypothyroidism gout ckd stage 3 Discharge Disposition: Acute Care Facility Discharge Instruct/Medications Diet: See Comment Activity: No Restrictions, As Tolerated Follow Up/Referral: below Medications: below Scheduled Allopurinol (Allopurinol), 100 MG PO DAILY, (Reported) Bumetanide (Bumetanide), 1 TAB PO DAILY, (Reported) Cholecalciferol (Vitamin D3), 1 CAP PO DAILY, (Reported) Ciprofloxacin Hydrochloride (Ciprofloxacin HCl), 1 TAB PO DAILY, (Reported) Docusate Sodium (Docusate Sodium), 1 CAP PO BID, (Reported) Empagliflozin (Jardiance), 10 MG PO QAM Levothyroxine Sodium (Levothyroxine Sodium), 1 TAB PO DAILY, (Reported) Metoprolol Succinate (Metoprolol Succinate Er), 1 TAB PO DAILY, (Reported) Pantoprazole Sodium Sesquihydr (Pantoprazole Sodium), 20 MG PO DAILY, (Reported) Spironolactone (Spironolactone), 1 TAB PO DAILY, (Reported) Discharge Statement: "Patient was advised to return to the ER or call 911 if any headaches, dizziness, shortness of breath, chest pain, abdominal pain, bleeding, fevers, or worsening of medical condition. Patient was counseled about treatment plan, medications, possible side effects, patientverbalized understanding. All questions were answered to the best of my ability. This discharge took greater then 30 minutes in planning, reviewing documentation, counseling the patient, and discussing with other team members." Date of Service: Apr 18, 2025 Billing Provider: DUSTY PAYNE MD Common Visit Codes: [id number] DISCH DAY >30min DUSTY PAYNE MD Apr 18, 2025 15:51
[2025-04-18] MEDS: POTASSIUM PHOSPHATE 22 MEQ in SODIUM CHL 0.9% 100 ML IV ONE (16:04)
[2025-04-18] MEDS: LEVOTHYROXINE SODIUM 100 MCG/5 ML INJ IV SCH (18:01)
[2025-04-18] MEDS: TPN PER PHARMACY IV NR (22:02)
[2025-04-19] VITALS (10 sets, daily range): BP systolic 107–136; BP diastolic 68–77; PULSE 93–120; RESP 17–19; TEMP 97.3–98.4; O2SAT 96–100
[2025-04-19] MEDS: ACETAMINOPHEN 650 MG RECT SUPP PR ONE (04:15)
[2025-04-19 05:40] LABS: Potassium 4.2 mmol/L (3.5-5.1); Sodium 145.0 mmol/L (136-145)
[2025-04-19 05:41] LABS: Anion Gap 13.0 (5-15); Calcium 9.0 mg/dL (8.7-10.4); Carbon Dioxide 21.0 mmol/L (20-31)
[2025-04-19 05:46] LABS: BUN/Creatinine Ratio 53.0 (10.0-20.0); Magnesium 2.3 mg/dL (1.6-2.6)
[2025-04-19 05:48] LABS: Albumin 3.6 g/dL (3.2-4.8); Blood Urea Nitrogen 44.0 mg/dL (9-23); Chloride 111.0 mmol/L (98-107); Glucose 265.0 mg/dL (74-106)
[2025-04-19] MEDS ORDERED: ACETAMINOPHEN 650 MG RECT SUPP PR PRN (10:30)
--- NOTE | 2025-04-19 10:32 | DVHPN2 ---
Progress Note Date Seen: Apr 19, 2025 Medical Necessity Reason Pt with a Central, PICC or Fol: No Subjective Patient reports: No new complaints Review of Systems: HEENT:Normal, CVS:Normal, RESPIRATORY:Normal, GI:Normal, :Normal, MSK:Normal, NEURO:Normal Objective vital signs Vital Sign Date Time Temp Pulse Resp B/P (MAP) Pulse Ox O2 Delivery O2 Flow Rate FiO2 04/19/25 09:00 97.5 97 19 134/73 (93) 96 97.5 04/19/25 08:20 Room Air* 0 21 Total Intake and Output 04/18/25 04/18/25 04/19/25 15:00 23:00 07:00 Intake Total 50 ml 920 ml 450 ml Output Total 550 ml 330 ml 600 ml Balance -500 ml 590 ml -150 ml medications Current Medications Medications Dose Ordered Sig/Carl Route Start Time Stop Time Status Last Admin Dose Admin Famotidine 20 mg DAILY IV 04/13/25 10:00 04/18/25 11:18 20 MG Ondansetron HCl 4 mg Q4HP PRN IV 04/12/25 13:30 Acetaminophen 650 mg Q6HP PRN PO 04/12/25 13:30 Hydrocortisone Acetate 25 mg Q12HR IN 04/12/25 22:00 04/17/25 10:00 25 MG Amino Acids 0 ml @ 0 mls/hr PER PHARMACY IV 04/15/25 17:15 Dextrose 50 ml UD IV 04/15/25 22:00 Insulin Human Regular FOLLOW SLIDING SCALE Q6HR SC 04/15/25 22:00 04/19/25 05:48 12 UNITS Diagnostic Test (Pha) 1 strip Q6HR 04/15/25 22:00 04/19/25 05:42 1 STRIP Sodium Chloride 10 ml QSHIFT@10,22 IV 04/16/25 22:00 04/18/25 22:18 10 ML Meropenem 50 ml @ 17 mls/hr Q12HR IV 04/17/25 12:00 04/18/25 21:51 17 MLS/HR Amino Acids 1,000 ml @ 41 mls/hr DAILY@2000 IV 04/17/25 20:00 04/17/25 21:59 Cancel Fat Emulsion Intravenous 100 ml/Potassium Phosphate 44 meq/ Multivitamins 10 ml/Chromium/ Copper/Manganese/ Zinc 1 ml/Insulin Human Regular 8 units/Amino Acids/ Dextrose/Purified Water 1,221.08 ml @ 50 mls/hr [id number] IV 04/18/25 22:00 04/19/25 21:59 04/18/25 22:02 50 MLS/HR Bumetanide 1 mg DAILY IV 04/19/25 10:00 Levothyroxine Sodium 50 mcg DAILY IV 04/18/25 16:45 04/18/25 18:01 50 MCG Fat Emulsion Intravenous 100 ml/Potassium Phosphate 44 meq/ Multivitamins 10 ml/Insulin Human Regular 10 units/ Amino Acids/ Dextrose/Purified Water 1,270.1 ml @ 53 mls/hr [id number] IV 04/19/25 22:00 04/20/25 21:59 Examination: GENERAL:Normal, HEENT:Normal, NECK:Normal, LUNGS:Normal, CVS:Normal, ABDOMEN:Normal, ABDOMEN:Abnormal (DISTENDED, SOFT), MSK:Normal, SKIN:Normal, NEURO:Normal, :Normal laboratory and microbiology Laboratory Tests 04/19/25 04:35 04/17/25 05:00 Test 04/19/25 04:35 Range/Units Serum Glucose 265 H 74-106 mg/dL Microbiology Date/Time Source Procedure Growth Status 04/14/25 15:00 Urine - Dang Port Urine Culture - Final Complete Problem List/Assessment/Plan Problem List/Assessment/Plan #1 sepsis with uti: iv meropenem #2 abd pain with large ovarian cyst with bowel obstruction: npo, tpn #3 acute on chronic systolic heart failure #4 dm: ssi #5 hypothyroidism: check tsh #6 gout #7 ckd stage 3 await transfer to higher level of care advance care planning- dnr- time spent 18 mins Plan discussed with: Patient, Daughter My Orders My Orders Orders - DELLA KENNY MD Procedure Category Date Status Time Acetaminophen PHA 04/19/25 Transmitted Suppository (Tylenol 10:30 Complete Blood Count LAB 04/20/25 Verified 06:00 Thyroid Stimulating LAB 04/20/25 Verified Hormone 05:00 Chest Portable XY 04/19/25 Verified 10:30 Dietary Evaluation Review Comments: Follow up with GI photo assessment report Encourage and monitor PO intake when medical feasible accommondate her needs for Hala meats F/U in 3-5 days Expected Outcomes/Goals: gradual wt gain Date of Service: Apr 19, 2025 Billing Provider: DELLA KENNY MD Common Visit Codes: [id number] INP/OBS CARE(HIGH) DELLA KENNY MD Apr 19, 2025 10:32
[2025-04-19] MEDS: BUMETANIDE 1mg/4ml VIAL (0.25mg/ml) IV SCH (11:10)
[2025-04-19] MEDS: POTASSIUM PHOSPHATE 22 MEQ in SODIUM CHL 0.9% 100 ML IV ONE (14:54)
[2025-04-19] MEDS: ACETAMINOPHEN 650 MG RECT SUPP PR PRN (16:32)
--- NOTE | 2025-04-19 18:50 | DVH ---
CHEST RADIOGRAPH Indication: CHF Technique: Single frontal view of the chest was obtained Comparison: XY CHEST PORTABLE on DOS: 04/16/25, XY CHEST PORTABLE on DOS: 04/14/25, XY CHEST PORTABLE o n DOS: 04/14/25 FINDINGS: Lines and Tubes: PICC line in place right arm unchanged with the catheter in the superior vena cava o r cavoatrial junction. Lungs: No focal consolidation. Pleura: No effusion. No pneumothorax. Cardiomediastinal contours: Cardiomegaly Bones: No acute osseous abnormality. IMPRESSION: 1. No significant change from 04/16/2025
[2025-04-19] MEDS ORDERED: LORazepam 2MG/ML-1ML VIAL IV PRN (19:45)
[2025-04-19] MEDS: LORazepam 2MG/ML-1ML VIAL IV ONE (19:45)
[2025-04-19] MEDS: TPN PER PHARMACY IV NR (22:17)
[2025-04-20] VITALS (8 sets, daily range): BP systolic 107–125; BP diastolic 65–86; PULSE 93–110; RESP 16–20; TEMP 97.1–98.1; O2SAT 97–100
[2025-04-20 05:05] LABS: Hemoglobin 12.8 g/dL (12.2-16.2); Nucleated Red Blood Cells % 0.1 %
[2025-04-20 05:07] LABS: Hematocrit 39.4 % (36.0-46.0); Mean Corpuscular Hemoglobin 26.7 pg (28.0-32.0); Mean Corpuscular Volume 82.2 fL (80.0-100.0)
[2025-04-20 05:21] LABS: Albumin 3.5 g/dL (3.2-4.8); Anion Gap 11 (5-15); BUN/Creatinine Ratio 45.8 (10.0-20.0); Calcium 9.0 mg/dL (8.7-10.4); Carbon Dioxide 23 mmol/L (20-31); Magnesium 1.9 mg/dL (1.6-2.6); Potassium 3.7 mmol/L (3.5-5.1); Total Protein 6.5 g/dL (5.7-8.2)
[2025-04-20 05:22] LABS: Bilirubin, Total 0.9 mg/dL (0.2-1.0)
[2025-04-20 05:29] LABS: Alanine Aminotransferase 51 U/L (7-40); Alkaline Phosphatase 192 U/L (46-116); Blood Urea Nitrogen 38 mg/dL (9-23); Chloride 112 mmol/L (98-107); Glucose 231 mg/dL (74-106); Sodium 146 mmol/L (136-145)
--- NOTE | 2025-04-20 09:15 | DVHPN2 ---
Chief Complaints Patient reports: No new complaints Nursing reports: No new complaints, Other (c/o distended abdomen) Objective Vitals Vital Signs Date Time Temp Pulse Resp B/P (MAP) Pulse Ox O2 Delivery O2 Flow Rate FiO2 04/20/25 05:00 97.1 98 18 122/71 (88) 100 97.1 04/19/25 20:00 Room Air* 0 21 Medications Current Medications Medications (Trade) Dose Ordered Sig/Carl Route PRN Reason Start Time Stop Time Status Last Admin Acetaminophen (Tylenol Suppository) 650 mg Q6HP PRN [place] MILD PAIN (1-3 PAIN SCALE) 04/19/25 11:00 04/19/25 16:32 Bumetanide (Bumex Injection) 1 mg DAILY IV 04/19/25 10:00 04/19/25 11:10 Fat Emulsion Intravenous 100 ml/Potassium Phosphate 44 meq/ Multivitamins 10 ml/Insulin Human Regular 12 units/ Amino Acids/ Dextrose/Purified Water 1,270.12 ml @ 53 mls/hr [id number] IV 04/19/25 22:00 04/20/25 21:59 04/19/25 22:17 Lorazepam (Ativan Inj) 0.5 mg Q8HP PRN IV ANXIETY 04/19/25 19:45 Abdominal: Distended, Other (nobowl sounds ) Studies Laboratory Tests 04/20/25 04:26 Test 04/20/25 04:26 Range/Units Serum Glucose 231 H 74-106 mg/dL Ass/Plan Assessment ovarian mass bowel obstruction UNCHANGED ON TPN Plan awiting transfer to [facility] Visit Coding OBGYN Date of Service: Apr 20, 2025 Billing Provider: AGUSTIN LARSEN DO TOWER OPERATOR Common Visit Codes: [id number] INP/OBS CARE(HIGH) AGUSTIN LARSEN DO Apr 20, 2025 09:15
--- NOTE | 2025-04-20 10:05 | DVHPN2 ---
Progress Note Date Seen: Apr 20, 2025 Medical Necessity Reason Pt with a Central, PICC or Fol: No Subjective Patient reports: No new complaints Review of Systems: HEENT:Normal, CVS:Normal, RESPIRATORY:Normal, GI:Normal, :Normal, MSK:Normal, NEURO:Normal Objective vital signs Vital Sign Date Time Temp Pulse Resp B/P (MAP) Pulse Ox O2 Delivery O2 Flow Rate FiO2 04/20/25 09:30 98.1 99 16 125/79 (94) 100 98.1 04/20/25 08:30 Room Air* 0 21 Total Intake and Output 04/19/25 04/19/25 04/20/25 15:00 23:00 07:00 Intake Total 50 ml 821.08 ml 474 ml Output Total 1800 ml 800 ml Balance 50 ml -978.92 ml -326 ml medications Current Medications Medications Dose Ordered Sig/Carl Route Start Time Stop Time Status Last Admin Dose Admin Famotidine 20 mg DAILY IV 04/13/25 10:00 04/19/25 11:11 20 MG Ondansetron HCl 4 mg Q4HP PRN IV 04/12/25 13:30 Amino Acids 0 ml @ 0 mls/hr PER PHARMACY IV 04/15/25 17:15 Dextrose 50 ml UD IV 04/15/25 22:00 Insulin Human Regular FOLLOW SLIDING SCALE Q6HR SC 04/15/25 22:00 04/20/25 06:15 4 UNITS Diagnostic Test (Pha) 1 strip Q6HR 04/15/25 22:00 04/20/25 06:11 1 STRIP Sodium Chloride 10 ml QSHIFT@10,22 IV 04/16/25 22:00 04/19/25 22:16 10 ML Meropenem 50 ml @ 17 mls/hr Q12HR IV 04/17/25 12:00 04/19/25 22:16 17 MLS/HR Amino Acids 1,000 ml @ 41 mls/hr DAILY@1999 IV 04/17/25 20:00 04/17/25 21:59 Cancel Bumetanide 1 mg DAILY IV 04/19/25 10:00 04/19/25 11:10 1 MG Levothyroxine Sodium 50 mcg DAILY IV 04/18/25 16:45 04/19/25 11:11 50 MCG Fat Emulsion Intravenous 100 ml/Potassium Phosphate 44 meq/ Multivitamins 10 ml/Insulin Human Regular 12 units/ Amino Acids/ Dextrose/Purified Water 1,270.12 ml @ 53 mls/hr [id number] IV 04/19/25 22:00 04/20/25 21:59 04/19/25 22:17 53 MLS/HR Acetaminophen 650 mg Q6HP PRN [place] 04/19/25 11:00 04/19/25 16:32 650 MG Lorazepam 0.5 mg Q8HP PRN IV 04/19/25 19:45 Fat Emulsion Intravenous 100 ml/Potassium Acetate 40 meq/ Multivitamins 10 ml/Chromium/ Copper/Manganese/ Zinc 1 ml/Insulin Human Regular 15 units/Amino Acids/ Dextrose/Purified Water 1,281.15 ml @ 53 mls/hr [id number] IV 04/20/25 22:00 04/21/25 21:59 Examination: GENERAL:Normal, HEENT:Normal, NECK:Normal, LUNGS:Normal, CVS:Normal, ABDOMEN:Normal, ABDOMEN:Abnormal (MILD DISTENSION), MSK:Normal, SKIN:Normal, NEURO:Normal, :Normal laboratory and microbiology Laboratory Tests 04/20/25 04:26 Test 04/20/25 04:26 Range/Units Serum Glucose 231 H 74-106 mg/dL Microbiology Date/Time Source Procedure Growth Status 04/14/25 15:00 Urine - Dang Port Urine Culture - Final Complete Problem List/Assessment/Plan Problem List/Assessment/Plan #1 sepsis with uti: iv meropenem #2 abd pain with large ovarian cyst with bowel obstruction: npo, tpn #3 acute on chronic systolic heart failure: bumex iv #4 dm: ssi #5 hypothyroidism: check tsh #6 gout #7 ckd stage 3 await transfer to higher level of care advance care planning- dnr- time spent 18 mins Plan discussed with: Patient, Daughter, Son My Orders My Orders Orders - DELLA KENNY MD Procedure Category Date Status Time Chest Portable XY 04/19/25 Resulted 10:30 Acetaminophen PHA 04/19/25 In Process Suppository (Tylenol 11:00 Lorazepam 2mg/Ml Inj PHA 04/19/25 In Process (Ativan Inj) 19:45 Complete Blood Count LAB 04/21/25 Verified 06:00 Dietary Evaluation Review Comments: Follow up with GI photo assessment report Encourage and monitor PO intake when medical feasible accommondate her needs for Hala meats F/U in 3-5 days Expected Outcomes/Goals: gradual wt gain Date of Service: Apr 20, 2025 Billing Provider: DELLA KENNY MD Common Visit Codes: [id number] INP/OBS CARE(HIGH) DELLA KENNY MD Apr 20, 2025 10:05
[2025-04-20] MEDS ORDERED: TPN PER PHARMACY IV NR (22:00)
== END 2025-04-20 21:06 | disposition short-term general hospital (02) | DRG 871 ==
LOC: ER 08:13 → EDBD 08:13 → OVERFLOW 15:09 → WEST WING 17:57 → CENTRAL 19:35 → TELE-CENTR 04-15 21:22
PROVIDERS: ADMIT Internal Medicine; ATTEND Internal Medicine
PROC: 0D9670Z Drainage of Stomach with Drainage Device, Via Natural or Artificial Opening (ICD-10-PCS; principal; 2025-04-14)
PROC: 02HV33Z Insertion of Infusion Device into Superior Vena Cava, Percutaneous Approach (ICD-10-PCS; 2025-04-16)
PROC: B548ZZA Ultrasonography of Superior Vena Cava, Guidance (ICD-10-PCS; 2025-04-16)
DX: A41.9 Sepsis, unspecified organism (principal); J12.9 Viral pneumonia, unspecified; I13.0 Hypertensive heart and chronic kidney disease with heart failure and stage 1 through stage 4 chronic kidney disease, or unspecified chronic kidney disease; N39.0 Urinary tract infection, site not specified; K56.609 Unspecified intestinal obstruction, unspecified as to partial versus complete obstruction; I50.32 Chronic diastolic (congestive) heart failure; E11.22 Type 2 diabetes mellitus with diabetic chronic kidney disease; Z66 Do not resuscitate; E11.65 Type 2 diabetes mellitus with hyperglycemia; E03.9 Hypothyroidism, unspecified; M10.9 Gout, unspecified; N18.30 Chronic kidney disease, stage 3 unspecified; I48.91 Unspecified atrial fibrillation; N83.201 Unspecified ovarian cyst, right side; R19.03 Right lower quadrant abdominal swelling, mass and lump; Z88.0 Allergy status to penicillin; Z88.5 Allergy status to narcotic agent; Z90.49 Acquired absence of other specified parts of digestive tract; Z82.49 Family history of ischemic heart disease and other diseases of the circulatory system; Z83.3 Family history of diabetes mellitus; Z51.5 Encounter for palliative care
CPT/HCPCS: 36415; 36569; 71045; 74018; 74176; 74250; 76856; 76937; 80048; 80053; 80069; 81001; 82040; 82962; 83036; 83690; 83735; 83880; 84100; 84443; 84478; 85025; 85610; 85730; 86304; 87086; 96360; 97110; 97116; 97163; 97530; G0378; J1335; J1815; J2185; J3490